=== PATIENT | female | born 1950 | race African-American/Black ===

== ENCOUNTER 2017-01-16 13:46 | Inpatient (IN) | payer OTHER ==
[2017-01-16 13:57] VITALS: BMI 47.8
[2017-01-16] MEDS ORDERED: KETOROLAC TROMETHAMINE 10 MG TABLET PO ONE (14:16)
[2017-01-16] MEDS ORDERED: KETOROLAC TROMETHAMINE 60 MG/2 ML VIAL IVPUSH ONE (14:22)
[2017-01-16] MEDS ORDERED: KETOROLAC TROMETHAMINE 60 MG/2 ML VIAL IM ONE (14:25)
--- NOTE | 2017-01-16 14:35 | PDOC ---
History of Present Illness - General Chief Complaint: Injury Stated Complaint: FALL/LEG PAIN Time Seen by Provider: 01/16/17 13:59 - History of Present Illness Initial Comments: 01/16/17 14:29 Ms. Garcia is a 66 yo F with h/o morbid obesity, mechanical fall ( 11/11/15), HTN , and arthritis who presents with right knee pain following mechanical fall. She reports walking to [facility] [employer] approximately one hour ago when her shoe became "caught on the sidewalk." She fell directly on her right knee and landed on her right hip. She denies back or head trauma. Denies inciting syncopal event , dizziness, or presyncope precipitating fall. Denies MCKEON, neck stiffness, N/V, LOC, weakness, chest pain, abdominal glover, SOB, or fatigue. Pt. arrived in EMS, and denies ambulation following the fall. Her immobility is d/t pain. Past History - Past History Allergies/Adverse Reactions: Allergies No Known Drug Allergies Allergy (Verified 01/16/17 13:58) Home Medications: Ambulatory Orders Gabapentin [Neurontin] 300 mg PO TID 11/11/15 Tramadol HCl 25 mg PO QID 11/11/15 Valsartan/Hydrochlorothiazide [Diovan Hct 160-25 mg Tablet] 1 combo PO DAILY 06/16 Felodipine [Felodipine ER] 2.5 mg PO DAILY 05/16/16 - Social History Smoking Status: Never smoked Review of Systems - Review of Systems Comments:: 01/16/17 14:34 GENERAL/CONSTITUTIONAL: No fever or chills. No weakness. HEAD, EYES, EARS, NOSE AND THROAT: No change in vision. No ear pain or discharge. No sore throat. CARDIOVASCULAR: No chest pain or shortness of breath RESPIRATORY: No cough, wheezing, or hemoptysis. GASTROINTESTINAL: No nausea, vomiting, diarrhea or constipation. GENITOURINARY: No dysuria, frequency, or change in urination. MUSCULOSKELETAL: + arthralgias. No joint or muscle swelling . No neck or back pain. SKIN: No rash NEUROLOGIC: No headache, vertigo, loss of consciousness, or change in strength/ sensation. ENDOCRINE: No increased thirst. No abnormal weight change HEMATOLOGIC/LYMPHATIC: No anemia, easy bleeding, or history of blood clots. ALLERGIC/IMMUNOLOGIC: No hives or skin allergy. *Physical Exam - Vital Signs Last Vital Signs Temp Pulse Resp BP Pulse Ox 97.8 F 94 H 16 159/88 97 01/16/17 13:54 01/16/17 13:54 01/16/17 13:54 01/16/17 13:54 01/16/17 13:54 - Physical Exam Comments: 01/16/17 14:35 GENERAL: Awake, alert, and fully oriented, in no acute distress HEAD: No signs of trauma, normocephalic, atraumatic EYES: PERRLA, EOMI, sclera anicteric, conjunctiva clear ENT: Auricles normal inspection, hearing grossly normal, nares patent, oropharynx clear without exudates. Moist mucosa NECK: Normal ROM, supple, no lymphadenopathy, JVD, or masses LUNGS: No distress, speaks full sentences, clear to auscultation bilaterally HEART: Denies rib pain. Chest nontender to palpation. Regular rate and rhythm, normal S1 and S2, no murmurs, rubs or gallops, peripheral pulses normal and equal bilaterally. ABDOMEN: Soft, nontender, normoactive bowel sounds. No guarding, no rebound. No masses EXTREMITIES: Normal inspection, no edema. No clubbing or cyanosis. Able to plantat flex, and dorsal flex knees BL. Knee exam: Right knee exam limited d/t pain and morbid obesity. Difficult to assess. Clear to inspection. No visible abrasions, ecchymosis, or effusions. Inadequate passive and active range of motion on knee flexion/extension/ abduction/adduction. No bony deformities visualized. TTP at tibial tuberosity and inferior patella. Hip exam: Limited exam. Pt. right leg shortened and externally rotated. TTP at right greater trochanter. NEUROLOGICAL: Cranial nerves II through XII grossly intact. Normal speech, normal gait, no focal sensorimotor deficits SKIN: Warm, Dry, normal turgor, no rashes or lesions noted. ED Treatment Course - LABORATORY CBC & Chemistry Diagram: 01/16/17 16:30 01/16/17 16:30 - RADIOLOGY Radiology Studies Ordered: Category Date Time Status HIP & PELVIS-RIGHT [RAD] Stat Radiology 01/16/17 14:28 Ordered KNEE 3 POS-RIGHT [RAD] Stat Radiology 01/16/17 14:28 Ordered - Medications Given in the ED: ED Medications Discontinued Medications Generic Name Dose Route Start Last Admin Trade Name Michelle PRN Reason Stop Dose Admin Ketorolac Tromethamine 20 mg 01/16/17 14:16 01/16/17 14:23 Toradol PO 01/16/17 14:17 Not Given ONCE ONE Medical Decision Making - Medical Decision Making 01/16/17 14:39 66 yo F with h/o morbid obesity, HTN, arthritis, who presents with right knee/ hip pain 2/2 mechanical fall. Denies head/neck/back involvement. Denies intoxication or precipitating syncopal/pre syncopal event. Fall as a result of improper foot placement. No concern for right ankle trauma. Normal plantar and dorsal flexion. No concern for rib fracture. Absent paradoxical breathing, or chest wall tenderness. There is a moderate suspicion for right hip/pelvic fracture. Right leg is shortened and fixed in external rotation. Pain to palpation over greater trochanter. Moderate suspicion for right knee injury/ fracture. Unable to passively flex/extend right knee. Potentially d/t pain vs. immobility. Physical exam limited d/t morbid obesity. ED Course: - Ketorolac 60 mg IM - Knee 3 POS-RT - HIP & PELVIS RT 01/16/17 16:43 - Knee 3 POS-RT Reveals distal comminuted laterally displaced femur fracture. - HIP & PELVIS - no acute fracture or pathology 01/16/17 16:44 CBC, CMP, PT/INR EKG CXR Admit to Med/Surg and consult Orthopedics *DC/Admit/Observation/Transfer Diagnosis at time of Disposition: Femur fracture, right Qualifiers: Encounter type: initial encounter Fracture morphology: comminuted Fracture alignment: displaced - Discharge Dispostion Condition at time of disposition: Stable Admit: Yes - Referrals Referrals: Warren Ruggiero MD [Primary Care Provider] - - Attestations Physician Attestion: 01/16/17 17:50 I, Dr. Ashvin York, attest that this document has been prepared under my direction and personally reviewed by me in its entirety. I further attest, that it accurately reflects all work, treatment, procedures and medical decision -making performed by me.
[2017-01-16] MEDS ORDERED: KETOROLAC TROMETHAMINE 60 MG/2 ML VIAL ONE (14:42)
--- NOTE | 2017-01-16 15:03 | PDOC ---
Attending Attestation - Resident Resident Name: Ashvin York - ED Attending Attestation I have performed the following: I have examined & evaluated the patient, The case was reviewed & discussed with the resident, I agree w/resident's findings & plan, Exceptions are as noted - HPI HPI: 01/16/17 14:58 66-year-old female presents with right leg pain after mechanical trip and fall on the sidewalk. No near syncope or loss of consciousness, no head injury, no cardiopulmonary complaints. She was unable to stand or move her right leg since the fall, brought in by EMS and has the same complaints here. - Physicial Exam PE: 01/16/17 14:58 Vital signs normal. Well-appearing, seated in stretcher Atraumatic except for right leg: Is slightly shortened and externally rotated, pelvis is stable, she does have some tenderness to the lateral right hip, but no deformity. Right knee is also tender in the proximal tibia and laterally over the proximal fibula, no palpable deformity. No appreciable joint effusion, she is able to slightly range her knee but not her hip. Neurovascularly intact distally, full range of motion of the ankle and toes. - Medical Decision Making 01/16/17 15:03 Patient seen and evaluated with the resident. I agree with the overall evaluation, assessment, and management with the following summary of visit: 66-year-old female with mechanical trip and fall and right leg injury. Rule out hip or knee fracture, neurovascularly intact. No other injuries. Pain control Right hip/pelvis, right knee x-rays Reassess 01/16/17 16:15 On my preliminary review of the xrays, there is a displaced fracture of the distal R femur. Ortho consult and admission v. transfer. Heart Score/ECG Review #1 ECG reviewed & interpreted by me at: 16:32 General ECG Interpretation: Sinus Rhythm, Normal Rate (71), Normal Intervals, No acute ischemic changes (t wave flattening V3-6)
[2017-01-16 16:44] LABS: BASOPHIL 0.7 % (0-2.0); EOSINOPHIL 2.6 % (0-4.5); MCH 23.2 pg (25.7-33.7); MCHC 31.5 g/dl (32.0-36.0); MEAN CELL VOLUME 73.6 fl (80-96); MEAN PLT VOLUME 8.1 fl (7.5-11.1); NEUTROPHILS 69.1 % (42.8-82.8); PLATELET COUNT 307 K/MM3 (134-434); RDW 17.4 % (11.6-15.6); WHITE BLOOD COUNT 8.3 K/mm3 (4.0-10.0)
[2017-01-16 17:05] LABS: INR 1.08 (0.82-1.09); PROTHROMBIN TIME (PATIENT) 11.9 SEC (9.98-11.88)
[2017-01-16 17:20] LABS: ALBUMIN 3.4 g/dl (3.4-5.0); ANION GAP 10 (8-16); BILIRUBIN,TOTAL 0.3 mg/dL (0.2-1.0); CALCIUM 8.9 mg/dL (8.5-10.1); CO2 28 mmol/L (21-32); CREATININE 0.6 mg/dL (0.55-1.02); GLUCOSE,RANDOM 101 mg/dL (74-106); SGOT/AST 21 U/L (15-37); SGPT/ALT 17 U/L (12-78); TOT PROT 6.8 g/dl (6.4-8.2)
[2017-01-16 17:21] LABS: ALK PHOS 160 U/L (45-117)
--- NOTE | 2017-01-16 17:30 | HP ---
CHIEF COMPLAINT: Right leg pain s/p fall PCP: Warren Ruggiero HISTORY OF PRESENT ILLNESS: This is a 66 year old female with PMHx of HTN, arthritis, hysterectomy/oophrectomy 1996, gastric bypass 2007 who presented to the ED s/p mechanical fall with right leg pain. The patient reports around 1: 15pm she was walking to the [employer] and lost her footing and tripped on the sidewalk. She fell, but did not hit her head or lose consciousness. She reports that she ambulates with a cane and has for a few years now. She denies any nausea, vomiting, headache, dizziness, bladder or bowel incontinence. She reports her pain is an 8/10 to her right leg. ER course was notable for: (1) H/H 9.5/30.1 (2) temp 97.8, pulse 94, bp 159/88, resp 16, o2 97% on RA (3) Right knee x-ray my read: displaced distal right femur fracture (4) Per ED sign out, Dr. Bush made aware of consult PAST MEDICAL HISTORY: HTN, arthritis PAST SURGICAL HISTORY: Hysterectomy/oophrectomy. Gastric bypass Social History: Smoking: none Alcohol: two drinks, once every other week Drugs: none Family History: non-contributory Allergies No Known Drug Allergies Allergy (Verified 01/16/17 13:58) HOME MEDICATIONS: Home Medications Medication Instructions Recorded Gabapentin [Neurontin] 300 mg PO TID 11/11/15 Tramadol HCl 25 mg PO QID 11/11/15 Valsartan/Hydrochlorothiazide 1 combo PO DAILY 11/11/15 [Diovan Hct 160-25 mg Tablet] Felodipine [Felodipine ER] 2.5 mg PO DAILY 05/16/16 REVIEW OF SYSTEMS CONSTITUTIONAL: Absent: fever, chills, diaphoresis, generalized weakness, malaise, loss of appetite, weight change HEENT: Absent: rhinorrhea, nasal congestion, throat pain, throat swelling, difficulty swallowing, mouth swelling, ear pain, eye pain, visual changes CARDIOVASCULAR: Absent: chest pain, syncope, palpitations, irregular heart rate , lightheadedness, peripheral edema RESPIRATORY: Absent: cough, shortness of breath, dyspnea with exertion, orthopnea, wheezing, stridor, hemoptysis GASTROINTESTINAL:Absent: abdominal pain, abdominal distension, nausea, vomiting , diarrhea, constipation, melena, hematochezia GENITOURINARY: Absent: dysuria, frequency, urgency, hesitancy, hematuria, flank pain, genital pain MUSCULOSKELETAL: Right leg pain s/p mechanical fall this afternoon. Absent: back pain, neck pain SKIN: Absent: rash, itching, pallor HEMATOLOGIC/IMMUNOLOGIC: Absent: easy bleeding, easy bruising, lymphadenopathy, frequent infections ENDOCRINE:Absent: unexplained weight gain, unexplained weight loss, heat intolerance, cold intolerance NEUROLOGIC: Absent: headache, focal weakness or paresthesias, dizziness, unsteady gait, seizure, mental status changes, bladder or bowel incontinence PSYCHIATRIC: Absent: anxiety, depression, suicidal or homicidal ideation, hallucinations. PHYSICAL EXAMINATION Vital Signs - 24 hr 01/16/17 13:54 Temperature 97.8 F Pulse Rate 94 H Respiratory 16 Rate Blood Pressure 159/88 O2 Sat by Pulse 97 Oximetry (%) GENERAL: Awake, alert, and fully oriented, in no acute distress. Morbid obesity HEAD: Normal with no signs of trauma. EYES: Pupils equal, round and reactive to light, extraocular movements intact, sclera anicteric, conjunctiva clear. No lid lag. EARS, NOSE, THROAT: Ears normal, nares patent. Moist mucous membranes. NECK: Normal range of motion, supple without lymphadenopathy, or masses. LUNGS: Breath sounds equal, clear to auscultation bilaterally. No wheezes, and no crackles. No accessory muscle use. HEART: Regular rate and rhythm, normal S1 and S2 ABDOMEN: Soft, nontender, not distended, normoactive bowel sounds, no guarding, no rebound, no masses MUSCULOSKELETAL: No CVA tenderness. UPPER EXTREMITIES: 2+ pulses, warm, well-perfused. No cyanosis. No clubbing. No peripheral edema. LOWER EXTREMITIES: Right hip abduction. Right thigh tenderness, decrease ROM 2/ 2 tenderness. 2+ pulses, warm, well-perfused. No calf tenderness. NEUROLOGICAL: Cranial nerves II-XII intact. Normal speech. Gait not observed PSYCHIATRIC: Cooperative. Good eye contact. Appropriate mood and affect. SKIN: Warm, dry, normal turgor, no rashes or lesions noted, normal capillary refill. CBCD WBC 8.3 K/mm3 (4.0-10.0) 01/16/17 16:30 RBC 4.09 M/mm3 (3.60-5.2) 01/16/17 16:30 Hgb 9.5 GM/dL (10.7-15.3) L 01/16/17 16:30 Hct 30.1 % (32.4-45.2) L 01/16/17 16:30 MCV 73.6 fl (80-96) L 01/16/17 16:30 MCHC 31.5 g/dl (32.0-36.0) L 01/16/17 16:30 RDW 17.4 % (11.6-15.6) H 01/16/17 16:30 Plt Count 307 K/MM3 (134-434) 01/16/17 16:30 MPV 8.1 fl (7.5-11.1) 01/16/17 16:30 CMP Sodium 135 mmol/L (136-145) L 01/16/17 16:30 Potassium 3.7 mmol/L (3.5-5.1) 01/16/17 16:30 Chloride 97 mmol/L (98-107) L 01/16/17 16:30 Carbon Dioxide 28 mmol/L (21-32) 01/16/17 16:30 Anion Gap 10 (8-16) 01/16/17 16:30 BUN 18 mg/dL (7-18) 01/16/17 16:30 Creatinine 0.6 mg/dL (0.55-1.02) 01/16/17 16:30 Creat Clearance w eGFR > 60 (>60) 01/16/17 16:30 Random Glucose 101 mg/dL (74-106) 01/16/17 16:30 Calcium 8.9 mg/dL (8.5-10.1) 01/16/17 16:30 Total Bilirubin 0.3 mg/dL (0.2-1.0) 01/16/17 16:30 AST 21 U/L (15-37) 01/16/17 16:30 ALT 17 U/L (12-78) 01/16/17 16:30 Alkaline Phosphatase 160 U/L (45-117) H 01/16/17 16:30 Total Protein 6.8 g/dl (6.4-8.2) 01/16/17 16:30 Albumin 3.4 g/dl (3.4-5.0) 01/16/17 16:30 ASSESSMENT: This is a 66 year old female with PMHx of HTN, arthritis, hysterectomy/oophrectomy 1996, gastric bypass 2007 who presented to the ED s/p mechanical fall with right leg pain. Plan: 1) Ortho: Displaced distal right femur fracture - Pain management - Bedrest - SCD left leg only - F/u ortho consult 2) Cardiology: HTN - Continue Norvasc - Continue Diovan 3) F/E/N: - Monitor electrolytes - NPO until evaluated by ortho 4) Prophylaxis: - Hold all chemical DVT prophylaxis 2/2 possible surgery, awaiting ortho consult - SCDs left leg only 5) Dispo: - Requires continued inpatient care CODE STATUS: FULL CODE Problem List - Problem (1) Femur fracture, right Code(s): S72.91XA - UNSP FRACTURE OF RIGHT FEMUR, INIT FOR CLOS FX Qualifiers : Encounter type: initial encounter Fracture morphology: comminuted Fracture alignment: displaced (2) Hypertension Code(s): I10 - ESSENTIAL (PRIMARY) HYPERTENSION Visit type - Emergency Visit Emergency Visit: Yes ED Registration Date: 01/16/17 Care time: The patient presented to the Emergency Department on the above date and was hospitalized for further evaluation of their emergent condition. - New Patient This patient is new to me today: Yes Date on this admission: 01/17/17 - Critical Care Critical Care patient: No
[2017-01-16] MEDS ORDERED: morphine CARPU-JECT 2 MG/1 ML DISP.SYRIN ONE (17:59)
[2017-01-16] MEDS: DEXTROSE 5%-0.45% SALINE 1,000 ML IV SCH (18:00)
[2017-01-16] MEDS: morphine CARPU-JECT 2 MG/1 ML DISP.SYRIN IVPB PRN ×2 (18:00→23:12)
[2017-01-16] MEDS ORDERED: traMADol HCL 50 MG TABLET PO SCH (18:00)
[2017-01-16] MEDS: GABAPENTIN 100 MG CAPSULE (FP) PO SCH (22:37)
[2017-01-17] MEDS: GABAPENTIN 100 MG CAPSULE (FP) PO SCH ×3 (05:03→21:45)
[2017-01-17] MEDS: morphine CARPU-JECT 2 MG/1 ML DISP.SYRIN IVPB PRN ×4 (05:29→21:45)
[2017-01-17] MEDS: DEXTROSE 5%-0.45% SALINE 1,000 ML IV SCH ×2 (06:41→17:07)
[2017-01-17 07:13] LABS: ANION GAP 7 (8-16); CALCIUM 8.7 mg/dL (8.5-10.1); CO2 29 mmol/L (21-32); CREATININE 0.6 mg/dL (0.55-1.02); GLUCOSE,RANDOM 119 mg/dL (74-106); SGPT/ALT 17 U/L (12-78)
[2017-01-17 07:14] LABS: ALK PHOS 146 U/L (45-117); BILIRUBIN,TOTAL 0.6 mg/dL (0.2-1.0); TOT PROT 6.1 g/dl (6.4-8.2)
[2017-01-17 07:17] LABS: SGOT/AST 23 U/L (15-37)
[2017-01-17] MEDS ORDERED: PATIENT'S OWN MEDICATION (NON-FORMULARY) (Valsartan/Hydrochlorothiazide [Diovan Hct 160-25 PO SCH (10:00)
[2017-01-17] MEDS: amLODIPine BESYLATE 2.5 MG TABLET (FP) PO SCH (10:27)
[2017-01-17] MEDS: VALSARTAN 160 MG TABLET (UD) PO SCH (10:27)
[2017-01-17] MEDS: HYDROCHLOROTHIAZIDE 25 MG TABLET (FP) PO SCH (10:27)
[2017-01-17 12:00] LABS: MCH 23.3 pg (25.7-33.7); MCHC 31.1 g/dl (32.0-36.0); MEAN PLT VOLUME 7.8 fl (7.5-11.1); PLATELET COUNT 274 K/MM3 (134-434); RDW 17.5 % (11.6-15.6); WHITE BLOOD COUNT 7.3 K/mm3 (4.0-10.0)
--- NOTE | 2017-01-17 12:31 | PN ---
Progress Note (short form) - Note Progress Note: Subjective: The patient was seen and examined at the bedside, she is complaining of right lower leg pain 2/2 splint being on too tight. The patient has a below the knee splint with leona bandage to her right lower extremity. It was removed as her DP pulse was diminished. Upon removal of splint, DP return to 2+ in about [address] Bush office to follow-up on consult, awaiting call back Current Medications Generic Name Dose Route Start Last Admin Trade Name Freq PRN Reason Stop Dose Admin Amlodipine Besylate 2.5 mg 01/17/17 10:00 01/17/17 10:27 Norvasc - PO 2.5 mg DAILY TONJA Administration Gabapentin 300 mg 01/16/17 22:00 01/17/17 05:03 Neurontin - PO 300 mg TID TONJA Administration Hydrochlorothiazide 25 mg 01/17/17 10:00 01/17/17 10:27 Hctz - PO 25 mg DAILY TONJA Administration Dextrose/Sodium Chloride 1,000 mls @ 83 mls/hr 01/16/17 17:45 01/17/17 06:41 D5-1/2ns - IV 83 mls/hr ASDIR TONJA Administration Morphine Sulfate 2 mg 01/16/17 17:38 01/17/17 10:25 Morphine Injection - IVPB 2 mg Q4H PRN Administration PAIN Valsartan 160 mg 01/17/17 10:00 01/17/17 10:27 Diovan - PO 160 mg DAILY TONJA Administration Objective: Vital Signs Period Temp Pulse Resp BP Sys/Junior Pulse Ox Last 24 Hr 97.8 F-98.6 F 84-94 12-20 109-159/42-88 95-100 Physical Exam: General: NAD, A&Ox3 Lungs: CTA bilaterally Heart: RRR, S1S2 Abd: Soft, non-tender, non-distended. Normoactive bowel sounds Ext: Right leg external rotation, decrease ROM 2/2 tenderness. 2+ DP/PT bilaterally Neuro: CN 2-12 intact CBCD WBC 7.3 K/mm3 (4.0-10.0) 01/17/17 05:45 RBC 3.77 M/mm3 (3.60-5.2) 01/17/17 05:45 Hgb 8.8 GM/dL (10.7-15.3) L 07/19/17 05:45 Hct 28.3 % (32.4-45.2) L 01/17/17 05:45 MCV 75.0 fl (80-96) L 01/17/17 05:45 MCHC 31.1 g/dl (32.0-36.0) L 01/17/17 05:45 RDW 17.5 % (11.6-15.6) H 01/17/17 05:45 Plt Count 274 K/MM3 (134-434) 01/17/17 05:45 MPV 7.8 fl (7.5-11.1) 01/17/17 05:45 CMP Sodium 134 mmol/L (136-145) L 01/17/17 05:45 Potassium 3.9 mmol/L (3.5-5.1) 01/17/17 05:45 Chloride 98 mmol/L (98-107) 01/17/17 05:45 Carbon Dioxide 29 mmol/L (21-32) 01/17/17 05:45 Anion Gap 7 (8-16) L 01/17/17 05:45 BUN 20 mg/dL (7-18) H 01/17/17 05:45 Creatinine 0.6 mg/dL (0.55-1.02) 01/17/17 05:45 Creat Clearance w eGFR > 60 (>60) 01/17/17 05:45 Random Glucose 119 mg/dL (74-106) H 01/17/17 05:45 Calcium 8.7 mg/dL (8.5-10.1) 01/17/17 05:45 Total Bilirubin 0.6 mg/dL (0.2-1.0) D 01/17/17 05:45 AST 23 U/L (15-37) 01/17/17 05:45 ALT 17 U/L (12-78) 01/17/17 05:45 Alkaline Phosphatase 146 U/L (45-117) H 01/17/17 05:45 Total Protein 6.1 g/dl (6.4-8.2) L 01/17/17 05:45 Albumin 3.0 g/dl (3.4-5.0) L 01/17/17 05:45 ASSESSMENT: This is a 66 year old female with PMHx of HTN, arthritis, hysterectomy/oophrectomy 1996, gastric bypass 2007 who presented to the ED s/p mechanical fall with right leg pain. Plan: 1) Ortho: Displaced distal right femur fracture - Pain management - Bedrest - SCD left leg only - Awaiting ortho consult, called Dr. Bush office 12:45 today, awaiting call back 2) Cardiology: HTN - Continue Norvasc - Continue Diovan 3) F/E/N: - Monitor electrolytes - NPO until evaluated by ortho 4) Prophylaxis: - Hold all chemical DVT prophylaxis 2/2 possible surgery, awaiting ortho consult - SCDs left leg only 5) Dispo: - Requires continued inpatient care CODE STATUS: FULL CODE Problem List - Problems (1) Femur fracture, right Code(s): S72.91XA - UNSP FRACTURE OF RIGHT FEMUR, INIT FOR CLOS FX Qualifiers : Encounter type: initial encounter Fracture morphology: comminuted Fracture alignment: displaced (2) Hypertension Code(s): I10 - ESSENTIAL (PRIMARY) HYPERTENSION Visit type - Emergency Visit Emergency Visit: Yes ED Registration Date: 01/16/17 Care time: The patient presented to the Emergency Department on the above date and was hospitalized for further evaluation of their emergent condition. - New Patient This patient is new to me today: No - Critical Care Critical Care patient: No
--- NOTE | 2017-01-17 14:51 | EKG ---
Test Reason : Blood Pressure : / mmHG Vent. Rate : 071 BPM Atrial Rate : 071 BPM P-R Int : 180 ms QRS Dur : 070 ms QT Int : 386 ms P-R-T Axes : 066 028 028 degrees QTc Int : 419 ms NORMAL SINUS RHYTHM NONSPECIFIC T WAVE ABNORMALITY ABNORMAL ECG NO PREVIOUS ECGS AVAILABLE Confirmed by DMITRY YOUNG MD ([id number]) on 01/17/2017 2:51:03 PM Referred By: Confirmed By:DMITRY YOUNG MD
--- NOTE | 2017-01-17 19:43 | CONSULT ---
Consult - text type - Consultation Consultation Note: S: 66 y/o female with a PMHx of HTN, arthritis admitted with right leg pain. Yesterday while walking to her [employer] [place] the patient states she tripped and fell. She was unable to bear weight on the R leg prompting her to call EMS. Admitted for a R distal femur fracture. Was placed in a short leg splint. Patient with minimal pain. No other complaints. PSHx: hysterectomy/oophrectomy 1996, gastric bypass 2007 Family Hx: NC Social Hx: Denies smoking, ETOH, illicits O: Vital Signs Temperature 98.3 F 01/17/17 18:00 Pulse Rate 87 01/17/17 18:00 Respiratory Rate 19 01/17/17 18:00 Blood Pressure 127/67 01/17/17 18:00 O2 Sat by Pulse Oximetry (%) 100 01/16/17 23:24 VSS. Afebrile. NAD. R leg exam: No deformities. No skin lesions. Tender distal femur. Non-tender hip, knee, ankle, foot b/l. DP pulses 2+/equal. EHL/FHL intact. NVID. Right knee, hip/pelvis x-ray images and reports reviewed demonstrating displaced distal femur fracture. Moderate to severe degenerative changes. A/P: 66 y/o female with a PMHx of HTN, osteoarthritis admitted with a right displaced distal femur fracture -I spoke to the patient and her family regarding the x-ray findings. I have recommended operative management with open reduction, internal fixation. I reviewed the general surgical risks including DVT/PE, CVA, ACS, . I reviewed the specific surgical risks including mal-union, non-union, infection, post-operative pain, hardware failure. Patient has elected to proceed. -Remain strict NWB RLE -Plan for ORIF at 1pm tomorrow with Dr. العراقي -NPO at midnight -Case reviewed with Dr. العراقي who was in agreement with the above clinical treatment plan
[2017-01-18] MEDS: morphine CARPU-JECT 2 MG/1 ML DISP.SYRIN IVPB PRN (02:13)
[2017-01-18] MEDS: GABAPENTIN 100 MG CAPSULE (FP) PO SCH ×2 (05:46→13:28)
[2017-01-18] MEDS: DEXTROSE 5%-0.45% SALINE 1,000 ML IV SCH (05:50)
[2017-01-18 07:16] LABS: ALBUMIN 2.6 g/dl (3.4-5.0); ALK PHOS 122 U/L (45-117); ANION GAP 7 (8-16); BILIRUBIN,TOTAL 0.4 mg/dL (0.2-1.0); CALCIUM 8.3 mg/dL (8.5-10.1); CO2 28 mmol/L (21-32); CREATININE 0.4 mg/dL (0.55-1.02); GLUCOSE,RANDOM 119 mg/dL (74-106); SGPT/ALT 13 U/L (12-78); TOT PROT 5.8 g/dl (6.4-8.2)
[2017-01-18 07:21] LABS: BASOPHIL 0.6 % (0-2.0); EOSINOPHIL 2.9 % (0-4.5); MCH 23.9 pg (25.7-33.7); MCHC 32.4 g/dl (32.0-36.0); MEAN CELL VOLUME 73.6 fl (80-96); NEUTROPHILS 63.3 % (42.8-82.8); PLATELET COUNT 241 K/MM3 (134-434); RDW 17.6 % (11.6-15.6); WHITE BLOOD COUNT 7.8 K/mm3 (4.0-10.0)
[2017-01-18 07:26] LABS: SGOT/AST 21 U/L (15-37)
--- NOTE | 2017-01-18 08:35 | PN ---
Progress Note (short form) - Note Progress Note: Subjective: The patient was seen and examined at the bedside, she has no complaints at this time For OR today Current Medications Generic Name Dose Route Start Last Admin Trade Name Michelle PRN Reason Stop Dose Admin Amlodipine Besylate 2.5 mg 01/17/17 10:00 01/17/17 10:27 Norvasc - PO 2.5 mg DAILY TONJA Administration Gabapentin 300 mg 01/16/17 22:00 01/18/17 05:46 Neurontin - PO Not Given TID TONAJ Hydrochlorothiazide 25 mg 01/17/17 10:00 01/17/17 10:27 Hctz - PO 25 mg DAILY TONJA Administration Dextrose/Sodium Chloride 1,000 mls @ 83 mls/hr 01/16/17 17:45 01/18/17 05:50 D5-1/2ns - IV 83 mls/hr ASDIR TONJA Administration Morphine Sulfate 2 mg 01/17/17 14:11 01/18/17 02:13 Morphine Injection - IVPB 2 mg Q3H PRN Administration PAIN Valsartan 160 mg 01/17/17 10:00 01/17/17 10:27 Diovan - PO 160 mg DAILY TONJA Administration Objective: Vital Signs Period Temp Pulse Resp BP Sys/Junior Pulse Ox Last 24 Hr 97.9 F-99.6 F 72-103 18-22 109-127/42-67 96 Physical Exam: General: NAD, A&Ox3 Lungs: CTA bilaterally Heart: RRR, S1S2 Abd: Soft, non-tender, non-distended. Normoactive bowel sounds Ext: Right leg external rotation, decrease ROM 2/2 tenderness. 2+ DP/PT bilaterally Neuro: CN 2-12 intact CBCD WBC 7.8 K/mm3 (4.0-10.0) 01/18/17 06:05 RBC 3.54 M/mm3 (3.60-5.2) L 01/18/17 06:05 Hgb 8.4 GM/dL (10.7-15.3) L 01/18/17 06:05 Hct 26.0 % (32.4-45.2) L 01/18/17 06:05 MCV 73.6 fl (80-96) L 01/18/17 06:05 MCHC 32.4 g/dl (32.0-36.0) 01/18/17 06:05 RDW 17.6 % (11.6-15.6) H 01/18/17 06:05 Plt Count 241 K/MM3 (134-434) 01/18/17 06:05 MPV 8.0 fl (7.5-11.1) 01/18/17 06:05 CMP Sodium 137 mmol/L (136-145) 01/18/17 06:05 Potassium 3.8 mmol/L (3.5-5.1) 01/18/17 06:05 Chloride 102 mmol/L (98-107) 01/18/17 06:05 Carbon Dioxide 28 mmol/L (21-32) 01/18/17 06:05 Anion Gap 7 (8-16) L 01/18/17 06:05 BUN 11 mg/dL (7-18) D 01/18/17 06:05 Creatinine 0.4 mg/dL (0.55-1.02) L D 01/18/17 06:05 Creat Clearance w eGFR > 60 (>60) 01/18/17 06:05 Random Glucose 119 mg/dL (74-106) H 01/18/17 06:05 Calcium 8.3 mg/dL (8.5-10.1) L 01/18/17 06:05 Total Bilirubin 0.4 mg/dL (0.2-1.0) D 01/18/17 06:05 AST 21 U/L (15-37) 01/18/17 06:05 ALT 13 U/L (12-78) D 01/18/17 06:05 Alkaline Phosphatase 122 U/L (45-117) H 01/18/17 06:05 Total Protein 5.8 g/dl (6.4-8.2) L 01/18/17 06:05 Albumin 2.6 g/dl (3.4-5.0) L 01/18/17 06:05 ASSESSMENT: This is a 66 year old female with PMHx of HTN, arthritis, hysterectomy/oophrectomy 1996, gastric bypass 2007 who presented to the ED s/p mechanical fall with right leg pain. Plan: 1) Ortho: Displaced distal right femur fracture - Pain management - Bedrest - SCD left leg only - For OR today - Stat CT RLE ordered by ortho PA prior to surgery - The patient has a history of HTN. She has no signs of ACS, no angina noted per patient. EKG reviewed. There are no medical contraindicated to orthopedic surgery today. - Appreciate ortho consult 2) Cardiology: HTN - Continue Norvasc - Continue Diovan 3) F/E/N: - Monitor electrolytes - NPO for surgery today 4) Prophylaxis: - Hold all chemical DVT prophylaxis 2/2 surgery today - SCDs left leg only 5) Dispo: - Requires continued inpatient care CODE STATUS: FULL CODE Problem List - Problems (1) Femur fracture, right Code(s): S72.91XA - UNSP FRACTURE OF RIGHT FEMUR, INIT FOR CLOS FX Qualifiers : Encounter type: initial encounter Fracture morphology: comminuted Fracture alignment: displaced (2) Hypertension Code(s): I10 - ESSENTIAL (PRIMARY) HYPERTENSION
[2017-01-18] MEDS: VALSARTAN 160 MG TABLET (UD) PO SCH (10:15)
[2017-01-18] MEDS: amLODIPine BESYLATE 2.5 MG TABLET (FP) PO SCH (10:15)
[2017-01-18] MEDS: HYDROCHLOROTHIAZIDE 25 MG TABLET (FP) PO SCH (10:15)
[2017-01-18] MEDS ORDERED: BUPIVACAINE HCL/PF 0.25% (2.5MG/ML) 10 ML VIAL ONE (14:49)
[2017-01-18] MEDS ORDERED: ROPIVACAINE HCL 0.5% 30ML VIAL ONE (14:49)
[2017-01-18] MEDS ORDERED: MIDAZOLAM HCL 2 MG/2 ML SINGLE DOSE VIAL ONE ×2 (14:51)
[2017-01-18] MEDS ORDERED: SUCCINYLCHOLINE CHLORIDE 200 MG/10 ML VIAL ONE (16:36)
[2017-01-18] MEDS ORDERED: ROCURONIUM BROMIDE 50 MG/5 ML VIAL ONE (16:37)
[2017-01-18] MEDS ORDERED: PROPOFOL 20 ML ONE (16:39)
[2017-01-18] MEDS ORDERED: ceFAZolin SODIUM 1 GM VIAL ONE (16:52)
[2017-01-18] MEDS ORDERED: ePHEDrine SULFATE 50 MG/1 ML AMPULE ONE (16:56)
[2017-01-18] MEDS ORDERED: ceFAZolin SODIUM 1 GM VIAL IVPB ONE (17:00)
[2017-01-18] MEDS ORDERED: DEXAMETHASONE SOD PHOSPHATE 4 MG/1 ML VIAL ONE (17:23)
[2017-01-18] MEDS ORDERED: PHENYLEPHRINE HCL 10 MG/1 ML SINGLE DOSE VIAL ONE (17:48)
[2017-01-18] MEDS ORDERED: TRANEXAMIC ACID 1000 MG/10 ML VIAL ONE (17:48)
[2017-01-18] MEDS ORDERED: VANCOMYCIN 1,000 MG VIAL (RESTRICTED TO ID ONLY) ONE (19:45)
[2017-01-18] MEDS ORDERED: KETOROLAC TROMETHAMINE 30 MG/1 ML VIAL ONE (19:49)
[2017-01-18] MEDS ORDERED: ONDANSETRON 4 MG/2 ML VIAL IVPUSH PRN ×4 (19:49→21:10)
[2017-01-18] MEDS ORDERED: ACETAMINOPHEN 1000 MG/100 ML VIAL (NON FORMULARY) IVPB ONE ×2 (19:49→21:10)
[2017-01-18] MEDS ORDERED: oxyCODONE HCL 5 MG TABLET PO PRN ×3 (19:49→21:10)
[2017-01-18] MEDS ORDERED: BACITRACIN 15 GM TUBE TOPICAL OINTMENT ONE (20:00)
[2017-01-18] MEDS ORDERED: BACITRACIN 15 GM TUBE TOPICAL OINTMENT TP ONE (20:02)
[2017-01-18] MEDS ORDERED: PROMETHAZINE HCL 25 MG/1 ML VIAL IVPUSH PRN ×2 (20:26→21:10)
[2017-01-18] MEDS ORDERED: LACTATED RINGERS SOLUTION 1,000 ML IV SCH ×2 (20:30→21:10)
--- NOTE | 2017-01-18 20:44 | OP ---
Operative Note - Note: Operative Date: 01/18/17 Pre-Operative Diagnosis: right distal femur fx Operation: ORIF R distal femur Implants: dionicio axsos 3 distal femoral plate, Ti Post-Operative Diagnosis: Same as Pre-op Surgeon: Tyree العراقي Overlock Waistline Joiner: Yessica Mckeon Anesthesiologist/CORE BAKER: Kiko Ledesma Anesthesia: General Estimated Blood Loss (mls): 300
[2017-01-18] MEDS ORDERED: ACETAMINOPHEN INJECTION 100 ML IVPB ONE (20:47)
--- NOTE | 2017-01-18 20:59 | OP ---
DATE OF OPERATION: 01/18/2017 PREOPERATIVE DIAGNOSIS: Right distal femur fracture, supracondylar. POSTOPERATIVE DIAGNOSIS: Right distal femur fracture, supracondylar. PROCEDURE: Right distal femur open reduction internal fixation. SURGEON: Tyree العراقي MD PRINTED CIRCUIT BOARD LAYOUT DESIGNER: Yessica Mckeon PA-C, whose skillful assistance was necessary for the safe and timely performance of this procedure. Ms. Mckeon was able to assist in limb positioning, retraction, fracture reduction, as well as the insertion of orthopedic hardware while the assembler surgical garment was manipulating complicated instruments. BLOOD LOSS: 300 mL. IMPLANTS: [place] locking distal femoral plate, titanium, AxSOS 3 System with associated locking and nonlocking screws. POSTOPERATIVE CONDITION: Stable. COMPLICATIONS: None. INDICATIONS: This is a pleasant woman who suffered a distal femoral fracture. Given that it is displaced, operative management was recommended. Nonoperative care was discussed including prolonged bed rest and malunion. Operative risks were reviewed in detail including bleeding, infection, neurovascular injury, need for further surgery, postoperative pain and stiffness, nonunion, malunion, hardware cutout or failure. We discussed that it was likely going to require a total knee replacement and she already required this prior to the surgery and arthritis would only get worse after a trauma. She may need removal of hardware in order to accomplish total knee replacement. We discussed medical risks such as heart attack, stroke, DVT, PE, and . The patient voiced understanding. Her 's and her questions were addressed. They elected to proceed. PROCEDURE: The patient was brought to the operating room after administration of a regional block. General anesthesia was administered. The patient was placed onto the table, careful to pad all the bony prominences. The right lower extremity was then prepped and draped in the usual sterile fashion. Preoperative antibiotics were given. The usual timeout for procedure was performed. At this point, the incision was planned out over the distal lateral femur. This was carried down through the skin to the subcutaneous tissue. Electrocautery was used to maintain hemostasis. The IT band was identified and then split in line with its fibers, exposing the femur at the fracture site. An elevator was used to elevate the soft tissues off of the lateral aspect of the fracture. Any loose debris was removed as well. The fracture was now manipulated into a near anatomic reduction. The plate was chosen and inserted along the lateral femur. The plate was fixed distally initially using a K-wire. The placement was verified fluoroscopically and visually the fluoroscope in 2 planes. The plate was now fixed proximally using percutaneous technique. The trocar was then inserted through a small incision down to the level of the plate. A K-wire was now inserted through the trocar and this was in the most proximal hole. Initially, it was attempted to use a nonlocking screw through the proximal portion of the wounds to bring the plate close to the bone. This, however, resulted in angulation of the fracture site. The screw was then removed. The decision was now made to fix the plate distally, utilizing a locking screw in order to secure the reduction. The trocar was inserted. The locking screw was chosen and inserted in the standard fashion. With the reduction now stabilized, the whirly bird device was now inserted through the 3rd hole in the plate proximally. This secured the plate down to the bone better. The fracture reduction was maintained during this. The remainder of the distal locking screws were now inserted in the standard fashion. The shaft screws now were filled in utilizing every other hole with a locking screw. The most proximal hole after the K-wire was removed and a nonlocking screw was used to ease the transition of stress at the edge of the plate. At this point, the entire construct was examined both digitally and fluoroscopically. Post fracture reduction, the plate was seen to be satisfactory. The wounds were copiously irrigated. Vancomycin powder was spread throughout the distal wound when the plate was inserted. The IT band was now closed utilizing No. 1 Vicryl suture. Complete subcutaneous tissue was reapproximated using No. 1 Vicryl suture. The subcutaneous tissues were approximated more superficially using 2-0 Vicryl. The skin was closed using 3-0 nylon. Sterile dressings were placed. The patient was extubated and transferred to the recovery room in stable condition. Chante [id number]
[2017-01-18] MEDS ORDERED: DEXTROSE 5%-0.45% SALINE 1,000 ML IV SCH (21:10)
[2017-01-18 21:24] LABS: MCH 22.6 pg (25.7-33.7); MCHC 30.9 g/dl (32.0-36.0); MEAN CELL VOLUME 73.1 fl (80-96); MEAN PLT VOLUME 7.4 fl (7.5-11.1); PLATELET COUNT 274 K/MM3 (134-434); RDW 17.2 % (11.6-15.6)
[2017-01-18] MEDS ORDERED: DOCUSATE SODIUM 100 MG CAPSULE (FP) PO SCH (22:00)
[2017-01-18] MEDS ORDERED: GABAPENTIN 100 MG CAPSULE (FP) PO SCH (22:00)
[2017-01-18] MEDS: DOCUSATE SODIUM 100 MG CAPSULE (FP) PO SCH (22:27)
[2017-01-18] MEDS: oxyCODONE HCL 5 MG TABLET PO PRN (22:28)
[2017-01-19] MEDS: morphine CARPU-JECT 2 MG/1 ML DISP.SYRIN IVPB PRN (00:15)
[2017-01-19] MEDS ORDERED: ceFAZolin 2 GRAM PREMIX BAG IVPB SCH ×2 (02:00)
[2017-01-19] MEDS: BENZOCAINE/MENTH/CETYLPYRD CL 1 EACH LOZENGE MM PRN ×2 (03:16→22:30)
[2017-01-19] MEDS: GABAPENTIN 300 MG CAPSULE (FP) PO SCH ×3 (05:45→21:41)
[2017-01-19] MEDS: DOCUSATE SODIUM 100 MG CAPSULE (FP) PO SCH ×3 (05:45→21:40)
[2017-01-19 07:43] LABS: MCH 23.6 pg (25.7-33.7); MCHC 32.2 g/dl (32.0-36.0); MEAN CELL VOLUME 73.5 fl (80-96); MEAN PLT VOLUME 7.9 fl (7.5-11.1); PLATELET COUNT 248 K/MM3 (134-434); RDW 17.2 % (11.6-15.6); WHITE BLOOD COUNT 10.6 K/mm3 (4.0-10.0)
[2017-01-19 08:14] LABS: ALBUMIN 2.6 g/dl (3.4-5.0); ALK PHOS 114 U/L (45-117); ANION GAP 9 (8-16); BILIRUBIN,TOTAL 0.4 mg/dL (0.2-1.0); CALCIUM 8.2 mg/dL (8.5-10.1); CO2 27 mmol/L (21-32); CREATININE 0.8 mg/dL (0.55-1.02); GLUCOSE,RANDOM 209 mg/dL (74-106); SGOT/AST 17 U/L (15-37); SGPT/ALT 12 U/L (12-78); TOT PROT 5.9 g/dl (6.4-8.2)
--- NOTE | 2017-01-19 08:37 | PN ---
Physical Exam: SUBJECTIVE: Patient seen and examined. Has some incisional pain. Otherwise, no complaints. OBJECTIVE: No IV access. Vital Signs Period Temp Pulse Resp BP Sys/Junior Pulse Ox Last 24 Hr 97.7 F-98.7 F 86-104 16-20 88-129/40-67 99-100 GENERAL: The patient is awake, alert, and fully oriented, in no acute distress. HEAD: Normal with no signs of trauma. EYES: PERRL, extraocular movements intact, sclera anicteric, conjunctiva clear. No ptosis. ENT: Ears normal, nares patent, oropharynx clear without exudates, moist mucous membranes. NECK: Trachea midline, full range of motion, supple. LUNGS: Breath sounds equal, clear to auscultation bilaterally, no wheezes, no crackles, no accessory muscle use. HEART: Regular rate and rhythm, S1, S2 without murmur, rub or gallop. ABDOMEN: Soft, nontender, nondistended, normoactive bowel sounds, no guarding, no rebound, no hepatosplenomegaly, no masses. EXTREMITIES: 2+ pulses, warm, well-perfused, chronic edema. Dressing clean, dry , intact. NEUROLOGICAL: Cranial nerves II through XII grossly intact. Normal speech, gait not observed. PSYCH: Normal mood, normal affect. SKIN: Warm, dry, normal turgor, no rashes or lesions noted Laboratory Results - last 24 hr 01/18/17 01/19/17 01/19/17 21:15 06:00 06:00 WBC 13.0 H D 10.6 H RBC 3.45 L 3.22 L Hgb 7.8 L 7.6 L Hct 25.2 L 23.7 L MCV 73.1 L 73.5 L MCH 22.6 L 23.6 L MCHC 30.9 L 32.2 RDW 17.2 H 17.2 H Plt Count 274 248 MPV 7.4 L 7.9 Sodium 132 L Potassium 3.8 Chloride 96 L Carbon Dioxide 27 Anion Gap 9 BUN 14 D Creatinine 0.8 D Creat Clearance w eGFR > 60 Random Glucose 209 H D Calcium 8.2 L Total Bilirubin 0.4 AST 17 ALT 12 Alkaline Phosphatase 114 Total Protein 5.9 L Albumin 2.6 L Active Medications Generic Name Dose Route Start Last Admin Trade Name Freq PRN Reason Stop Dose Admin Amlodipine Besylate 2.5 mg 01/19/17 10:00 Norvasc - PO DAILY [facility] Benzocaine/Menthol 1 each 01/19/17 02:22 01/19/17 03:16 Cepacol Lozenge - MM 1 each Q2H PRN Administration SORE THROAT Calcium Carbonate/Cholecalciferol 2 tab 01/19/17 10:00 Os-David 500+D - PO DAILY [facility] Cefazolin Sodium/Dextrose 2 gm 01/19/17 02:00 01/19/17 02:38 Ancef 2 Gm Premixed Ivpb - IVPB 01/20/17 01:59 2 gm Q8H-IV TONJA Administration Docusate Sodium 100 mg 01/18/17 22:00 01/19/17 05:45 Colace - PO 100 mg TID TONJA Administration Enoxaparin Sodium 40 mg 01/19/17 10:00 Lovenox - SQ DAILY [facility] Ferrous Sulfate 325 mg 01/19/17 10:00 Feosol - PO DAILY [facility] Gabapentin 300 mg 01/19/17 05:42 01/19/17 05:45 Neurontin - PO 300 mg TID TONJA Administration Hydrochlorothiazide 25 mg 01/19/17 10:00 Hctz - PO DAILY TONJA Morphine Sulfate 2 mg 01/18/17 21:10 01/19/17 00:15 Morphine Injection - IVPB 2 mg Q3H PRN Administration PAIN Oxycodone HCl 5 mg 01/18/17 21:10 Roxicodone - PO Q3H PRN PAIN LEVEL 1-5 Oxycodone HCl 10 mg 01/18/17 21:10 01/18/17 22:28 Roxicodone - PO 10 mg Q3H PRN Administration PAIN LEVEL 6-10 Valsartan 160 mg 01/19/17 10:00 Diovan - PO DAILY [facility] ASSESSMENT/PLAN: 66 year old female with a history of HTN, arthritis, hysterectomy/oophrectomy 1996, gastric bypass 2007 who presented to the ED s/p mechanical fall with right leg pain. Plan: 1) Ortho: Displaced distal right femur fracture, POD #1 s/p ORIF - Pain management - Non-weight bearing x 6-8 wks; can do ROM of knee per ortho - SCD left leg only - Appreciate ortho consult 2) Cardiology: HTN - Continue Norvasc - Continue Diovan 3) F/E/N: -Monitor electrolytes -Regular diet 4) Prophylaxis: - SCDs left leg only - Lovenox DISPO: Recommend SNF for 6-8wks until can begin PT/rehab. Patient to discuss with her this afternoon and come to a decision. CODE STATUS: FULL CODE
[2017-01-19] MEDS ORDERED: PT OWN MED DRAWER 7, Y5N ONE (09:08)
[2017-01-19] MEDS: ENOXAPARIN NA (PORCINE) 40 MG/0.4 ML DISP.SYRIN SQ SCH (09:09)
[2017-01-19] MEDS: FERROUS SO4 325 MG TABLET (FP) PO SCH (09:09)
[2017-01-19] MEDS: amLODIPine BESYLATE 2.5 MG TABLET (FP) PO SCH (09:09)
[2017-01-19] MEDS: VALSARTAN 160 MG TABLET (UD) PO SCH (09:09)
[2017-01-19] MEDS: CALCIUM 500MG/VIT-D 200 UNITS COMBO TABLET (FP) PO SCH (09:10)
[2017-01-19] MEDS: HYDROCHLOROTHIAZIDE 25 MG TABLET (FP) PO SCH (09:57)
[2017-01-19] MEDS ORDERED: ENOXAPARIN NA (PORCINE) 40 MG/0.4 ML DISP.SYRIN SQ SCH (10:00)
[2017-01-19] MEDS ORDERED: CALCIUM 500MG/VIT-D 200 UNITS COMBO TABLET (FP) PO SCH (10:00)
[2017-01-19] MEDS ORDERED: FERROUS SO4 325 MG TABLET (FP) PO SCH (10:00)
[2017-01-19] MEDS ORDERED: ceFAZolin SODIUM 1 GM VIAL IM ONE (10:00)
--- NOTE | 2017-01-19 11:44 | PN ---
Progress Note (short form) - Note Progress Note: Anesthesia postop note 66Y/o F s/p GA and femoral nerve block for ORIF right femur POD#1, vss, aaox3, pain well controlled, sensory motor intact distally No anesthesia complications.
[2017-01-19] MEDS: oxyCODONE HCL 5 MG TABLET PO PRN ×3 (13:27→21:45)
[2017-01-19 14:03] LABS: BASOPHIL 0.1 % (0-2.0); MCH 23.2 pg (25.7-33.7); MCHC 31.6 g/dl (32.0-36.0); MEAN CELL VOLUME 73.6 fl (80-96); MEAN PLT VOLUME 7.3 fl (7.5-11.1); NEUTROPHILS 85.3 % (42.8-82.8); PLATELET COUNT 236 K/MM3 (134-434); RDW 17.3 % (11.6-15.6); WHITE BLOOD COUNT 11.7 K/mm3 (4.0-10.0)
[2017-01-19] MEDS ORDERED: SENNOSIDES 8.6MG TABLET (FP) PO PRN (17:03)
[2017-01-19 18:04] LABS: ANISOCYTOSIS 1+; PLATELET ESTIMATE ADEQUATE (NORMAL); POIKILOCYTOSIS 1+; POLYCHROMASIA 1+
[2017-01-19 18:05] LABS: OVALOCYTES 1+
--- NOTE | 2017-01-19 18:47 | PN ---
Progress Note, Physician History of Present Illness: POD 1 R distal femur ORIF feeling moderate but controlled pain - Current Medication List Current Medications: Active Medications Amlodipine Besylate (Norvasc -) 2.5 mg PO DAILY [facility] Last Admin: 01/19/17 09:09 Dose: 2.5 mg Benzocaine/Menthol (Cepacol Lozenge -) 1 each MM Q2H PRN PRN Reason: SORE THROAT Last Admin: 01/19/17 03:16 Dose: 1 each Calcium Carbonate/Cholecalciferol (Os-David 500+D -) 2 tab PO DAILY [facility] Last Admin: 01/19/17 09:10 Dose: 2 tab Docusate Sodium (Colace -) 100 mg PO TID [facility] Last Admin: 01/19/17 13:01 Dose: 100 mg Enoxaparin Sodium (Lovenox -) 40 mg SQ DAILY [facility] Last Admin: 01/19/17 09:09 Dose: 40 mg Ferrous Sulfate (Feosol -) 325 mg PO DAILY [facility] Last Admin: 01/19/17 09:09 Dose: 325 mg Gabapentin (Neurontin -) 300 mg PO TID [facility] Last Admin: 01/19/17 13:01 Dose: 300 mg Hydrochlorothiazide (Hctz -) 25 mg PO DAILY [facility] Last Admin: 01/19/17 09:57 Dose: 25 mg Morphine Sulfate (Morphine Injection -) 2 mg IVPB Q3H PRN PRN Reason: PAIN Last Admin: 01/19/17 00:15 Dose: 2 mg Oxycodone HCl (Roxicodone -) 5 mg PO Q3H PRN PRN Reason: PAIN LEVEL 1-5 Last Admin: 01/19/17 09:09 Dose: 5 mg Oxycodone HCl (Roxicodone -) 10 mg PO Q3H PRN PRN Reason: PAIN LEVEL 6-10 Last Admin: 01/19/17 13:27 Dose: 10 mg Senna (Senna -) 2 tab PO HS PRN PRN Reason: CONSTIPATION Valsartan (Diovan -) 160 mg PO DAILY [facility] Last Admin: 01/19/17 09:09 Dose: 160 mg - Objective Vital Signs: Vital Signs Temperature 98.4 F 01/19/17 14:03 Pulse Rate 105 H 01/19/17 14:03 Respiratory Rate 18 01/19/17 14:03 Blood Pressure 120/62 01/19/17 14:03 O2 Sat by Pulse Oximetry (%) 98 01/19/17 09:00 Constitutional: Yes: No Distress, Calm Respiratory: Yes: Regular Additional Findings/Remarks: RLE dressings cdi calves soft NT sens int to LT 2+ dp pulse bilaterally 3/5 EHL TA, 5/5 G S FHL Labs: CBC, BMP 01/19/17 13:45 01/19/17 06:00 INR, PTT INR 1.08 (0.82-1.09) 01/16/17 16:30 Problem List - Problems (1) Femur fracture, right Code(s): S72.91XA - UNSP FRACTURE OF RIGHT FEMUR, INIT FOR CLOS FX Qualifiers : Encounter type: initial encounter Fracture type: closed Fracture morphology: comminuted Fracture alignment: displaced Assessment/Plan s/p ORIF R femur fracture -pain control -dvt proph -NWB RLE -minimize lafleur duration, reinserted due to retention -finish post op abx -f/u post transfusion hct, continue iron, colace
[2017-01-19 22:02] LABS: BASOPHIL 0.3 % (0-2.0); EOSINOPHIL 0.5 % (0-4.5); MCH 24.1 pg (25.7-33.7); MCHC 31.7 g/dl (32.0-36.0); MEAN CELL VOLUME 76.1 fl (80-96); MEAN PLT VOLUME 7.9 fl (7.5-11.1); PLATELET COUNT 253 K/MM3 (134-434); RDW 19.4 % (11.6-15.6); WHITE BLOOD COUNT 12.4 K/mm3 (4.0-10.0)
[2017-01-20] MEDS: BENZOCAINE/MENTH/CETYLPYRD CL 1 EACH LOZENGE MM PRN (01:18)
[2017-01-20] MEDS: oxyCODONE HCL 5 MG TABLET PO PRN (05:39)
[2017-01-20] MEDS: GABAPENTIN 300 MG CAPSULE (FP) PO SCH ×2 (05:40→13:41)
[2017-01-20] MEDS: DOCUSATE SODIUM 100 MG CAPSULE (FP) PO SCH ×2 (05:40→13:41)
--- NOTE | 2017-01-20 07:17 | PN ---
Physical Exam: SUBJECTIVE: Patient seen and examined OBJECTIVE: POD #2 s/p R distal femur ORIF. Received 1 unit PRBC yesterday for H/ H 6.8/21.6. Vital Signs Period Temp Pulse Resp BP Sys/Junior Pulse Ox Last 24 Hr 98.4 F-99.7 F 92-105 18-20 110-148/60-93 98-98 GENERAL: The patient is awake, alert, and fully oriented, in no acute distress. HEAD: Normal with no signs of trauma. EYES: PERRL, extraocular movements intact, sclera anicteric, conjunctiva clear. No ptosis. ENT: Ears normal, nares patent, oropharynx clear without exudates, moist mucous membranes. NECK: Trachea midline, full range of motion, supple. LUNGS: Breath sounds equal, clear to auscultation bilaterally, no wheezes, no crackles, no accessory muscle use. HEART: Regular rate and rhythm, S1, S2 without murmur, rub or gallop. ABDOMEN: Soft, nontender, nondistended, normoactive bowel sounds, no guarding, no rebound, no hepatosplenomegaly, no masses. EXTREMITIES: 2+ pulses, warm, well-perfused, chronic edema. Dressing clean, dry , intact. NEUROLOGICAL: Cranial nerves II through XII grossly intact. Normal speech, gait not observed. PSYCH: Normal mood, normal affect. SKIN: Warm, dry, normal turgor, no rashes or lesions noted Laboratory Results - last 24 hr 01/19/17 01/19/17 01/19/17 06:00 06:00 13:45 WBC 10.6 H 11.7 H RBC 3.22 L 2.93 L Hgb 7.6 L 6.8 L* D Hct 23.7 L 21.6 L MCV 73.5 L 73.6 L MCH 23.6 L 23.2 L MCHC 32.2 31.6 L RDW 17.2 H 17.3 H Plt Count 248 236 MPV 7.9 7.3 L Neutrophils % 85.3 H D Lymphocytes % 10.3 D Monocytes % 4.3 Eosinophils % 0.0 D Basophils % 0.1 Platelet Estimate Adequate Platelet Comment Rare giant plts Polychromasia 1+ Poikilocytosis 1+ Basophilic Stippling Few Anisocytosis 1+ Ovalocytes 1+ Morphology Comment Slide scanned Sodium 132 L Potassium 3.8 Chloride 96 L Carbon Dioxide 27 Anion Gap 9 BUN 14 D Creatinine 0.8 D Creat Clearance w eGFR > 60 Random Glucose 209 H D Calcium 8.2 L Total Bilirubin 0.4 AST 17 ALT 12 Alkaline Phosphatase 114 Total Protein 5.9 L Albumin 2.6 L Blood Type Antibody Screen Spec Expiration Date 01/19/17 01/19/17 15:00 21:30 WBC 12.4 H RBC 3.23 L Hgb 7.8 L D Hct 24.6 L MCV 76.1 L MCH 24.1 L MCHC 31.7 L RDW 19.4 H D Plt Count 253 MPV 7.9 Neutrophils % 75.0 Lymphocytes % 16.7 D Monocytes % 7.5 Eosinophils % 0.5 D Basophils % 0.3 Platelet Estimate Platelet Comment Polychromasia Poikilocytosis Basophilic Stippling Anisocytosis Ovalocytes Morphology Comment Sodium Potassium Chloride Carbon Dioxide Anion Gap BUN Creatinine Creat Clearance w eGFR Random Glucose Calcium Total Bilirubin AST ALT Alkaline Phosphatase Total Protein Albumin Blood Type Cancelled Antibody Screen Cancelled Spec Expiration Date Cancelled Active Medications Generic Name Dose Route Start Last Admin Trade Name Freq PRN Reason Stop Dose Admin Amlodipine Besylate 2.5 mg 01/19/17 10:00 01/19/17 09:09 Norvasc - PO 2.5 mg DAILY [facility] Administration Benzocaine/Menthol 1 each 01/19/17 02:22 01/20/17 01:18 Cepacol Lozenge - MM 1 each Q2H PRN Administration SORE THROAT Calcium Carbonate/Cholecalciferol 2 tab 01/19/17 10:00 01/19/17 09:10 Os-David 500+D - PO 2 tab DAILY [facility] Administration Docusate Sodium 100 mg 01/18/17 22:00 01/20/17 05:40 Colace - PO 100 mg TID TONJA Administration Enoxaparin Sodium 40 mg 01/19/17 10:00 01/19/17 09:09 Lovenox - SQ 40 mg DAILY [facility] Administration Ferrous Sulfate 325 mg 01/19/17 10:00 01/19/17 09:09 Feosol - PO 325 mg DAILY [facility] Administration Gabapentin 300 mg 01/19/17 05:42 01/20/17 05:40 Neurontin - PO 300 mg TID TONJA Administration Hydrochlorothiazide 25 mg 01/19/17 10:00 01/19/17 09:57 Hctz - PO 25 mg DAILY [facility] Administration Morphine Sulfate 2 mg 01/18/17 21:10 01/19/17 00:15 Morphine Injection - IVPB 2 mg Q3H PRN Administration PAIN Oxycodone HCl 5 mg 01/18/17 21:10 01/19/17 09:09 Roxicodone - PO 5 mg Q3H PRN Administration PAIN LEVEL 1-5 Oxycodone HCl 10 mg 01/18/17 21:10 01/20/17 05:39 Roxicodone - PO 10 mg Q3H PRN Administration PAIN LEVEL 6-10 Senna 2 tab 01/19/17 17:03 Senna - PO HS PRN CONSTIPATION Valsartan 160 mg 01/19/17 10:00 01/19/17 09:09 Diovan - PO 160 mg DAILY [facility] Administration ASSESSMENT/PLAN: 66 year old female with a history of HTN, arthritis, hysterectomy/oophrectomy 1996, gastric bypass 2007 who presented to the ED s/p mechanical fall with right leg pain. Plan: 1) Ortho: Displaced distal right femur fracture, POD #1 s/p ORIF - Pain management - Non-weight bearing x 6-8 wks; can do ROM of knee per ortho - SCD left leg only - Appreciate ortho consult 2) Cardiology: HTN - Continue Norvasc - Continue Diovan 3) Anemia -Chronic, on iron as outpatient -States she "always" develops anemia requiring transfusion after surgery -S/p 1 unit PRBC with appropriate increase in hgb -Need to obtain stool for occult blood 4) F/E/N: -Monitor electrolytes -Regular diet 5) Prophylaxis: - SCDs left leg only - Lovenox DISPO: Recommend SNF for 6-8wks until can begin PT/rehab. Patient to discuss with her this afternoon and come to a decision. CODE STATUS: FULL CODE
[2017-01-20] MEDS: CALCIUM 500MG/VIT-D 200 UNITS COMBO TABLET (FP) PO SCH (09:21)
[2017-01-20] MEDS: VALSARTAN 160 MG TABLET (UD) PO SCH (09:21)
[2017-01-20] MEDS: amLODIPine BESYLATE 2.5 MG TABLET (FP) PO SCH (09:21)
[2017-01-20] MEDS: HYDROCHLOROTHIAZIDE 25 MG TABLET (FP) PO SCH (09:21)
[2017-01-20] MEDS: FERROUS SO4 325 MG TABLET (FP) PO SCH (09:21)
[2017-01-20] MEDS: ENOXAPARIN NA (PORCINE) 40 MG/0.4 ML DISP.SYRIN SQ SCH (09:22)
[2017-01-20 11:16] LABS: BASOPHIL 0.4 % (0-2.0); EOSINOPHIL 2.4 % (0-4.5); MCH 24.8 pg (25.7-33.7); MCHC 32.9 g/dl (32.0-36.0); MEAN CELL VOLUME 75.2 fl (80-96); MEAN PLT VOLUME 7.6 fl (7.5-11.1); NEUTROPHILS 64.4 % (42.8-82.8); PLATELET COUNT 278 K/MM3 (134-434); RDW 18.9 % (11.6-15.6); WHITE BLOOD COUNT 10.8 K/mm3 (4.0-10.0)
--- NOTE | 2017-01-20 13:11 | DS ---
Physical Exam: SUBJECTIVE: Patient seen and examined. Complaining of pain at incision site. OBJECTIVE: Transfused yesterday with appropriate increase in hgb. Vital Signs Period Temp Pulse Resp BP Sys/Junior Pulse Ox Last 24 Hr 98.4 F-99.7 F 88-105 18-20 105-148/55-93 96-98 PHYSICAL EXAM GENERAL: The patient is awake, alert, and fully oriented, in no acute distress. HEAD: Normal with no signs of trauma. EYES: PERRL, extraocular movements intact, sclera anicteric, conjunctiva clear. ENT: Ears normal, nares patent, oropharynx clear without exudates, moist mucous membranes. NECK: Trachea midline, full range of motion, supple. LUNGS: Breath sounds equal, clear to auscultation bilaterally, no wheezes, no crackles, no accessory muscle use. HEART: Regular rate and rhythm, S1, S2 without murmur, rub or gallop. ABDOMEN: Soft, nontender, nondistended, normoactive bowel sounds, no guarding, no rebound, no hepatosplenomegaly, no masses. EXTREMITIES: 2+ pulses, warm, well-perfused, no edema. 2+ pulses, warm, well- perfused, chronic edema. Dressing clean, dry, intact. NEUROLOGICAL: Cranial nerves II through XII grossly intact. Normal speech, gait not observed. PSYCH: Normal mood, normal affect. SKIN: Warm, dry, normal turgor, no rashes or lesions noted. LABS Laboratory Results - last 24 hr 01/19/17 01/19/17 01/19/17 13:45 15:00 21:30 WBC 11.7 H 12.4 H RBC 2.93 L 3.23 L Hgb 6.8 L* D 7.8 L D Hct 21.6 L 24.6 L MCV 73.6 L 76.1 L MCH 23.2 L 24.1 L MCHC 31.6 L 31.7 L RDW 17.3 H 19.4 H D Plt Count 236 253 MPV 7.3 L 7.9 Neutrophils % 85.3 H D 75.0 Lymphocytes % 10.3 D 16.7 D Monocytes % 4.3 7.5 Eosinophils % 0.0 D 0.5 D Basophils % 0.1 0.3 Platelet Estimate Adequate Platelet Comment Rare giant plts Polychromasia 1+ Poikilocytosis 1+ Basophilic Stippling Few Anisocytosis 1+ Ovalocytes 1+ Morphology Comment Slide scanned Blood Type Cancelled Antibody Screen Cancelled Spec Expiration Date Cancelled 01/20/17 11:00 WBC 10.8 H RBC 3.17 L Hgb 7.9 L Hct 23.9 L MCV 75.2 L MCH 24.8 L MCHC 32.9 RDW 18.9 H Plt Count 278 MPV 7.6 Neutrophils % 64.4 Lymphocytes % 22.9 D Monocytes % 9.9 Eosinophils % 2.4 D Basophils % 0.4 Platelet Estimate Platelet Comment Polychromasia Poikilocytosis Basophilic Stippling Anisocytosis Ovalocytes Morphology Comment Blood Type Antibody Screen Spec Expiration Date HOSPITAL COURSE: This is a 66 year old female with a history of HTN, arthritis, hysterectomy/oophrectomy 1996, gastric bypass 2007 who presented to the ED s/p mechanical fall with right leg pain and was found to have a displaced right femur fracture. She underwent ORIF on 01/18 and recovered well. Following surgery on 01/19, she developed acute post-hemorrhagic anemia requiring transfusion (H/H 6.8/21.6). She was given one unit of PRBCs and responded appropriately. Her blood pressure has been controlled on her home medications ( Norvasc, Diovan). Her lafleur catheter was discontinued on 01/19 but had to be re- inserted for retention; it was discontinued again today. She is to be non- weightbearing on the operative leg for at least 6 weeks, and so will be discharged to SNF. Date of Admission:01/16/17 Date of Discharge: 01/20/17 Minutes to complete discharge: 35 Discharge Summary Reason For Visit: FRACTURE OF RIGHT FEMUR Current Active Problems Femur fracture, right (Acute) Hypertension (Acute) Condition: Stable - Instructions Diet, Activity, Other Instructions: -Nonweightbearing right leg x 6 wks (may do range of motion exercises) -Continue Lovenox 40mg sq daily x 4 wks for DVT prophylaxis -Recommend oxycodone 5-10mg po q4h prn and gabapentin 100mg po tid standing for pain -Include bowel regimen (Colace/Senna) -Recommend repeat hemoglobin next week -Return to the ED for any new or concerning symptoms Referrals: Warren Ruggiero MD [Primary Care Provider] - Disposition: [facility] - Home Medications Comprehensive Discharge Medication List: Ambulatory Orders Gabapentin [Neurontin] 300 mg PO TID 11/11/15 Tramadol HCl 25 mg PO QID PRN 11/11/15 Valsartan/Hydrochlorothiazide [Diovan Hct 160-25 mg Tablet] 1 combo PO DAILY 06/16 Felodipine [Felodipine ER] 2.5 mg PO DAILY 05/16/16 This patient is new to me today: No Emergency Visit: Yes ED Registration Date: 01/16/17 Care time: The patient presented to the Emergency Department on the above date and was hospitalized for further evaluation of their emergent condition. Critical Care patient: No - Discharge Referral Referred to [facility] Med [facility] No
[2017-01-20] MEDS: morphine CARPU-JECT 2 MG/1 ML DISP.SYRIN IVPB PRN (13:13)
--- NOTE | 2017-01-20 13:48 | PN ---
Progress Note (short form) - Note Progress Note: Pt c/o pain VSS H/H 7.9/23.9 splint clean nvid POD#2 -OOB/PT/NWB -DVT prophylaxis -dispo planning
[2017-01-20 14:12] VITALS: BP 115/55; PULSE 102; TEMP 99.2
== END 2017-01-20 17:01 | DRG 481 ==
LOC: JER 13:46 → JERBED 18:07 → J6S 21:40
PROVIDERS: ADMIT Internal Medicine; ATTEND Registered Nurse Emergency
PROC: 0QSB04Z Reposition Right Lower Femur with Internal Fixation Device, Open Approach (ICD-10-PCS; principal; 2017-01-18 13:00)
PROC: 30233N1 Transfusion of Nonautologous Red Blood Cells into Peripheral Vein, Percutaneous Approach (ICD-10-PCS; 2017-01-19)
DX: S72.8X1A Other fracture of right femur, initial encounter for closed fracture (principal); Z68.42 Body mass index [BMI] 45.0-49.9, adult; D62 Acute posthemorrhagic anemia; I10 Essential (primary) hypertension; E66.01 Morbid (severe) obesity due to excess calories; W01.0XXA Fall on same level from slipping, tripping and stumbling without subsequent striking against object, initial encounter; Y93.89 Activity, other specified; Y92.480 Sidewalk as the place of occurrence of the external cause; Y99.8 Other external cause status; Z98.84 Bariatric surgery status
CPT/HCPCS: 36415; 36430; 71010-TC; 73523-TC; 73562-TC-RT; 73700-TC-RT; 76000-TC; 80053; 85025; 85027; 85610; 85730; 86850; 86870; 86900; 86901; 86902; 86922; 93005; 93010; 94760; 97116-GP; 97161-GP; 99282-25; P9038; P9058

== ENCOUNTER 2019-07-07 12:41 | Emergency (ER) | payer OTHER ==
[2019-07-07 12:46] VITALS: BMI 52.9
--- NOTE | 2019-07-07 13:56 | PDOC ---
History of Present Illness - General Chief Complaint: SIRS, Suspected/Possible Stated Complaint: Cold Symptoms Time Seen by Provider: 07/07/19 13:51 History Source: Patient - History of Present Illness Initial Comments: 07/08/19 01:37 Mounika Garcia is a 69 y/o woman w/hx HTN p/w several weeks of cough, fever, chills, muscle aches. She reports that her symptoms initially began approx 4 weeks ago, but that her symptoms improved temporarily approx one week ago before again worsening. She presents today with concern for the duration of her symptoms. She denies any shortness of breath, chest pain, trouble breathing, nausea, vomiting, diarrhea, abdominal pain. Past History - Past Medical History Allergies/Adverse Reactions: Allergies Allergy/AdvReac Type Severity Reaction Status Date / Time No Known Drug Allergies Allergy Verified 07/07/19 12:46 Home Medications: Ambulatory Orders Gabapentin [Neurontin] 300 mg PO TID 11/11/15 Valsartan/Hydrochlorothiazide [Diovan Hct 160-25 mg Tablet] 1 combo PO DAILY 06/16 Felodipine [Felodipine ER] 2.5 mg PO DAILY 05/16/16 oxyCODONE HCL [Roxicodone -] 5 mg PO Q4H PRN #30 tablet MDD 6 tabs 01/20/17 oxyCODONE HCL [Roxicodone -] 10 mg PO Q4H PRN #30 tablet MDD 12 tabs 01/20/17 Azithromycin [Zithromax 250mg Tablets -] 250 mg PO UTDICT #6 tab 07/07/19 Oseltamivir Phosphate [Tamiflu] 75 mg PO BID 5 Days #10 capsule 07/07/19 Anemia: Yes Asthma: No Cancer: Yes (OVARIAN 1996,STAGE 1A) Cardiac Disorders: No CVA: No COPD: No CHF: No Dementia: No Diabetes: No GI Disorders: No Disorders: No HTN: Yes Hypercholesterolemia: No Liver Disease: No Seizures: No Thyroid Disease: No - Surgical History Abdominal Surgery: Yes (GASTRIC BYPASS 2005 LOST 100 LBS-GAINED 70 LBS BACK) Appendectomy: No Cardiac Surgery: No Cholecystectomy: No Gastric Stapling: Yes (gastric bypass 2007) Lung Surgery: No Neurologic Surgery: No Orthopedic Surgery: No - Psycho Social/Smoking Cessation Hx Smoking History: Never smoked Have you smoked in the past 12 months: No Hx Alcohol Use: Yes Drug/Substance Use Hx: No Substance Use Type: Alcohol Hx Substance Use Treatment: No Review of Systems - Review of Systems Able to Perform ROS?: Yes Comments:: 07/08/19 01:41 ROS: GENERAL/CONSTITUTIONAL: Fever, chills. No weakness. HEAD, EYES, EARS, NOSE AND THROAT: No change in vision. No ear pain or discharge. No sore throat. CARDIOVASCULAR: No chest pain or shortness of breath RESPIRATORY: Cough, wheezing. no hemoptysis. GASTROINTESTINAL: No nausea, vomiting, diarrhea or constipation. GENITOURINARY: No dysuria, frequency, or change in urination. MUSCULOSKELETAL: No joint or muscle swelling or pain. No neck or back pain. SKIN: No rash NEUROLOGIC: No headache, vertigo, loss of consciousness, or change in strength/ sensation. ENDOCRINE: No increased thirst. No abnormal weight change HEMATOLOGIC/LYMPHATIC: No anemia, easy bleeding, or history of blood clots. ALLERGIC/IMMUNOLOGIC: No hives or skin allergy. *Physical Exam - Vital Signs Last Vital Signs Temp Pulse Resp BP Pulse Ox 99.2 F 132 H 20 151/70 96 07/07/19 12:43 07/07/19 12:43 07/07/19 12:43 07/07/19 12:43 07/07/19 12:43 - Physical Exam 07/08/19 01:42 PE: GENERAL: Awake, alert, and fully oriented, in no acute distress HEAD: No signs of trauma, normocephalic, atraumatic EYES: PERRLA, EOMI, sclera anicteric, conjunctiva clear ENT: Auricles normal inspection, hearing grossly normal, nares patent, oropharynx clear without exudates. Moist mucosa NECK: Normal ROM, supple, no lymphadenopathy, JVD, or masses LUNGS: Diffuse mild wheezes. No distress, speaks full sentences HEART: Regular rate and rhythm, normal S1 and S2, no murmurs, rubs or gallops, peripheral pulses normal and equal bilaterally. ABDOMEN: Soft, nontender, normoactive bowel sounds. No guarding, no rebound. No masses EXTREMITIES : Normal inspection, Normal range of motion, no edema. No clubbing or cyanosis NEUROLOGICAL: Cranial nerves II through XII grossly intact. Normal speech, normal gait, no focal sensorimotor deficits SKIN: Warm, Dry, normal turgor, no rashes or lesions noted ED Treatment Course - LABORATORY CBC & Chemistry Diagram: 07/07/19 15:45 07/07/19 15:45 Medical Decision Making - Medical Decision Making 07/08/19 01:43 69F w.hx HTN p/w several weeks of URI symptoms, body aches that improved temporarily before worsening c/w viral URI vs post-viral pneumonia. Tachycardic and febrile on initial evaluation. Plan: CBC CMP EKG CXR Influenza A/B swab Cardiac profile Acetaminophen 1L LR Duoneb x2 Dispo: Likely discharge --- Influenza A - positive CXR - possible L lower lobe consolidation noted On reassessment after duoneb x2 - lungs CTAB. EKG - no acute ischemic changes, NSR, no axis deviation Plan for discharge with tamiflu, azithromycin to cover presumed pneumonia. Discharge - Discharge Information Problems reviewed: Yes Clinical Impression/Diagnosis: Influenza A Condition: Stable Disposition: HOME - Admission No - Additional Discharge Information Prescriptions: Azithromycin [Zithromax 250mg Tablets -] 250 mg PO UTDICT #6 tab Oseltamivir Phosphate [Tamiflu] 75 mg PO BID 5 Days #10 capsule - Follow up/Referral Referrals: Warren Ruggiero MD [Primary Care Provider] - - Patient Discharge Instructions Patient Printed Discharge Instructions: DI for Influenza -- Adult Additional Instructions: You were seen in the ER for cough, fevers, body aches. Your influenza test was positive - you have the flu. We are sending a medication that can help reduce the length of time of the flu. We are also sending an antibiotic to cover for a pneumonia. Please return to the ER if you develop high fevers, weakness, intractable nausea and vomiting, chest pain, or trouble breathing. - Post Discharge Activity
[2019-07-07] MEDS ORDERED: ACETAMINOPHEN 1000 MG/100 ML VIAL (NON FORMULARY) IVPB ONE (14:54)
[2019-07-07] MEDS ORDERED: ALBUTEROL SO4 2.5/IPRATROPIUM 0.5 INH SOL 3 ML VIAL.NEB. NEB ONE ×2 (14:54→15:07)
[2019-07-07] MEDS ORDERED: LACTATED RINGERS SOLUTION 1000 ML INFUS.BAG IV ONE (14:54)
[2019-07-07] MEDS ORDERED: ACETAMINOPHEN INJECTION 100 ML IVPB ONE (15:06)
[2019-07-07 16:01] LABS: BASO % 0.4 % (0-2.0); EOS % 0.4 % (0-4.5); HEMATOCRIT 33.7 % (32.4-45.2); HEMOGLOBIN 10.9 GM/dL (10.7-15.3); MCH 26.9 pg (25.7-33.7); MCHC 32.5 g/dl (32.0-36.0); MEAN CELL VOLUME 82.8 fl (80-96); NEUT % 66.2 % (42.8-82.8); PLATELET COUNT 232 K/MM3 (134-434); RBC 4.07 M/mm3 (3.60-5.2); RDW 15.6 % (11.6-15.6); WHITE BLOOD COUNT 4.9 K/mm3 (4.0-10.0)
--- NOTE | 2019-07-07 16:36 | PDOC ---
Documentation entered by Merari Diaz SCRIBE, acting as scribe for Yovana Horne MD. Yovana Horne MD: This documentation has been prepared by the Emily ellis Brenda, SCRIBE, under my direction and personally reviewed by me in its entirety. I confirm that the documentation accurately reflects all work, treatment, procedures, and medical decision making performed by me. Attending Attestation - Resident Resident Name: Hernan Reid - ED Attending Attestation I have performed the following: I have examined & evaluated the patient, The case was reviewed & discussed with the resident, I agree w/resident's findings & plan, Exceptions are as noted - HPI HPI: 07/07/19 14:09 The patient is a 69 year old female with a PMH of Anemia, Ovarian cancer and HTN who presents to the ED with a complaint of cough body aches x 3 -4 weeks. She had a period when she felt better but then worsened Fevers, chills (subjective) No nausea or vomiting No diarrhea Surgical Hx: Gastric bypass (2005,2006) PCP:Warren Ruggiero 07/07/19 16:19 - Physicial Exam PE: 07/07/19 14:08 GENERAL: The patient is in no acute distress. ENT: Ears normal, nares patent, oropharynx clear without exudates. Moist mucous membranes. NECK: Normal range of motion, supple, no nuchal rigidity LUNGS: Breath sounds equal, clear to auscultation bilaterally. No wheezes, and no crackles. HEART: Regular rate and rhythm, normal S1 and S2 without murmur, rub or gallop. ABDOMEN: Soft, nontender, normoactive bowel sounds. No guarding, no rebound. No masses palpable. EXTREMITIES: Normal range of motion, no edema. NEUROLOGICAL: Cranial nerves II through XII grossly intact. Normal speech. No focal neurological deficits. SKIN: Warm, Dry, normal turgor, no rashes or lesions noted. - Medical Decision Making 07/07/19 15:40 Laboratory Tests 07/07/19 14:20 Influenza A (Rapid) Positive A 07/07/19 16:19 CXR: no acute infiltrate 07/09/19 12:55 Laboratory Tests 07/07/19 07/07/19 15:45 15:45 WBC 4.9 Hgb 10.9 Hct 33.7 D Plt Count 232 BUN 9.2 Creatinine 0.7 Will re assess Clinical impression: influenza, initial presentation
[2019-07-07 16:39] LABS: ALBUMIN 3.1 g/dl (3.4-5.0); BILIRUBIN,TOTAL 0.4 mg/dL (0.2-1); BLOOD UREA NITROGEN 9.2 mg/dL (7-18); CALCIUM 8.5 mg/dL (8.5-10.1); CREATININE 0.7 mg/dL (0.55-1.3); POTASSIUM 3.3 mmol/L (3.5-5.1); TOT PROT 6.9 g/dl (6.4-8.2)
[2019-07-07] MEDS ORDERED: POTASSIUM CHLORIDE TABS 10 MEQ TABLET.ER (FP) PO ONE (17:05)
[2019-07-07] MEDS ORDERED: POTASSIUM CHLORIDE TABS 10 MEQ TABLET.ER (FP) ONE ×2 (17:29→17:38)
[2019-07-07 20:29] VITALS: BP 153/74; PULSE 76; TEMP 99
--- NOTE | 2019-07-08 09:29 | EKG ---
Test Reason : Blood Pressure : / mmHG Vent. Rate : 088 BPM Atrial Rate : 088 BPM P-R Int : 164 ms QRS Dur : 072 ms QT Int : 362 ms P-R-T Axes : 072 015 021 degrees QTc Int : 438 ms NORMAL SINUS RHYTHM NONSPECIFIC ST AND T WAVE ABNORMALITY ABNORMAL ECG WHEN COMPARED WITH ECG OF 16-JAN-2017 16:32, NO SIGNIFICANT CHANGE WAS FOUND Confirmed by Tobin Christianson MD ([id number]) on 07/08/2019 9:29:28 AM Referred By: Confirmed By:Tobin Christianson MD
== END 2019-07-07 19:00 | disposition home or self-care (01) ==
LOC: JER 12:41
PROC: 3E033NZ Introduction of Analgesics, Hypnotics, Sedatives into Peripheral Vein, Percutaneous Approach (ICD-10-PCS; principal; 2019-07-07)
PROC: 3E0F7GC Introduction of Other Therapeutic Substance into Respiratory Tract, Via Natural or Artificial Opening (ICD-10-PCS; 2019-07-07)
DX: J09.X1 Influenza due to identified novel influenza A virus with pneumonia (principal); I10 Essential (primary) hypertension; Z85.43 Personal history of malignant neoplasm of ovary; Z98.84 Bariatric surgery status
CPT/HCPCS: 36415; 71045-TC-FY; 80053; 82550; 84484; 85025; 87040; 87186; 87804; 93005; 93010; 94640; 96374; 99282-25; J0131

== ENCOUNTER 2019-07-09 18:33 | Emergency (ER) | payer OTHER ==
[2019-07-09 19:09] VITALS: BMI 45.1
--- NOTE | 2019-07-09 19:09 | PDOC ---
Rapid Medical Evaluation Chief Complaint: Revisit, Lab Variance Time Seen by Provider: 07/09/19 19:02 Medical Evaluation: Allergies Allergy/AdvReac Type Severity Reaction Status Date / Time No Known Drug Allergies Allergy Verified 07/07/19 12:46 07/09/19 19:06 I have performed a brief in-person evaluation of this patient. The patient presents with a chief complaint of:recalled for + blood cx from visit 2 days ago (Coag neg staph in anaerobic bottle on prelim read. Pt was + for flu and ? pna on cxr. Currently on tamifl and abx and feels that she is getting better. No fever since discharged per pt and no CP or CP currently. H/p morbid obesity, chronic LE edema, arthritis, HTN Pertinent physical exam findings:Stable I have ordered the following:rpt labs and bld cx The patient will proceed to the ED for further evaluation Discharge Disposition - Diagnosis Positive blood culture - Referrals - Patient Instructions - Post Discharge Activity
--- NOTE | 2019-07-09 20:06 | PDOC ---
*Physical Exam - Vital Signs Last Vital Signs Temp Pulse Resp BP Pulse Ox 98.7 F 85 16 133/65 97 07/09/19 19:04 07/09/19 19:04 07/09/19 19:04 07/09/19 19:04 07/09/19 19:04 ED Treatment Course - LABORATORY CBC & Chemistry Diagram: 07/09/19 20:28 07/09/19 20:28 Medical Decision Making - Medical Decision Making 07/09/19 20:06 Patient seen by the advanced practice provider under my direct supervision. Ancillary testing reviewed as necessary. I agree with plan as outlined by the advanced practice provider. Discharge - Discharge Information Problems reviewed: Yes Clinical Impression/Diagnosis: Positive blood culture Condition: Stable Disposition: HOME - Additional Discharge Information Prescriptions: Albuterol Sulfate Inhaler - [Ventolin HFA Inhaler -] 1 - 2 inh PO Q4H #1 inhaler - Follow up/Referral Referrals: Warren Ruggiero MD [Primary Care Provider] - - Patient Discharge Instructions Additional Instructions: You had your preop blood redrawn today. I suspect that you had a positive blood culture last time due to contamination from your skin. Please take your medications from your last visit as directed and finish the entire course. You may use the albuterol inhaler to help with your cough. Follow-up with your primary care doctor this week. Return to the ER for fevers, vomiting, difficulty breathing, or if you have any changes in your symptoms. - Post Discharge Activity
[2019-07-09 20:38] LABS: BASO % 0.7 % (0-2.0); EOS % 1.3 % (0-4.5); HEMATOCRIT 33.2 % (32.4-45.2); HEMOGLOBIN 10.9 GM/dL (10.7-15.3); LYMPH % 33.6 % (8-40); MCH 26.7 pg (25.7-33.7); MCHC 32.8 g/dl (32.0-36.0); MEAN CELL VOLUME 81.5 fl (80-96); MEAN PLT VOLUME 7.5 fl (7.5-11.1); MONO % 6.4 % (3.8-10.2); PLATELET COUNT 261 K/MM3 (134-434); RBC 4.07 M/mm3 (3.60-5.2); RDW 15.6 % (11.6-15.6)
--- NOTE | 2019-07-09 20:52 | PDOC ---
History of Present Illness - General Chief Complaint: Revisit, Lab Variance Stated Complaint: TO BE SEEN Time Seen by Provider: 07/09/19 19:02 History Source: Patient Exam Limitations: No Limitations Past History - Travel Traveled outside of the country in the last 30 days: No Close contact w/someone who was outside of country & ill: No - Past Medical History Allergies/Adverse Reactions: Allergies Allergy/AdvReac Type Severity Reaction Status Date / Time No Known Drug Allergies Allergy Verified 07/07/19 12:46 Home Medications: Ambulatory Orders Gabapentin [Neurontin] 300 mg PO TID 11/11/15 Valsartan/Hydrochlorothiazide [Diovan Hct 160-25 mg Tablet] 1 combo PO DAILY 06/16 Felodipine [Felodipine ER] 2.5 mg PO DAILY 05/16/16 oxyCODONE HCL [Roxicodone -] 5 mg PO Q4H PRN #30 tablet MDD 6 tabs 01/20/17 oxyCODONE HCL [Roxicodone -] 10 mg PO Q4H PRN #30 tablet MDD 12 tabs 01/20/17 Azithromycin [Zithromax 250mg Tablets -] 250 mg PO UTDICT #6 tab 07/07/19 Oseltamivir Phosphate [Tamiflu] 75 mg PO BID 5 Days #10 capsule 07/07/19 Albuterol Sulfate Inhaler - [Ventolin HFA Inhaler -] 1 - 2 inh PO Q4H #1 inhaler 07/09/19 Anemia: Yes Asthma: No Cancer: Yes (OVARIAN 1997,STAGE 1A) Cardiac Disorders: No CVA: No COPD: No CHF: No Dementia: No Diabetes: No GI Disorders: No Disorders: No HTN: Yes Hypercholesterolemia: No Liver Disease: No Seizures: No Thyroid Disease: No - Surgical History Abdominal Surgery: Yes (GASTRIC BYPASS 2005 LOST 100 LBS-GAINED 70 LBS BACK) Appendectomy: No Cardiac Surgery: No Cholecystectomy: No Gastric Stapling: Yes (gastric bypass 2007) Lung Surgery: No Neurologic Surgery: No Orthopedic Surgery: No - Immunization History Immunization Up to Date: Yes - Psycho Social/Smoking Cessation Hx Smoking History: Never smoked Have you smoked in the past 12 months: No Hx Alcohol Use: No Drug/Substance Use Hx: No Substance Use Type: Alcohol Hx Substance Use Treatment: No Review of Systems - Review of Systems Able to Perform ROS?: Yes Comments:: 07/09/19 20:48 CONSTITUTIONAL: Absent: fever, chills, diaphoresis, generalized weakness, malaise, loss of appetite HEENT: Absent: rhinorrhea, nasal congestion, throat pain, throat swelling, difficulty swallowing, mouth swelling, ear pain, eye pain, visual Changes CARDIOVASCULAR: Absent: chest pain, loss of consciousness, palpitations, irregular heart rate, peripheral edema RESPIRATORY: Present: Cough absent: shortness of breath, dyspnea with exertion, orthopnea, wheezing, stridor, hemoptysis GASTROINTESTINAL: Absent: abdominal pain, abdominal distension, nausea, vomiting, diarrhea, constipation, melena, hematochezia GENITOURINARY: Absent: dysuria, frequency, urgency, hesitancy, hematuria, flank pain, genital pain MUSCULOSKELETAL: Absent: myalgia, arthralgia, joint swelling SKIN: Absent: rash, itching, pallor HEMATOLOGIC/IMMUNOLOGIC: Absent: easy bleeding, easy bruising, lymphadenopathy, frequent infections ENDOCRINE: Absent: unexplained weight gain, unexplained weight loss, heat intolerance, cold intolerance NEUROLOGIC: Absent: headache, focal weakness or paresthesias, dizziness, unsteady gait, seizure, mental status changes, bladder or bowel incontinence PSYCHIATRIC: Absent: anxiety, depression, suicidal or homicidal ideation, hallucinations. Is the patient limited Bulgarian proficient: No *Physical Exam - Vital Signs Last Vital Signs Temp Pulse Resp BP Pulse Ox 98.7 F 85 16 133/65 97 07/09/19 19:04 07/09/19 19:04 07/09/19 19:04 07/09/19 19:04 07/09/19 19:04 - Physical Exam 07/09/19 20:49 GENERAL: Well developed, well nourished. Awake and alert. No acute distress. HEENT: Normocephalic, atraumatic. PERRLA, EOMI. No conjunctival pallor. Sclera are non- icteric. Moist mucous membranes. Oropharynx is clear. NECK: Supple. Full ROM. No JVD. Carotid pulses 2+ and symmetric, without bruits. No thyromegaly. No lymphadenopathy. CARDIOVASCULAR: Regular rate and rhythm. No murmurs, rubs, or gallops. Distal pulses are 2+ and symmetric. PULMONARY: No evidence of respiratory distress. Lungs clear to auscultation bilaterally. No wheezing, rales or rhonchi. SKIN: Warm and dry. Normal capillary refill. No rashes. No jaundice. NEUROLOGICAL: Alert, awake, appropriate. Cranial nerves 2-12 intact. No deficits to light touch and temperature in face, upper extremities and lower extremities. No motor deficits in the in face, upper extremities and lower extremities. Normoreflexic in the upper and lower extremities. Normal speech. Toes are down- going bilaterally. Gait is normal without ataxia. PSYCHIATRIC: Cooperative. Good eye contact. Appropriate mood and affect. ED Treatment Course - LABORATORY CBC & Chemistry Diagram: 07/09/19 20:28 07/09/19 20:28 - ADDITIONAL ORDERS Additional order review: 07/09/19 20:28 RBC 4.07 MCV 81.5 MCHC 32.8 RDW 15.6 MPV 7.5 Neutrophils % 58.0 Lymphocytes % 33.6 D Monocytes % 6.4 Eosinophils % 1.3 D Basophils % 0.7 Medical Decision Making - Medical Decision Making 07/09/19 20:49 The patient is a 69-year-old female who read presents to the ER after receiving a phone call for positive blood cultures from her last visit. Patient states that she feels better than 2 days ago. She has been taking her antibiotics as directed. She has not had any fever since being in the emergency department. Denies difficulty breathing, shortness of breath, nausea, vomiting and diarrhea. She states she still has a cough. A/P: Need for repeat labs. Review of the blood cultures from previous visit show 1 anaerobic bottle growth with gram-positive cocci in clusters. Likely skin contaminant. On exam patient still with some expiratory wheezing. Otherwise good aeration to the bases No WBC count. Electrolytes unremarkable. We will add an albuterol inhaler to patient's outpatient medications Patient to follow-up with her primary care doctor this week. Repeat blood culture sent. Discharge home I discussed the physical exam findings, ancillary test results and final diagnoses with the patient. I answered all of the patient's questions. The patient was satisfied with the care received and felt comfortable with the discharge plan and treatment plan. The Patient agrees to follow up with the primary care physician/specialist within 24-72 hours. Return precautions were given. Discharge - Discharge Information Problems reviewed: Yes Clinical Impression/Diagnosis: Positive blood culture Condition: Stable Disposition: HOME - Admission No - Additional Discharge Information Prescriptions: Albuterol Sulfate Inhaler - [Ventolin HFA Inhaler -] 1 - 2 inh PO Q4H #1 inhaler - Follow up/Referral Referrals: Warren Ruggiero MD [Primary Care Provider] - - Patient Discharge Instructions Additional Instructions: You had your preop blood redrawn today. I suspect that you had a positive blood culture last time due to contamination from your skin. Please take your medications from your last visit as directed and finish the entire course. You may use the albuterol inhaler to help with your cough. Follow-up with your primary care doctor this week. Return to the ER for fevers, vomiting, difficulty breathing, or if you have any changes in your symptoms. - Post Discharge Activity
[2019-07-09 21:13] LABS: ALBUMIN 3.2 g/dl (3.4-5.0); BILIRUBIN,TOTAL 0.3 mg/dL (0.2-1); BLOOD UREA NITROGEN 5.4 mg/dL (7-18); CALCIUM 8.7 mg/dL (8.5-10.1); CREATININE 0.6 mg/dL (0.55-1.3); POTASSIUM 3.4 mmol/L (3.5-5.1); TOT PROT 6.9 g/dl (6.4-8.2)
[2019-07-09 22:19] VITALS: BP 128/67; PULSE 82; TEMP 98.1
== END 2019-07-09 22:18 | disposition home or self-care (01) ==
LOC: JER 18:33
DX: R78.81 Bacteremia (principal); I10 Essential (primary) hypertension; D64.9 Anemia, unspecified; Z98.84 Bariatric surgery status; Z85.43 Personal history of malignant neoplasm of ovary
CPT/HCPCS: 36415; 80053; 85025; 87040; 99283-25

== ENCOUNTER 2021-12-10 20:51 | Inpatient (IN) | payer OTHER ==
[2021-12-10] MEDS ORDERED: ACETAMINOPHEN 1000 MG/100 ML BAG IVPB ONE (21:32)
[2021-12-10] MEDS ORDERED: ACETAMINOPHEN INJECTION 100 ML IVPB ONE (21:47)
[2021-12-10 22:11] LABS: BASO % 0.4 % (0-2.0); EOS % 4.2 % (0-4.5); HEMATOCRIT 30.4 % (32.4-45.2); HEMOGLOBIN 9.8 GM/dL (10.7-15.3); LYMPH % 17.3 % (8-40); MCH 25.9 pg (25.7-33.7); MCHC 32.3 g/dl (32.0-36.0); MEAN CELL VOLUME 80.2 fl (80-96); MEAN PLT VOLUME 6.8 fl (7.5-11.1); MONO % 4.2 % (3.8-10.2); NEUT % 73.9 % (42.8-82.8); PLATELET COUNT 406 10^3/uL (134-434); RBC 3.79 M/mm3 (3.60-5.2); RDW 15.6 % (11.6-15.6); WHITE BLOOD COUNT 11.9 K/mm3 (4.0-10.0)
[2021-12-10 22:18] LABS: INR 1.14 (0.83-1.09); PROTHROMBIN TIME (PATIENT) 13.1 SEC (9.7-13.0)
[2021-12-10 22:21] LABS: ACTIVATED PTT 31.9 SECONDS (25.2-36.5)
[2021-12-10 22:28] LABS: CALCIUM 8.7 mg/dL (8.5-10.1)
[2021-12-10 22:29] LABS: ALBUMIN 2.8 g/dl (3.4-5.0); BLOOD UREA NITROGEN 12.4 mg/dL (7-18); MAGNESIUM 2.1 mg/dL (1.8-2.4)
[2021-12-10] MEDS ORDERED: SODIUM CHLORIDE 0.9% 500 ML INFUS.BAG IV ONE (22:30)
[2021-12-10 22:32] LABS: CREATININE 0.9 mg/dL (0.55-1.3)
[2021-12-10 22:34] LABS: BILIRUBIN,TOTAL 0.3 mg/dL (0.2-1)
[2021-12-11] MEDS ORDERED: NYSTATIN POWDER 100,000 UNITS/GM - 15 GM TOPICAL POWDER TP ONE (00:24)
[2021-12-11] MEDS ORDERED: MAGNESIUM SULF 50% (8.12 MEQ/2 ML-1 GM VIAL) IVPB ONE (00:47)
[2021-12-11] MEDS ORDERED: MAGNESIUM SULFATE IN WATER 2 GM/50 ML IVPB IVPB ONE (01:20)
[2021-12-11] MEDS ORDERED: SODIUM CHLORIDE 1,000 ML IV SCH (01:45)
[2021-12-11] MEDS ORDERED: POTASSIUM CHLORIDE TABS 20 MEQ TABLET.ER (FP) PO ONE (01:47)
[2021-12-11] MEDS ORDERED: KCL 10 MEQ IVPB 10 MEQ/100 ML INFUS.BAG IVPB SCH (02:30)
[2021-12-11 03:08] LABS: RETICULOCYTES 1.83 % (0.5-1.5)
[2021-12-11 04:00] LABS: EPI CELLS 6 /uL (0-25.1); HYALINE CASTS 0 /uL (0-3.1); PH,URINE 5.5 (5.0-8.0); URINE APPEARANCE CLOUDY; URINE BACTERIA 7710 /uL (0-1359); URINE BILIRUBIN NEGATIVE (NEGATIVE); URINE COLOR YELLOW; URINE GLUCOSE (UA) NEGATIVE (NEGATIVE); URINE KETONE NEGATIVE (NEGATIVE); URINE LEUK ESTERASE 2+ (NEGATIVE); URINE NITRITE NEGATIVE (NEGATIVE); URINE PROTEIN NEGATIVE (NEGATIVE); URINE RBC 28 /uL (0-23.9); URINE WBC 1166 /uL (0-25.8)
[2021-12-11] MEDS ORDERED: ENOXAPARIN NA (PORCINE) 40 MG/0.4 ML DISP.SYRIN SQ SCH (10:00)
[2021-12-11] MEDS ORDERED: ENOXAPARIN NA (PORCINE) 40 MG/0.4 ML DISP.SYRIN SQ ONE ×2 (10:20→22:18)
[2021-12-11] MEDS ORDERED: CEFTRIAXONE 1 GM/50 ML BAG ONE (10:21)
[2021-12-11] MEDS: CEFTRIAXONE 1 GM in DEXTROSE 5%-WATER - 50 ML IVPB SCH (10:43)
[2021-12-11] MEDS: ENOXAPARIN NA (PORCINE) 40 MG/0.4 ML DISP.SYRIN SQ SCH ×2 (10:43→22:26)
[2021-12-11] MEDS ORDERED: VALSARTAN 80 MG TABLET ONE (16:56)
[2021-12-11] MEDS: VALSARTAN 160 MG TABLET PO SCH (17:10)
[2021-12-11] MEDS ORDERED: GABAPENTIN 300 MG CAPSULE ONE (22:17)
[2021-12-11] MEDS: GABAPENTIN 300 MG CAPSULE PO SCH (22:26)
[2021-12-11] MEDS ORDERED: traMADol HCL 50 MG TABLET ONE (22:38)
[2021-12-11] MEDS ORDERED: KCL 10 MEQ IVPB 10 MEQ/100 ML INFUS.BAG IVPB ONE (22:38)
[2021-12-11 22:44] LABS: HEMATOCRIT 27.6 % (32.4-45.2); HEMOGLOBIN 9.1 GM/dL (10.7-15.3); MCH 26.4 pg (25.7-33.7); MCHC 33.1 g/dl (32.0-36.0); MEAN CELL VOLUME 79.7 fl (80-96); MEAN PLT VOLUME 6.5 fl (7.5-11.1); PLATELET COUNT 398 10^3/uL (134-434); RBC 3.46 M/mm3 (3.60-5.2); RDW 15.7 % (11.6-15.6); WHITE BLOOD COUNT 9.6 K/mm3 (4.0-10.0)
[2021-12-11] MEDS: traMADol HCL 50 MG TABLET PO SCH (22:52)
[2021-12-11 22:57] LABS: ALBUMIN 2.6 g/dl (3.4-5.0); CALCIUM 8.5 mg/dL (8.5-10.1)
[2021-12-11 22:58] LABS: BLOOD UREA NITROGEN 12.9 mg/dL (7-18)
[2021-12-11 23:00] LABS: CREATININE 0.9 mg/dL (0.55-1.3)
[2021-12-11 23:02] LABS: BILIRUBIN,TOTAL 0.2 mg/dL (0.2-1); TOT PROT 6.4 g/dl (6.4-8.2)
[2021-12-12] MEDS: GABAPENTIN 300 MG CAPSULE PO SCH ×3 (05:59→21:35)
[2021-12-12 07:49] LABS: BASO % 0.5 % (0-2.0); EOS % 4.5 % (0-4.5); HEMATOCRIT 28.3 % (32.4-45.2); HEMOGLOBIN 9.3 GM/dL (10.7-15.3); LYMPH % 36.2 % (8-40); MCH 26.5 pg (25.7-33.7); MCHC 32.7 g/dl (32.0-36.0); MEAN CELL VOLUME 80.9 fl (80-96); MONO % 4.9 % (3.8-10.2); NEUT % 53.9 % (42.8-82.8); PLATELET COUNT 403 10^3/uL (134-434); RBC 3.49 M/mm3 (3.60-5.2); RDW 15.9 % (11.6-15.6); WHITE BLOOD COUNT 8.7 K/mm3 (4.0-10.0)
[2021-12-12 08:07] LABS: ALBUMIN 2.7 g/dl (3.4-5.0); CALCIUM 8.9 mg/dL (8.5-10.1)
[2021-12-12 08:08] LABS: BLOOD UREA NITROGEN 11.4 mg/dL (7-18); MAGNESIUM 1.9 mg/dL (1.8-2.4)
[2021-12-12 08:10] LABS: CREATININE 0.7 mg/dL (0.55-1.3)
[2021-12-12 08:12] LABS: BILIRUBIN,TOTAL 0.3 mg/dL (0.2-1); TOT PROT 6.8 g/dl (6.4-8.2)
[2021-12-12] MEDS ORDERED: DEXTROSE 5%-WATER - 50 ML IVPB ONE (09:55)
[2021-12-12] MEDS ORDERED: cefTRIAXone SODIUM 1 GM VIAL ONE (09:55)
[2021-12-12] MEDS: CEFTRIAXONE 1 GM in DEXTROSE 5%-WATER - 50 ML IVPB SCH (10:45)
[2021-12-12] MEDS: VALSARTAN 160 MG TABLET PO SCH (10:45)
[2021-12-12] MEDS: ENOXAPARIN NA (PORCINE) 40 MG/0.4 ML DISP.SYRIN SQ SCH ×2 (10:45→21:35)
[2021-12-12] MEDS: NYSTATIN POWDER 100,000 UNITS/GM - 15 GM TOPICAL POWDER TP SCH ×2 (11:33→21:37)
[2021-12-12] MEDS: traMADol HCL 50 MG TABLET PO SCH (21:35)
[2021-12-12] MEDS ORDERED: traMADol HCL 50 MG TABLET PO SCH (22:00)
[2021-12-13] MEDS: GABAPENTIN 300 MG CAPSULE PO SCH ×3 (05:26→21:10)
[2021-12-13 06:46] LABS: HEMATOCRIT 29.2 % (32.4-45.2); HEMOGLOBIN 9.5 GM/dL (10.7-15.3); MCH 26.4 pg (25.7-33.7); MCHC 32.4 g/dl (32.0-36.0); MEAN CELL VOLUME 81.5 fl (80-96); PLATELET COUNT 375 10^3/uL (134-434); RBC 3.59 M/mm3 (3.60-5.2); RDW 15.8 % (11.6-15.6); WHITE BLOOD COUNT 8.9 K/mm3 (4.0-10.0)
[2021-12-13] MEDS: VALSARTAN 160 MG TABLET PO SCH (10:04)
[2021-12-13] MEDS: NYSTATIN POWDER 100,000 UNITS/GM - 15 GM TOPICAL POWDER TP SCH ×2 (10:04→21:12)
[2021-12-13] MEDS: ENOXAPARIN NA (PORCINE) 40 MG/0.4 ML DISP.SYRIN SQ SCH ×2 (10:04→21:11)
[2021-12-13] MEDS ORDERED: cefTRIAXone SODIUM 1 GM VIAL ONE ×2 (12:48→12:50)
[2021-12-13] MEDS ORDERED: DEXTROSE 5%-WATER - 50 ML IVPB ONE (12:50)
[2021-12-13] MEDS: CEFTRIAXONE 1 GM in DEXTROSE 5%-WATER - 50 ML IVPB SCH (13:13)
[2021-12-13] MEDS: traMADol HCL 50 MG TABLET PO SCH (21:11)
[2021-12-14] MEDS: GABAPENTIN 300 MG CAPSULE PO SCH ×3 (05:14→22:25)
[2021-12-14 08:36] LABS: BASO % 0.4 % (0-2.0); EOS % 3.1 % (0-4.5); HEMATOCRIT 27.5 % (32.4-45.2); LYMPH % 32.9 % (8-40); MCH 26.8 pg (25.7-33.7); MCHC 32.8 g/dl (32.0-36.0); MEAN CELL VOLUME 81.6 fl (80-96); MONO % 4.3 % (3.8-10.2); NEUT % 59.3 % (42.8-82.8); PLATELET COUNT 343 10^3/uL (134-434); RBC 3.36 M/mm3 (3.60-5.2); RDW 16.2 % (11.6-15.6); WHITE BLOOD COUNT 9.6 K/mm3 (4.0-10.0)
[2021-12-14 08:45] LABS: BLOOD UREA NITROGEN 13.5 mg/dL (7-18)
[2021-12-14 08:48] LABS: CREATININE 0.7 mg/dL (0.55-1.3)
[2021-12-14] MEDS ORDERED: DEXTROSE 5%-WATER - 50 ML IVPB ONE (08:54)
[2021-12-14] MEDS ORDERED: cefTRIAXone SODIUM 1 GM VIAL ONE (08:54)
[2021-12-14] MEDS: CEFTRIAXONE 1 GM in DEXTROSE 5%-WATER - 50 ML IVPB SCH (09:37)
[2021-12-14] MEDS: ENOXAPARIN NA (PORCINE) 40 MG/0.4 ML DISP.SYRIN SQ SCH ×2 (09:39→22:26)
[2021-12-14] MEDS: VALSARTAN 160 MG TABLET PO SCH (09:39)
[2021-12-14] MEDS: NYSTATIN POWDER 100,000 UNITS/GM - 15 GM TOPICAL POWDER TP SCH ×2 (09:41→22:27)
[2021-12-14] MEDS: ACETAMINOPHEN 325 MG TABLET (FP) PO PRN (18:21)
[2021-12-14] MEDS: traMADol HCL 50 MG TABLET PO SCH (22:25)
[2021-12-15] MEDS: GABAPENTIN 300 MG CAPSULE PO SCH ×3 (05:53→22:16)
[2021-12-15] MEDS ORDERED: DEXTROSE 5%-WATER - 50 ML IVPB ONE (11:01)
[2021-12-15] MEDS ORDERED: cefTRIAXone SODIUM 1 GM VIAL ONE (11:01)
[2021-12-15] MEDS: CEFTRIAXONE 1 GM in DEXTROSE 5%-WATER - 50 ML IVPB SCH (11:04)
[2021-12-15] MEDS: ENOXAPARIN NA (PORCINE) 40 MG/0.4 ML DISP.SYRIN SQ SCH ×2 (11:05→22:15)
[2021-12-15] MEDS: VALSARTAN 160 MG TABLET PO SCH (11:06)
[2021-12-15] MEDS: NYSTATIN POWDER 100,000 UNITS/GM - 15 GM TOPICAL POWDER TP SCH ×2 (11:06→22:16)
[2021-12-15 13:14] LABS: INR 1.15 (0.83-1.09); PROTHROMBIN TIME (PATIENT) 13.2 SEC (9.7-13.0)
[2021-12-15 13:17] LABS: ACTIVATED PTT 36.9 SECONDS (25.2-36.5)
[2021-12-15] MEDS: traMADol HCL 50 MG TABLET PO SCH (22:16)
[2021-12-16] MEDS: GABAPENTIN 300 MG CAPSULE PO SCH ×3 (05:52→22:32)
[2021-12-16] MEDS ORDERED: cefTRIAXone SODIUM 1 GM VIAL ONE (08:46)
[2021-12-16] MEDS ORDERED: DEXTROSE 5%-WATER - 50 ML IVPB ONE (08:46)
[2021-12-16 08:53] LABS: BASO % 0.5 % (0-2.0); EOS % 3.3 % (0-4.5); HEMATOCRIT 27.1 % (32.4-45.2); HEMOGLOBIN 8.9 GM/dL (10.7-15.3); LYMPH % 35.9 % (8-40); MCH 26.6 pg (25.7-33.7); MCHC 32.8 g/dl (32.0-36.0); MEAN CELL VOLUME 81.3 fl (80-96); MEAN PLT VOLUME 7.3 fl (7.5-11.1); MONO % 5.5 % (3.8-10.2); NEUT % 54.8 % (42.8-82.8); PLATELET COUNT 342 10^3/uL (134-434); RBC 3.33 M/mm3 (3.60-5.2); RDW 16.1 % (11.6-15.6); WHITE BLOOD COUNT 8.1 K/mm3 (4.0-10.0)
[2021-12-16 09:21] LABS: ALBUMIN 2.6 g/dl (3.4-5.0); BLOOD UREA NITROGEN 12.4 mg/dL (7-18); CALCIUM 8.9 mg/dL (8.5-10.1)
[2021-12-16 09:24] LABS: CREATININE 0.6 mg/dL (0.55-1.3); PHOSPHOROUS 3.3 mg/dL (2.5-4.9)
[2021-12-16 09:26] LABS: BILIRUBIN,TOTAL 0.5 mg/dL (0.2-1); TOT PROT 6.4 g/dl (6.4-8.2)
[2021-12-16] MEDS: VALSARTAN 160 MG TABLET PO SCH (10:06)
[2021-12-16] MEDS: ENOXAPARIN NA (PORCINE) 40 MG/0.4 ML DISP.SYRIN SQ SCH ×2 (10:06→22:32)
[2021-12-16] MEDS: CEFTRIAXONE 1 GM in DEXTROSE 5%-WATER - 50 ML IVPB SCH (10:07)
[2021-12-16] MEDS: NYSTATIN POWDER 100,000 UNITS/GM - 15 GM TOPICAL POWDER TP SCH ×2 (10:07→22:31)
[2021-12-16] MEDS: traMADol HCL 50 MG TABLET PO SCH (22:29)
[2021-12-17] MEDS: GABAPENTIN 300 MG CAPSULE PO SCH ×3 (06:59→22:11)
[2021-12-17 09:28] LABS: BASO % 0.5 % (0-2.0); EOS % 2.9 % (0-4.5); HEMATOCRIT 27.2 % (32.4-45.2); HEMOGLOBIN 8.9 GM/dL (10.7-15.3); LYMPH % 31.2 % (8-40); MCH 26.5 pg (25.7-33.7); MCHC 32.8 g/dl (32.0-36.0); MEAN CELL VOLUME 80.7 fl (80-96); MONO % 4.9 % (3.8-10.2); NEUT % 60.5 % (42.8-82.8); PLATELET COUNT 332 10^3/uL (134-434); RBC 3.37 M/mm3 (3.60-5.2); RDW 16.2 % (11.6-15.6); WHITE BLOOD COUNT 8.1 K/mm3 (4.0-10.0)
[2021-12-17 09:37] LABS: INR 1.15 (0.83-1.09); PROTHROMBIN TIME (PATIENT) 13.2 SEC (9.7-13.0)
[2021-12-17 09:40] LABS: ACTIVATED PTT 35.2 SECONDS (25.2-36.5)
[2021-12-17 09:57] LABS: CALCIUM 9.1 mg/dL (8.5-10.1)
[2021-12-17 09:58] LABS: ALBUMIN 2.7 g/dl (3.4-5.0); BLOOD UREA NITROGEN 12.4 mg/dL (7-18); MAGNESIUM 1.9 mg/dL (1.8-2.4)
[2021-12-17 10:01] LABS: CREATININE 0.6 mg/dL (0.55-1.3); PHOSPHOROUS 3.6 mg/dL (2.5-4.9)
[2021-12-17 10:03] LABS: BILIRUBIN,TOTAL 0.3 mg/dL (0.2-1); TOT PROT 6.5 g/dl (6.4-8.2)
[2021-12-17] MEDS ORDERED: cefTRIAXone SODIUM 1 GM VIAL ONE (10:45)
[2021-12-17] MEDS ORDERED: DEXTROSE 5%-WATER - 50 ML IVPB ONE (10:46)
[2021-12-17] MEDS: ENOXAPARIN NA (PORCINE) 40 MG/0.4 ML DISP.SYRIN SQ SCH (11:57)
[2021-12-17] MEDS: NYSTATIN POWDER 100,000 UNITS/GM - 15 GM TOPICAL POWDER TP SCH ×2 (11:58→22:13)
[2021-12-17] MEDS: CEFTRIAXONE 1 GM in DEXTROSE 5%-WATER - 50 ML IVPB SCH (11:58)
[2021-12-17] MEDS: VALSARTAN 160 MG TABLET PO SCH (12:00)
[2021-12-17] MEDS: ACETAMINOPHEN 325 MG TABLET (FP) PO PRN (17:59)
[2021-12-17] MEDS: traMADol HCL 50 MG TABLET PO SCH (22:11)
[2021-12-18] MEDS: GABAPENTIN 300 MG CAPSULE PO SCH ×3 (05:53→22:22)
[2021-12-18 08:41] LABS: BASO % 0.5 % (0-2.0); EOS % 2.8 % (0-4.5); HEMATOCRIT 27.8 % (32.4-45.2); HEMOGLOBIN 9.1 GM/dL (10.7-15.3); LYMPH % 31.4 % (8-40); MCH 26.4 pg (25.7-33.7); MCHC 32.9 g/dl (32.0-36.0); MEAN CELL VOLUME 80.1 fl (80-96); MEAN PLT VOLUME 7.3 fl (7.5-11.1); MONO % 5.5 % (3.8-10.2); NEUT % 59.8 % (42.8-82.8); PLATELET COUNT 337 10^3/uL (134-434); RBC 3.46 M/mm3 (3.60-5.2); RDW 16.5 % (11.6-15.6); WHITE BLOOD COUNT 7.2 K/mm3 (4.0-10.0)
[2021-12-18 09:00] LABS: CALCIUM 9.2 mg/dL (8.5-10.1)
[2021-12-18 09:01] LABS: ALBUMIN 2.8 g/dl (3.4-5.0); BLOOD UREA NITROGEN 9.6 mg/dL (7-18)
[2021-12-18 09:04] LABS: CREATININE 0.6 mg/dL (0.55-1.3)
[2021-12-18 09:06] LABS: BILIRUBIN,TOTAL 0.3 mg/dL (0.2-1); TOT PROT 6.6 g/dl (6.4-8.2)
[2021-12-18] MEDS: VALSARTAN 160 MG TABLET PO SCH (09:34)
[2021-12-18] MEDS: NYSTATIN POWDER 100,000 UNITS/GM - 15 GM TOPICAL POWDER TP SCH ×2 (09:34→22:23)
[2021-12-18] MEDS: ENOXAPARIN NA (PORCINE) 40 MG/0.4 ML DISP.SYRIN SQ SCH (09:34)
[2021-12-18] MEDS: traMADol HCL 50 MG TABLET PO SCH (22:23)
[2021-12-19] MEDS: GABAPENTIN 300 MG CAPSULE PO SCH ×3 (06:15→21:50)
[2021-12-19] MEDS: ENOXAPARIN NA (PORCINE) 40 MG/0.4 ML DISP.SYRIN SQ SCH (10:37)
[2021-12-19] MEDS: NYSTATIN POWDER 100,000 UNITS/GM - 15 GM TOPICAL POWDER TP SCH ×2 (10:37→21:50)
[2021-12-19] MEDS: VALSARTAN 160 MG TABLET PO SCH (10:37)
[2021-12-20] MEDS: GABAPENTIN 300 MG CAPSULE PO SCH ×3 (06:13→21:08)
[2021-12-20] MEDS: ENOXAPARIN NA (PORCINE) 40 MG/0.4 ML DISP.SYRIN SQ SCH ×2 (11:25→21:08)
[2021-12-20] MEDS: VALSARTAN 160 MG TABLET PO SCH (11:25)
[2021-12-20] MEDS: NYSTATIN POWDER 100,000 UNITS/GM - 15 GM TOPICAL POWDER TP SCH ×2 (11:27→21:08)
[2021-12-21] MEDS: GABAPENTIN 300 MG CAPSULE PO SCH ×3 (07:03→21:31)
[2021-12-21 08:46] LABS: BASO % 0.5 % (0-2.0); HEMATOCRIT 34.7 % (32.4-45.2); HEMOGLOBIN 11.6 GM/dL (10.7-15.3); MCH 27.7 pg (25.7-33.7); MCHC 33.5 g/dl (32.0-36.0); MEAN CELL VOLUME 82.5 fl (80-96); MEAN PLT VOLUME 7.7 fl (7.5-11.1); NEUT % 62.5 % (42.8-82.8); PLATELET COUNT 293 10^3/uL (134-434); RDW 16.4 % (11.6-15.6); WHITE BLOOD COUNT 7.2 K/mm3 (4.0-10.0)
[2021-12-21 08:47] LABS: INR 1.13 (0.83-1.09)
[2021-12-21 08:50] LABS: ACTIVATED PTT 34.5 SECONDS (25.2-36.5)
[2021-12-21 09:16] LABS: ALBUMIN 2.8 g/dl (3.4-5.0); BLOOD UREA NITROGEN 11.7 mg/dL (7-18); CALCIUM 9.3 mg/dL (8.5-10.1)
[2021-12-21 09:19] LABS: CREATININE 0.6 mg/dL (0.55-1.3)
[2021-12-21 09:21] LABS: BILIRUBIN,TOTAL 0.7 mg/dL (0.2-1); TOT PROT 6.4 g/dl (6.4-8.2)
[2021-12-21] MEDS: NYSTATIN POWDER 100,000 UNITS/GM - 15 GM TOPICAL POWDER TP SCH ×2 (10:16→21:39)
[2021-12-21] MEDS: VALSARTAN 160 MG TABLET PO SCH (10:16)
[2021-12-21] MEDS ORDERED: PROPOFOL 20 ML ONE ×2 (13:19)
[2021-12-21] MEDS ORDERED: LIDOCAINE HCL/PF 2% SDV 5ML VIAL ONE (13:20)
[2021-12-21] MEDS ORDERED: ONDANSETRON 4 MG/2 ML VIAL ONE ×2 (13:20→15:54)
[2021-12-21] MEDS ORDERED: ROCURONIUM BROMIDE 50 MG/5 ML SYRINGE ONE ×3 (13:21→14:49)
[2021-12-21] MEDS ORDERED: THROMBIN (BOVINE) 20,000 UNIT VIAL TP ONE (13:33)
[2021-12-21] MEDS ORDERED: ceFAZolin SODIUM 1 GM VIAL IVPB ONE (14:14)
[2021-12-21] MEDS ORDERED: VANCOMYCIN 1,000 MG VIAL (RESTRICTED TO ID ONLY) ONE (15:32)
[2021-12-21] MEDS ORDERED: BUPIVACAINE LIPOSOME/PF (EXPAREL) 266 MG/20 ML VIAL ONE (15:38)
[2021-12-21] MEDS ORDERED: BUPIVACAINE HCL/PF 0.5% (5MG/ML) 10 ML VIAL ONE (15:38)
[2021-12-21] MEDS ORDERED: ACETAMINOPHEN INJECTION 100 ML IVPB ONE (15:41)
[2021-12-21] MEDS ORDERED: BUPIVACAINE LIPOSOME/PF (EXPAREL) 266 MG/20 ML VIAL IJ ONE (15:44)
[2021-12-21] MEDS ORDERED: BUPIVACAINE HCL/PF 0.5% (5MG/ML) 10 ML VIAL IJ ONE (15:44)
[2021-12-21] MEDS ORDERED: SUGAMMADEX SODIUM 200 MG/2 ML VIAL ONE ×2 (15:58→16:40)
[2021-12-21] MEDS ORDERED: GLYCOPYRROLATE 0.2 MG/1 ML VIAL ONE (16:00)
[2021-12-21] MEDS ORDERED: NEOSTIGMINE METHYLSULFATE 0.5 MG/1 ML - 10 ML MDV ONE (16:00)
[2021-12-21] MEDS ORDERED: HYDROmorphone HCl 2 MG/ML VIAL ONE (16:43)
[2021-12-21] MEDS ORDERED: HYDROmorphone HCl 2 MG/ML VIAL IVPUSH ONE (16:45)
[2021-12-21] MEDS ORDERED: ONDANSETRON 4 MG/2 ML VIAL IVPUSH PRN (16:45)
[2021-12-21] MEDS ORDERED: FENTANYL CITRATE/PF 50 MCG/ML VIAL ONE ×4 (16:58→17:22)
[2021-12-21] MEDS ORDERED: HYDROmorphone *PCA* 10MG/50ML DISP.SYRIN ONE (17:23)
[2021-12-21] MEDS: HYDROmorphone *PCA* 10MG/50ML DISP.SYRIN PCA SCH (18:30)
[2021-12-21] MEDS: ACETAMINOPHEN 325 MG TABLET (FP) PO PRN (21:32)
[2021-12-22] MEDS: GABAPENTIN 300 MG CAPSULE PO SCH ×3 (05:49→21:47)
[2021-12-22 10:53] LABS: BASO % 0.3 % (0-2.0); EOS % 1.6 % (0-4.5); HEMATOCRIT 31.6 % (32.4-45.2); HEMOGLOBIN 10.5 GM/dL (10.7-15.3); LYMPH % 17.4 % (8-40); MCH 27.7 pg (25.7-33.7); MCHC 33.1 g/dl (32.0-36.0); MEAN CELL VOLUME 83.7 fl (80-96); MEAN PLT VOLUME 8.2 fl (7.5-11.1); MONO % 3.8 % (3.8-10.2); NEUT % 76.9 % (42.8-82.8); PLATELET COUNT 309 10^3/uL (134-434); RBC 3.78 M/mm3 (3.60-5.2); RDW 16.1 % (11.6-15.6); WHITE BLOOD COUNT 12.2 K/mm3 (4.0-10.0)
[2021-12-22] MEDS: ENOXAPARIN NA (PORCINE) 40 MG/0.4 ML DISP.SYRIN SQ SCH ×2 (10:53→21:47)
[2021-12-22] MEDS: NYSTATIN POWDER 100,000 UNITS/GM - 15 GM TOPICAL POWDER TP SCH ×3 (10:55→21:47)
[2021-12-22] MEDS: VALSARTAN 160 MG TABLET PO SCH (11:02)
[2021-12-22] MEDS: SODIUM CHLORIDE 1,000 ML IV SCH (11:06)
[2021-12-22 11:32] LABS: ALBUMIN 2.8 g/dl (3.4-5.0); CALCIUM 8.7 mg/dL (8.5-10.1)
[2021-12-22 11:33] LABS: BLOOD UREA NITROGEN 15.5 mg/dL (7-18); MAGNESIUM 1.7 mg/dL (1.8-2.4)
[2021-12-22 11:35] LABS: CREATININE 1.1 mg/dL (0.55-1.3); PHOSPHOROUS 4.3 mg/dL (2.5-4.9)
[2021-12-22 11:37] LABS: BILIRUBIN,TOTAL 0.8 mg/dL (0.2-1); TOT PROT 6.5 g/dl (6.4-8.2)
[2021-12-22] MEDS: ACETAMINOPHEN 325 MG TABLET (FP) PO PRN (14:52)
[2021-12-22] MEDS: HYDROmorphone *PCA* 10MG/50ML DISP.SYRIN PCA SCH ×2 (17:17→20:30)
[2021-12-23] MEDS: SODIUM CHLORIDE 1,000 ML IV SCH (00:58)
[2021-12-23] MEDS: GABAPENTIN 300 MG CAPSULE PO SCH ×3 (06:25→21:27)
[2021-12-23] MEDS ORDERED: MAGNESIUM 2GM/50ML STERILE WATER IVPB IVPB ONE (07:57)
[2021-12-23] MEDS ORDERED: SODIUM CHLORIDE 1,000 ML IV SCH ×3 (08:44→18:11)
[2021-12-23] MEDS: VALSARTAN 160 MG TABLET PO SCH ×2 (09:10→09:14)
[2021-12-23] MEDS: ENOXAPARIN NA (PORCINE) 40 MG/0.4 ML DISP.SYRIN SQ SCH ×2 (09:10→21:27)
[2021-12-23] MEDS: NYSTATIN POWDER 100,000 UNITS/GM - 15 GM TOPICAL POWDER TP SCH ×2 (09:14→21:34)
[2021-12-23 11:23] LABS: BASO % 0.3 % (0-2.0); EOS % 1.9 % (0-4.5); HEMATOCRIT 27.8 % (32.4-45.2); HEMOGLOBIN 9.2 GM/dL (10.7-15.3); MEAN CELL VOLUME 84.8 fl (80-96); MEAN PLT VOLUME 8.6 fl (7.5-11.1); MONO % 5.8 % (3.8-10.2); PLATELET COUNT 260 10^3/uL (134-434); RBC 3.27 M/mm3 (3.60-5.2); RDW 16.4 % (11.6-15.6); WHITE BLOOD COUNT 10.2 K/mm3 (4.0-10.0)
[2021-12-23] MEDS ORDERED: oxyCODONE HCL 5 MG TABLET PO PRN ×2 (11:33→11:38)
[2021-12-23] MEDS ORDERED: ACETAMINOPHEN 325 MG TABLET (FP) PO PRN (11:36)
[2021-12-23] MEDS ORDERED: NALOXONE HCL 0.4 MG/ML VIAL IVPUSH PRN (11:36)
[2021-12-23 11:39] LABS: ALBUMIN 2.5 g/dl (3.4-5.0); BLOOD UREA NITROGEN 15.2 mg/dL (7-18)
[2021-12-23 11:40] LABS: CALCIUM 8.4 mg/dL (8.5-10.1)
[2021-12-23 11:42] LABS: CREATININE 0.8 mg/dL (0.55-1.3)
[2021-12-23 11:45] LABS: BILIRUBIN,TOTAL 0.4 mg/dL (0.2-1); TOT PROT 5.9 g/dl (6.4-8.2)
[2021-12-24] MEDS: GABAPENTIN 300 MG CAPSULE PO SCH ×3 (05:47→21:20)
[2021-12-24 10:50] LABS: BASO % 0.4 % (0-2.0); EOS % 2.6 % (0-4.5); HEMATOCRIT 26.9 % (32.4-45.2); HEMOGLOBIN 8.9 GM/dL (10.7-15.3); LYMPH % 22.2 % (8-40); MCH 28.1 pg (25.7-33.7); MCHC 33.2 g/dl (32.0-36.0); MEAN CELL VOLUME 84.5 fl (80-96); MEAN PLT VOLUME 8.6 fl (7.5-11.1); MONO % 5.8 % (3.8-10.2); PLATELET COUNT 266 10^3/uL (134-434); RBC 3.18 M/mm3 (3.60-5.2); RDW 16.7 % (11.6-15.6); WHITE BLOOD COUNT 8.4 K/mm3 (4.0-10.0)
[2021-12-24 10:54] LABS: CALCIUM 8.5 mg/dL (8.5-10.1)
[2021-12-24 10:55] LABS: ALBUMIN 2.2 g/dl (3.4-5.0); BLOOD UREA NITROGEN 9.1 mg/dL (7-18)
[2021-12-24 10:57] LABS: CREATININE 0.6 mg/dL (0.55-1.3)
[2021-12-24 10:59] LABS: BILIRUBIN,TOTAL 0.6 mg/dL (0.2-1); TOT PROT 5.6 g/dl (6.4-8.2)
[2021-12-24] MEDS: VALSARTAN 160 MG TABLET PO SCH (10:59)
[2021-12-24] MEDS: ENOXAPARIN NA (PORCINE) 40 MG/0.4 ML DISP.SYRIN SQ SCH ×2 (10:59→21:20)
[2021-12-24] MEDS: NYSTATIN POWDER 100,000 UNITS/GM - 15 GM TOPICAL POWDER TP SCH ×2 (11:01→21:26)
[2021-12-24 20:12] VITALS: BMI 52.5
[2021-12-25] MEDS: GABAPENTIN 300 MG CAPSULE PO SCH ×3 (05:59→22:01)
[2021-12-25] MEDS: ENOXAPARIN NA (PORCINE) 40 MG/0.4 ML DISP.SYRIN SQ SCH ×2 (10:28→22:01)
[2021-12-25] MEDS: VALSARTAN 160 MG TABLET PO SCH (10:29)
[2021-12-25] MEDS: NYSTATIN POWDER 100,000 UNITS/GM - 15 GM TOPICAL POWDER TP SCH ×2 (10:31→22:02)
[2021-12-25 10:50] LABS: BASO % 0.4 % (0-2.0); EOS % 2.8 % (0-4.5); HEMATOCRIT 26.4 % (32.4-45.2); HEMOGLOBIN 8.6 GM/dL (10.7-15.3); MCH 27.4 pg (25.7-33.7); MCHC 32.6 g/dl (32.0-36.0); MEAN PLT VOLUME 7.7 fl (7.5-11.1); MONO % 7.2 % (3.8-10.2); NEUT % 68.6 % (42.8-82.8); PLATELET COUNT 308 10^3/uL (134-434); RBC 3.14 M/mm3 (3.60-5.2); RDW 16.5 % (11.6-15.6); WHITE BLOOD COUNT 8.1 K/mm3 (4.0-10.0)
[2021-12-25 11:02] LABS: BLOOD UREA NITROGEN 7.8 mg/dL (7-18); CALCIUM 8.6 mg/dL (8.5-10.1)
[2021-12-25 11:03] LABS: MAGNESIUM 1.8 mg/dL (1.8-2.4)
[2021-12-25 11:05] LABS: PHOSPHOROUS 2.8 mg/dL (2.5-4.9)
[2021-12-25 11:06] LABS: CREATININE 0.5 mg/dL (0.55-1.3)
[2021-12-26] MEDS: GABAPENTIN 300 MG CAPSULE PO SCH ×3 (06:10→22:23)
[2021-12-26] MEDS: ENOXAPARIN NA (PORCINE) 40 MG/0.4 ML DISP.SYRIN SQ SCH ×2 (09:48→22:23)
[2021-12-26] MEDS: VALSARTAN 160 MG TABLET PO SCH (09:49)
[2021-12-26] MEDS: NYSTATIN POWDER 100,000 UNITS/GM - 15 GM TOPICAL POWDER TP SCH ×2 (09:49→22:23)
[2021-12-26] MEDS ORDERED: MAGNESIUM OXIDE 400 MG TABLET (FP) PO ONE (12:41)
[2021-12-26] MEDS ORDERED: MAGNESIUM OXIDE 400 MG TABLET (FP) PO SCH (12:45)
[2021-12-26] MEDS ORDERED: MAGNESIUM 2GM/50ML STERILE WATER IVPB IVPB ONE (12:45)
[2021-12-26] MEDS: METHYL SALICYLATE/MENTHOL OINT 30 GM TUBE TP SCH ×2 (13:15→22:22)
[2021-12-26] MEDS: oxyCODONE HCL 5 MG TABLET PO PRN ×2 (13:15→22:23)
[2021-12-26] MEDS: ACETAMINOPHEN 325 MG TABLET (FP) PO PRN (20:07)
[2021-12-26] MEDS: POLYETHYLENE GLYCOL (HEALTHYLAX) 3350 17 GM PACKET PO SCH (22:22)
[2021-12-26] MEDS: DOCUSATE SODIUM 100 MG CAPSULE (FP) PO SCH (22:22)
[2021-12-27] MEDS: oxyCODONE HCL 5 MG TABLET PO PRN ×3 (05:47→20:28)
[2021-12-27] MEDS: GABAPENTIN 300 MG CAPSULE PO SCH ×3 (05:47→21:06)
[2021-12-27] MEDS: NYSTATIN POWDER 100,000 UNITS/GM - 15 GM TOPICAL POWDER TP SCH ×2 (09:46→21:06)
[2021-12-27] MEDS: ENOXAPARIN NA (PORCINE) 40 MG/0.4 ML DISP.SYRIN SQ SCH ×2 (09:47→21:05)
[2021-12-27] MEDS: VALSARTAN 160 MG TABLET PO SCH (09:48)
[2021-12-27] MEDS: METHYL SALICYLATE/MENTHOL OINT 30 GM TUBE TP SCH ×2 (09:49→21:07)
[2021-12-27] MEDS: POLYETHYLENE GLYCOL (HEALTHYLAX) 3350 17 GM PACKET PO SCH ×2 (09:50→21:06)
[2021-12-27] MEDS: ACETAMINOPHEN 325 MG TABLET (FP) PO PRN (17:53)
[2021-12-27] MEDS: DOCUSATE SODIUM 100 MG CAPSULE (FP) PO SCH (21:05)
[2021-12-28] MEDS: oxyCODONE HCL 5 MG TABLET PO PRN ×2 (06:11→18:01)
[2021-12-28] MEDS: GABAPENTIN 300 MG CAPSULE PO SCH ×3 (06:13→22:19)
[2021-12-28 08:48] LABS: BASO % 0.5 % (0-2.0); EOS % 4.7 % (0-4.5); HEMATOCRIT 25.9 % (32.4-45.2); HEMOGLOBIN 8.8 GM/dL (10.7-15.3); LYMPH % 30.2 % (8-40); MCH 28.3 pg (25.7-33.7); MCHC 34.1 g/dl (32.0-36.0); MEAN PLT VOLUME 7.6 fl (7.5-11.1); MONO % 7.2 % (3.8-10.2); NEUT % 57.4 % (42.8-82.8); PLATELET COUNT 372 10^3/uL (134-434); RBC 3.11 M/mm3 (3.60-5.2); RDW 15.9 % (11.6-15.6); WHITE BLOOD COUNT 5.9 K/mm3 (4.0-10.0)
[2021-12-28 09:08] LABS: CALCIUM 8.8 mg/dL (8.5-10.1)
[2021-12-28 09:09] LABS: BLOOD UREA NITROGEN 8.2 mg/dL (7-18)
[2021-12-28 09:12] LABS: CREATININE 0.5 mg/dL (0.55-1.3)
[2021-12-28] MEDS: ENOXAPARIN NA (PORCINE) 40 MG/0.4 ML DISP.SYRIN SQ SCH ×2 (09:16→22:18)
[2021-12-28] MEDS: METHYL SALICYLATE/MENTHOL OINT 30 GM TUBE TP SCH ×2 (09:16→22:20)
[2021-12-28] MEDS: POLYETHYLENE GLYCOL (HEALTHYLAX) 3350 17 GM PACKET PO SCH ×3 (09:16→22:43)
[2021-12-28] MEDS: VALSARTAN 160 MG TABLET PO SCH (09:16)
[2021-12-28] MEDS: NYSTATIN POWDER 100,000 UNITS/GM - 15 GM TOPICAL POWDER TP SCH ×2 (09:16→22:19)
[2021-12-28] MEDS: COLLAGENASE CLOSTRIDIUM HIST. 30 GRAMS TUBE TP SCH (13:47)
[2021-12-28] MEDS: DOCUSATE SODIUM 100 MG CAPSULE (FP) PO SCH (22:19)
[2021-12-29] MEDS: oxyCODONE HCL 5 MG TABLET PO PRN ×3 (06:07→21:54)
[2021-12-29] MEDS: GABAPENTIN 300 MG CAPSULE PO SCH ×3 (06:07→21:45)
[2021-12-29 08:17] LABS: HEMOGLOBIN 8.4 GM/dL (10.7-15.3); MCH 27.8 pg (25.7-33.7); MCHC 33.5 g/dl (32.0-36.0); MEAN CELL VOLUME 83.1 fl (80-96); MEAN PLT VOLUME 7.6 fl (7.5-11.1); PLATELET COUNT 375 10^3/uL (134-434); RBC 3.01 M/mm3 (3.60-5.2); RDW 16.1 % (11.6-15.6); WHITE BLOOD COUNT 5.8 K/mm3 (4.0-10.0)
[2021-12-29 08:36] LABS: CALCIUM 8.6 mg/dL (8.5-10.1)
[2021-12-29 08:40] LABS: CREATININE 0.5 mg/dL (0.55-1.3)
[2021-12-29] MEDS: ACETAMINOPHEN 325 MG TABLET (FP) PO PRN (08:53)
[2021-12-29] MEDS: NYSTATIN POWDER 100,000 UNITS/GM - 15 GM TOPICAL POWDER TP SCH ×2 (09:45→21:51)
[2021-12-29] MEDS: ENOXAPARIN NA (PORCINE) 40 MG/0.4 ML DISP.SYRIN SQ SCH ×2 (09:46→21:44)
[2021-12-29] MEDS: METHYL SALICYLATE/MENTHOL OINT 30 GM TUBE TP SCH ×2 (09:46→21:44)
[2021-12-29] MEDS: POLYETHYLENE GLYCOL (HEALTHYLAX) 3350 17 GM PACKET PO SCH ×2 (09:48→21:45)
[2021-12-29] MEDS: VALSARTAN 160 MG TABLET PO SCH (09:57)
[2021-12-29] MEDS: COLLAGENASE CLOSTRIDIUM HIST. 30 GRAMS TUBE TP SCH (10:56)
[2021-12-29] MEDS ORDERED: FUROSEMIDE 40 MG TABLET (FP) PO ONE (14:00)
[2021-12-29] MEDS: DOCUSATE SODIUM 100 MG CAPSULE (FP) PO SCH (21:44)
[2021-12-30] MEDS: GABAPENTIN 300 MG CAPSULE PO SCH ×3 (05:25→21:08)
[2021-12-30] MEDS: oxyCODONE HCL 5 MG TABLET PO PRN ×2 (05:25→21:08)
[2021-12-30] MEDS: METHYL SALICYLATE/MENTHOL OINT 30 GM TUBE TP SCH ×2 (10:19→21:10)
[2021-12-30] MEDS: VALSARTAN 160 MG TABLET PO SCH (10:20)
[2021-12-30] MEDS: POLYETHYLENE GLYCOL (HEALTHYLAX) 3350 17 GM PACKET PO SCH ×2 (10:20→21:08)
[2021-12-30] MEDS: COLLAGENASE CLOSTRIDIUM HIST. 30 GRAMS TUBE TP SCH (10:21)
[2021-12-30] MEDS: ENOXAPARIN NA (PORCINE) 40 MG/0.4 ML DISP.SYRIN SQ SCH ×2 (10:21→21:08)
[2021-12-30] MEDS: FUROSEMIDE 20 MG TABLET (FP) PO SCH (10:21)
[2021-12-30] MEDS: NYSTATIN POWDER 100,000 UNITS/GM - 15 GM TOPICAL POWDER TP SCH ×2 (10:21→21:10)
[2021-12-30] MEDS: ACETAMINOPHEN 325 MG TABLET (FP) PO PRN (16:44)
[2021-12-30] MEDS: DOCUSATE SODIUM 100 MG CAPSULE (FP) PO SCH (21:08)
[2021-12-31] MEDS: oxyCODONE HCL 5 MG TABLET PO PRN (03:46)
[2021-12-31] MEDS: GABAPENTIN 300 MG CAPSULE PO SCH (05:22)
[2021-12-31 08:57] LABS: HEMATOCRIT 25.7 % (32.4-45.2); HEMOGLOBIN 8.6 GM/dL (10.7-15.3); MCH 27.9 pg (25.7-33.7); MCHC 33.4 g/dl (32.0-36.0); MEAN CELL VOLUME 83.7 fl (80-96); MEAN PLT VOLUME 6.9 fl (7.5-11.1); PLATELET COUNT 436 10^3/uL (134-434); RBC 3.07 M/mm3 (3.60-5.2); RDW 15.9 % (11.6-15.6); WHITE BLOOD COUNT 7.7 K/mm3 (4.0-10.0)
[2021-12-31 09:12] LABS: ALBUMIN 2.4 g/dl (3.4-5.0); BLOOD UREA NITROGEN 7.8 mg/dL (7-18); CALCIUM 8.8 mg/dL (8.5-10.1)
[2021-12-31 09:15] LABS: CREATININE 0.5 mg/dL (0.55-1.3)
[2021-12-31 09:17] LABS: BILIRUBIN,TOTAL 0.4 mg/dL (0.2-1); TOT PROT 6.2 g/dl (6.4-8.2)
[2021-12-31] MEDS: POLYETHYLENE GLYCOL (HEALTHYLAX) 3350 17 GM PACKET PO SCH (09:47)
[2021-12-31] MEDS: VALSARTAN 160 MG TABLET PO SCH (09:47)
[2021-12-31] MEDS: FUROSEMIDE 20 MG TABLET (FP) PO SCH (09:47)
[2021-12-31] MEDS: METHYL SALICYLATE/MENTHOL OINT 30 GM TUBE TP SCH (09:48)
[2021-12-31] MEDS: ENOXAPARIN NA (PORCINE) 40 MG/0.4 ML DISP.SYRIN SQ SCH (09:48)
[2021-12-31] MEDS: NYSTATIN POWDER 100,000 UNITS/GM - 15 GM TOPICAL POWDER TP SCH (09:48)
[2021-12-31] MEDS: COLLAGENASE CLOSTRIDIUM HIST. 30 GRAMS TUBE TP SCH (09:48)
[2021-12-31 09:54] VITALS: BP 128/80; PULSE 97; TEMP 98
== END 2021-12-31 11:00 | DRG 519 ==
LOC: JER 20:51 → JERBED 23:56 → J4W 12-11 23:36 → J7W 12-14 06:08 → OBSVTOIN 12-14 10:16 → JERBED 12-25 03:50 → J7W 12-25 03:52
PROVIDERS: ADMIT Internal Medicine; ATTEND Internal Medicine
PROC: 00NY0ZZ Release Lumbar Spinal Cord, Open Approach (ICD-10-PCS; principal; 2021-12-21 10:45)
DX: M48.07 Spinal stenosis, lumbosacral region (principal); Z68.43 Body mass index [BMI] 50.0-59.9, adult; N39.0 Urinary tract infection, site not specified; I10 Essential (primary) hypertension; D64.9 Anemia, unspecified; R42 Dizziness and giddiness; R55 Syncope and collapse; E66.01 Morbid (severe) obesity due to excess calories; M21.371 Foot drop, right foot; M50.223 Other cervical disc displacement at C6-C7 level; E88.09 Other disorders of plasma-protein metabolism, not elsewhere classified; R32 Unspecified urinary incontinence; L89.152 Pressure ulcer of sacral region, stage 2; L89.312 Pressure ulcer of right buttock, stage 2
CPT/HCPCS: 36415; 36430; 70450-TC; 70551-TC; 71045-TC-FY; 72125-TC; 72141-TC; 72158-TC; 72170-TC-FY; 73552-TC-RT-FY; 73560-TC-LT-FY; 73562-TC-RT-FY; 73700-TC-RT; 76000-TC-FY; 80048; 80053; 81003; 82550; 82607; 82728; 83550; 83735; 84100; 84443; 84484; 85025; 85027; 85045; 85610; 85730; 86850; 86870; 86900; 86901; 86902; 86922; 87086; 87186; 93005; 93010; 93306-TC; 93880-TC; 94010; 94760; 97116-GP; 97162-GP; 99285-25; C9803-CS; G0378; P9058; U0003; U0005

== ENCOUNTER 2022-01-11 18:46 | Inpatient (IN) | payer OTHER ==
[2022-01-11] MEDS ORDERED: VANCOMYCIN 1 GM in D5W (PRE-DOCKED) 1,000 MG/250 ML IVPB ONE (20:00)
[2022-01-11] MEDS ORDERED: PIPERACILLIN/TAZOB 3.375 GM 3.375 GM in DEXTROSE 5%-WATER - 50 ML IVPB ONE (20:00)
[2022-01-11 21:28] LABS: BASO % 0.4 % (0-2.0); EOS % 1.9 % (0-4.5); HEMATOCRIT 30.1 % (32.4-45.2); HEMOGLOBIN 9.9 GM/dL (10.7-15.3); LYMPH % 21.3 % (8-40); MCH 26.9 pg (25.7-33.7); MEAN CELL VOLUME 81.5 fl (80-96); MONO % 5.1 % (3.8-10.2); NEUT % 71.3 % (42.8-82.8); PLATELET COUNT 549 10^3/uL (134-434); RBC 3.69 M/mm3 (3.60-5.2); RDW 15.2 % (11.6-15.6)
[2022-01-11 21:36] LABS: CHLORIDE 96 mmol/L (98-107); SODIUM 133 mmol/L (136-145)
[2022-01-11 21:38] LABS: ALBUMIN 2.8 g/dl (3.4-5.0); ANION GAP 6 MMOL/L (8-16); BLOOD UREA NITROGEN 9.6 mg/dL (7-18); CO2 30 mmol/L (21-32)
[2022-01-11 21:40] LABS: GLUCOSE,RANDOM 104 mg/dL (74-106); INR 1.09 (0.83-1.09); PROTHROMBIN TIME (PATIENT) 12.6 SEC (9.7-13.0)
[2022-01-11 21:42] LABS: CREATININE 0.6 mg/dL (0.55-1.3); SGOT/AST 17 U/L (15-37); SGPT/ALT 16 U/L (13-61)
[2022-01-11 21:43] LABS: ACTIVATED PTT 29.2 SECONDS (25.2-36.5); BILIRUBIN,TOTAL 0.3 mg/dL (0.2-1)
[2022-01-11 21:44] LABS: ALK PHOS 120 U/L (45-117)
[2022-01-12] MEDS ORDERED: DEXTROSE 5%-NORMAL SALINE 1,000 ML IV SCH
[2022-01-12 07:39] LABS: BASO % 0.4 % (0-2.0); EOS % 2.5 % (0-4.5); HEMATOCRIT 26.5 % (32.4-45.2); LYMPH % 23.6 % (8-40); MCH 27.5 pg (25.7-33.7); MCHC 33.9 g/dl (32.0-36.0); MEAN CELL VOLUME 81.1 fl (80-96); MEAN PLT VOLUME 7.1 fl (7.5-11.1); MONO % 5.7 % (3.8-10.2); NEUT % 67.8 % (42.8-82.8); PLATELET COUNT 476 10^3/uL (134-434); RBC 3.27 M/mm3 (3.60-5.2); RDW 15.3 % (11.6-15.6); WHITE BLOOD COUNT 7.9 K/mm3 (4.0-10.0)
[2022-01-12 08:00] LABS: CALCIUM 8.6 mg/dL (8.5-10.1); MAGNESIUM 1.8 mg/dL (1.8-2.4)
[2022-01-12 08:01] LABS: BLOOD UREA NITROGEN 7.7 mg/dL (7-18)
[2022-01-12 08:04] LABS: CREATININE 0.5 mg/dL (0.55-1.3)
[2022-01-12] MEDS ORDERED: ACETAMINOPHEN 325 MG TABLET (FP) PO PRN (10:23)
[2022-01-12] MEDS ORDERED: oxyCODONE HCL 5 MG TABLET PO PRN (10:23)
[2022-01-12] MEDS ORDERED: oxyCODONE HCL 5 MG TABLET ONE (12:30)
[2022-01-12] MEDS ORDERED: GABAPENTIN 100 MG CAPSULE PO SCH (14:00)
[2022-01-12 15:49] VITALS: BMI 48.6
[2022-01-12] MEDS ORDERED: ONDANSETRON 4 MG/2 ML VIAL IVPUSH PRN ×4 (16:12→19:55)
[2022-01-12] MEDS ORDERED: LACTATED RINGERS SOLUTION 1,000 ML IV SCH ×3 (16:15→19:55)
[2022-01-12] MEDS ORDERED: PROPOFOL 20 ML ONE ×3 (16:25)
[2022-01-12] MEDS ORDERED: ROCURONIUM BROMIDE 50 MG/5 ML SYRINGE ONE (16:26)
[2022-01-12] MEDS ORDERED: SUCCINYLCHOLINE CHLORIDE 200 MG/10 ML SYRINGE ONE (16:26)
[2022-01-12] MEDS ORDERED: PHENYLEPHRINE HCL 10 MG/1 ML SINGLE DOSE VIAL ONE (16:28)
[2022-01-12] MEDS ORDERED: LIDOCAINE HCL/PF 2% SDV 5ML VIAL ONE (16:28)
[2022-01-12] MEDS ORDERED: NEOSTIGMINE METHYLSULFATE 0.5 MG/1 ML - 10 ML MDV ONE (17:14)
[2022-01-12] MEDS ORDERED: ONDANSETRON 4 MG/2 ML VIAL ONE (17:15)
[2022-01-12] MEDS ORDERED: DEXAMETHASONE SOD PHOSPHATE 4 MG/1 ML VIAL ONE (17:15)
[2022-01-12] MEDS ORDERED: VANCOMYCIN 1,000 MG VIAL (RESTRICTED TO ID ONLY) ONE (17:17)
[2022-01-12] MEDS ORDERED: VANCOMYCIN 1,000 MG VIAL (RESTRICTED TO ID ONLY) IVPB ONE (17:20)
[2022-01-12] MEDS ORDERED: ceFAZolin SODIUM 1 GM VIAL ONE (17:34)
[2022-01-12] MEDS ORDERED: ceFAZolin SODIUM 1 GM VIAL IVPB ONE (17:44)
[2022-01-12] MEDS: DEXTROSE 5%-NORMAL SALINE 1,000 ML IV SCH (20:00)
[2022-01-12] MEDS: DOCUSATE SODIUM 100 MG CAPSULE (FP) PO SCH (21:41)
[2022-01-12] MEDS: GABAPENTIN 100 MG CAPSULE PO SCH (21:41)
[2022-01-12] MEDS: ENOXAPARIN NA (PORCINE) 40 MG/0.4 ML DISP.SYRIN SQ SCH (21:41)
[2022-01-12] MEDS: oxyCODONE HCL 5 MG TABLET PO PRN (21:42)
[2022-01-12] MEDS ORDERED: DOCUSATE SODIUM 100 MG CAPSULE (FP) PO SCH (22:00)
[2022-01-12] MEDS ORDERED: ENOXAPARIN NA (PORCINE) 40 MG/0.4 ML DISP.SYRIN SQ SCH (22:00)
[2022-01-13] MEDS ORDERED: PIPERACILLIN/TAZOBACTAM 4.5 GM VIAL IVPB ONE ×2 (01:13→09:03)
[2022-01-13] MEDS: PIPERACILLIN/TAZOB 4.5 GM 4.5 GM in DEXTROSE 5%-WATER 100 ML IVPB SCH ×3 (01:19→18:52)
[2022-01-13] MEDS ORDERED: PIPERACILLIN/TAZOB 4.5 GM 4.5 GM in DEXTROSE 5%-WATER 100 ML IVPB SCH (02:00)
[2022-01-13] MEDS: GABAPENTIN 100 MG CAPSULE PO SCH ×3 (06:13→21:29)
[2022-01-13] MEDS: DEXTROSE 5%-NORMAL SALINE 1,000 ML IV SCH ×2 (06:44→20:27)
[2022-01-13] MEDS: oxyCODONE HCL 5 MG TABLET PO PRN ×3 (08:51→20:33)
[2022-01-13] MEDS ORDERED: DEXTROSE 5%-WATER 100 ML IVPB ONE (09:03)
[2022-01-13] MEDS: ENOXAPARIN NA (PORCINE) 40 MG/0.4 ML DISP.SYRIN SQ SCH ×2 (09:11→21:30)
[2022-01-13] MEDS: VALSARTAN 160 MG TABLET PO SCH (09:11)
[2022-01-13] MEDS ORDERED: VALSARTAN 160 MG TABLET PO SCH (10:00)
[2022-01-13] MEDS ORDERED: VANCOMYCIN 1,000 MG in DEXTROSE 5%-WATER - 250 ML IVPB SCH (10:00)
[2022-01-13] MEDS: VANCOMYCIN 1 GRAM (PRE-DOCKED) 1,000 MG/250 ML BAG IVPB SCH ×2 (10:40→21:32)
[2022-01-13 12:02] LABS: HEMATOCRIT 22.4 % (32.4-45.2); HEMOGLOBIN 7.3 GM/dL (10.7-15.3); MCH 26.3 pg (25.7-33.7); MCHC 32.6 g/dl (32.0-36.0); MEAN CELL VOLUME 80.6 fl (80-96); MEAN PLT VOLUME 7.1 fl (7.5-11.1); PLATELET COUNT 434 10^3/uL (134-434); RBC 2.78 M/mm3 (3.60-5.2); RDW 15.8 % (11.6-15.6); WHITE BLOOD COUNT 11.6 K/mm3 (4.0-10.0)
[2022-01-13 12:37] LABS: CREATININE 0.6 mg/dL (0.55-1.3)
[2022-01-13 12:38] LABS: CALCIUM 8.5 mg/dL (8.5-10.1)
[2022-01-13] MEDS ORDERED: FUROSEMIDE 40 MG/4 ML INJECTABLE VIAL IVPUSH ONE ×2 (15:33→21:00)
[2022-01-13] MEDS: DOCUSATE SODIUM 100 MG CAPSULE (FP) PO SCH (21:29)
[2022-01-13] MEDS: ASCORBIC ACID 250 MG TABLET (FP) PO SCH ×2 (22:45→23:30)
[2022-01-14] MEDS ORDERED: DEXTROSE 5%-WATER 100 ML IVPB ONE ×3 (00:37→17:25)
[2022-01-14] MEDS ORDERED: PIPERACILLIN/TAZOBACTAM 4.5 GM VIAL IVPB ONE ×3 (00:37→17:25)
[2022-01-14] MEDS: PIPERACILLIN/TAZOB 4.5 GM 4.5 GM in DEXTROSE 5%-WATER 100 ML IVPB SCH ×3 (01:00→18:14)
[2022-01-14] MEDS: GABAPENTIN 100 MG CAPSULE PO SCH ×3 (05:58→21:49)
[2022-01-14] MEDS: oxyCODONE HCL 5 MG TABLET PO PRN ×4 (05:58→21:58)
[2022-01-14 11:08] LABS: BASO % 0.4 % (0-2.0); EOS % 0.5 % (0-4.5); HEMATOCRIT 22.2 % (32.4-45.2); HEMOGLOBIN 7.3 GM/dL (10.7-15.3); LYMPH % 30.2 % (8-40); MCH 27.1 pg (25.7-33.7); MCHC 32.8 g/dl (32.0-36.0); MEAN CELL VOLUME 82.8 fl (80-96); MEAN PLT VOLUME 6.6 fl (7.5-11.1); MONO % 7.1 % (3.8-10.2); NEUT % 61.8 % (42.8-82.8); PLATELET COUNT 422 10^3/uL (134-434); RBC 2.68 M/mm3 (3.60-5.2); RDW 15.7 % (11.6-15.6)
[2022-01-14] MEDS: ASCORBIC ACID 250 MG TABLET (FP) PO SCH ×2 (11:19→21:49)
[2022-01-14] MEDS: VALSARTAN 160 MG TABLET PO SCH (11:19)
[2022-01-14] MEDS: MULTIVIT-MINERALS ORAL LIQUID PO SCH (11:19)
[2022-01-14 11:32] LABS: ALBUMIN 2.4 g/dl (3.4-5.0); CALCIUM 8.2 mg/dL (8.5-10.1)
[2022-01-14 11:33] LABS: BLOOD UREA NITROGEN 10.7 mg/dL (7-18)
[2022-01-14 11:35] LABS: CREATININE 1.1 mg/dL (0.55-1.3)
[2022-01-14 11:37] LABS: BILIRUBIN,TOTAL 0.3 mg/dL (0.2-1); TOT PROT 5.8 g/dl (6.4-8.2)
[2022-01-14] MEDS: ENOXAPARIN NA (PORCINE) 40 MG/0.4 ML DISP.SYRIN SQ SCH ×2 (11:52→21:49)
[2022-01-14] MEDS: VANCOMYCIN 1 GRAM (PRE-DOCKED) 1,000 MG/250 ML BAG IVPB SCH (11:52)
[2022-01-14] MEDS ORDERED: POTASSIUM CHLORIDE TABS 20 MEQ TABLET.ER (FP) PO ONE (15:35)
[2022-01-14] MEDS: ACETAMINOPHEN 325 MG TABLET (FP) PO PRN (15:58)
[2022-01-14] MEDS: DEXTROSE 5%-NORMAL SALINE 1,000 ML IV SCH (20:31)
[2022-01-14] MEDS ORDERED: VANCOMYCIN/WATER FOR INJ (PEG) 1,000 MG/250 ML BAG IVPB SCH (20:53)
[2022-01-14] MEDS: VANCOMYCIN/WATER FOR INJ (PEG) 1,000 MG/200 ML BAG IVPB SCH (21:48)
[2022-01-14] MEDS: DOCUSATE SODIUM 100 MG CAPSULE (FP) PO SCH (21:49)
[2022-01-15] MEDS ORDERED: PIPERACILLIN/TAZOBACTAM 4.5 GM VIAL IVPB ONE ×3 (01:33→17:28)
[2022-01-15] MEDS ORDERED: DEXTROSE 5%-WATER 100 ML IVPB ONE ×3 (01:33→17:28)
[2022-01-15] MEDS: PIPERACILLIN/TAZOB 4.5 GM 4.5 GM in DEXTROSE 5%-WATER 100 ML IVPB SCH ×3 (01:34→21:46)
[2022-01-15] MEDS: DEXTROSE 5%-NORMAL SALINE 1,000 ML IV SCH ×2 (01:36→15:05)
[2022-01-15] MEDS: GABAPENTIN 100 MG CAPSULE PO SCH ×3 (05:54→21:53)
[2022-01-15] MEDS: oxyCODONE HCL 5 MG TABLET PO PRN ×3 (06:06→21:56)
[2022-01-15 09:45] LABS: BASO % 0.3 % (0-2.0); EOS % 2.6 % (0-4.5); HEMATOCRIT 21.3 % (32.4-45.2); HEMOGLOBIN 7.1 GM/dL (10.7-15.3); LYMPH % 30.6 % (8-40); MCH 27.3 pg (25.7-33.7); MCHC 33.2 g/dl (32.0-36.0); MEAN CELL VOLUME 82.4 fl (80-96); MEAN PLT VOLUME 7.2 fl (7.5-11.1); MONO % 5.1 % (3.8-10.2); NEUT % 61.4 % (42.8-82.8); PLATELET COUNT 403 10^3/uL (134-434); RBC 2.58 M/mm3 (3.60-5.2); RDW 15.3 % (11.6-15.6); WHITE BLOOD COUNT 9.2 K/mm3 (4.0-10.0)
[2022-01-15] MEDS: VANCOMYCIN/WATER FOR INJ (PEG) 1,000 MG/200 ML BAG IVPB SCH ×2 (10:04→21:51)
[2022-01-15] MEDS: MULTIVIT-MINERALS ORAL LIQUID PO SCH (10:04)
[2022-01-15] MEDS: ASCORBIC ACID 250 MG TABLET (FP) PO SCH ×2 (10:05→21:55)
[2022-01-15] MEDS: ENOXAPARIN NA (PORCINE) 40 MG/0.4 ML DISP.SYRIN SQ SCH ×2 (10:06→21:53)
[2022-01-15] MEDS: VALSARTAN 160 MG TABLET PO SCH (10:06)
[2022-01-15 10:11] LABS: ALBUMIN 2.3 g/dl (3.4-5.0); CALCIUM 8.1 mg/dL (8.5-10.1)
[2022-01-15 10:12] LABS: BLOOD UREA NITROGEN 11.8 mg/dL (7-18)
[2022-01-15 10:16] LABS: BILIRUBIN,TOTAL 0.3 mg/dL (0.2-1); TOT PROT 5.7 g/dl (6.4-8.2)
[2022-01-15] MEDS: DOCUSATE SODIUM 100 MG CAPSULE (FP) PO SCH (21:53)
[2022-01-16] MEDS ORDERED: PIPERACILLIN/TAZOBACTAM 4.5 GM VIAL IVPB ONE ×2 (02:54→10:23)
[2022-01-16] MEDS ORDERED: DEXTROSE 5%-WATER 100 ML IVPB ONE ×3 (02:54→14:50)
[2022-01-16] MEDS: PIPERACILLIN/TAZOB 4.5 GM 4.5 GM in DEXTROSE 5%-WATER 100 ML IVPB SCH ×2 (03:54→10:28)
[2022-01-16] MEDS: GABAPENTIN 100 MG CAPSULE PO SCH ×3 (06:07→21:02)
[2022-01-16] MEDS: DEXTROSE 5%-NORMAL SALINE 1,000 ML IV SCH ×4 (06:40→20:30)
[2022-01-16] MEDS: VANCOMYCIN/WATER FOR INJ (PEG) 1,000 MG/200 ML BAG IVPB SCH ×2 (08:54→12:12)
[2022-01-16] MEDS: oxyCODONE HCL 5 MG TABLET PO PRN ×3 (10:27→20:52)
[2022-01-16] MEDS: ENOXAPARIN NA (PORCINE) 40 MG/0.4 ML DISP.SYRIN SQ SCH (10:28)
[2022-01-16] MEDS: ASCORBIC ACID 250 MG TABLET (FP) PO SCH ×2 (10:29→21:03)
[2022-01-16] MEDS: MULTIVIT-MINERALS ORAL LIQUID PO SCH (10:29)
[2022-01-16] MEDS: VALSARTAN 160 MG TABLET PO SCH (10:29)
[2022-01-16 11:11] LABS: HEMATOCRIT 24.6 % (32.4-45.2); HEMOGLOBIN 8.2 GM/dL (10.7-15.3); MCH 27.6 pg (25.7-33.7); MCHC 33.4 g/dl (32.0-36.0); MEAN CELL VOLUME 82.6 fl (80-96); MEAN PLT VOLUME 6.8 fl (7.5-11.1); PLATELET COUNT 374 10^3/uL (134-434); RBC 2.98 M/mm3 (3.60-5.2); RDW 15.6 % (11.6-15.6); WHITE BLOOD COUNT 8.2 K/mm3 (4.0-10.0)
[2022-01-16 11:39] LABS: ALBUMIN 1.9 g/dl (3.4-5.0); BLOOD UREA NITROGEN 8.8 mg/dL (7-18); MAGNESIUM 1.9 mg/dL (1.8-2.4)
[2022-01-16 11:42] LABS: CREATININE 0.7 mg/dL (0.55-1.3)
[2022-01-16 11:43] LABS: BILIRUBIN,TOTAL 0.5 mg/dL (0.2-1)
[2022-01-16] MEDS: CEFTRIAXONE 2 GM in DEXTROSE 5%-WATER 2 GM/100 ML BAG IVPB SCH (15:04)
[2022-01-16] MEDS: ACETAMINOPHEN 325 MG TABLET (FP) PO PRN (19:00)
[2022-01-16] MEDS: DOCUSATE SODIUM 100 MG CAPSULE (FP) PO SCH (21:02)
[2022-01-17] MEDS: GABAPENTIN 100 MG CAPSULE PO SCH ×3 (05:37→21:32)
[2022-01-17] MEDS: DEXTROSE 5%-NORMAL SALINE 1,000 ML IV SCH ×2 (06:01→20:51)
[2022-01-17] MEDS ORDERED: DEXTROSE 5%-WATER 100 ML IVPB ONE (09:07)
[2022-01-17] MEDS: MULTIVIT-MINERALS ORAL LIQUID PO SCH (09:14)
[2022-01-17] MEDS: oxyCODONE HCL 5 MG TABLET PO PRN ×3 (09:14→21:31)
[2022-01-17] MEDS: VALSARTAN 160 MG TABLET PO SCH (09:14)
[2022-01-17] MEDS: ASCORBIC ACID 250 MG TABLET (FP) PO SCH ×2 (09:15→22:30)
[2022-01-17] MEDS: CEFTRIAXONE 2 GM in DEXTROSE 5%-WATER 2 GM/100 ML BAG IVPB SCH (09:16)
[2022-01-17] MEDS ORDERED: ceFAZolin SODIUM 1 GM VIAL ONE (15:57)
[2022-01-17] MEDS: DOCUSATE SODIUM 100 MG CAPSULE (FP) PO SCH (21:31)
[2022-01-18] MEDS: GABAPENTIN 100 MG CAPSULE PO SCH ×3 (06:01→21:29)
[2022-01-18] MEDS: oxyCODONE HCL 5 MG TABLET PO PRN ×4 (06:01→22:15)
[2022-01-18] MEDS: DEXTROSE 5%-NORMAL SALINE 1,000 ML IV SCH ×2 (06:05→21:31)
[2022-01-18] MEDS ORDERED: DEXTROSE 5%-WATER 100 ML IVPB ONE (10:48)
[2022-01-18] MEDS: VALSARTAN 160 MG TABLET PO SCH (10:52)
[2022-01-18] MEDS: CEFTRIAXONE 2 GM in DEXTROSE 5%-WATER 2 GM/100 ML BAG IVPB SCH (10:52)
[2022-01-18] MEDS: ASCORBIC ACID 250 MG TABLET (FP) PO SCH ×2 (10:52→21:31)
[2022-01-18 12:21] LABS: HEMATOCRIT 26.3 % (32.4-45.2); HEMOGLOBIN 8.9 GM/dL (10.7-15.3); MCH 28.3 pg (25.7-33.7); MCHC 33.8 g/dl (32.0-36.0); MEAN CELL VOLUME 83.7 fl (80-96); PLATELET COUNT 337 10^3/uL (134-434); RBC 3.14 M/mm3 (3.60-5.2); RDW 16.3 % (11.6-15.6); WHITE BLOOD COUNT 9.7 K/mm3 (4.0-10.0)
[2022-01-18 12:42] LABS: ALBUMIN 1.8 g/dl (3.4-5.0); CALCIUM 8.1 mg/dL (8.5-10.1)
[2022-01-18 12:43] LABS: BLOOD UREA NITROGEN 3.4 mg/dL (7-18)
[2022-01-18 12:45] LABS: CREATININE 0.5 mg/dL (0.55-1.3)
[2022-01-18 12:47] LABS: BILIRUBIN,TOTAL 0.3 mg/dL (0.2-1); TOT PROT 4.8 g/dl (6.4-8.2)
[2022-01-18] MEDS: MULTIVIT-MINERALS ORAL LIQUID PO SCH (14:27)
[2022-01-18] MEDS ORDERED: POTASSIUM CHLORIDE TABS 10 MEQ TABLET.ER (FP) PO ONE (17:50)
[2022-01-18] MEDS: DOCUSATE SODIUM 100 MG CAPSULE (FP) PO SCH (21:30)
[2022-01-19] MEDS: GABAPENTIN 100 MG CAPSULE PO SCH ×3 (05:49→21:09)
[2022-01-19] MEDS: oxyCODONE HCL 5 MG TABLET PO PRN ×5 (07:55→22:57)
[2022-01-19] MEDS ORDERED: LIDOCAINE HCL/PF 2% SDV 5ML VIAL ONE (08:17)
[2022-01-19] MEDS ORDERED: PROPOFOL 20 ML ONE (08:17)
[2022-01-19] MEDS ORDERED: VANCOMYCIN 1,000 MG VIAL (RESTRICTED TO ID ONLY) ONE (08:40)
[2022-01-19] MEDS ORDERED: ROCURONIUM BROMIDE 50 MG/5 ML SYRINGE ONE (08:59)
[2022-01-19 09:19] LABS: CALCIUM 8.3 mg/dL (8.5-10.1)
[2022-01-19 09:20] LABS: MAGNESIUM 1.7 mg/dL (1.8-2.4)
[2022-01-19 09:22] LABS: HEMATOCRIT 29.3 % (32.4-45.2); HEMOGLOBIN 9.6 GM/dL (10.7-15.3); MCH 27.8 pg (25.7-33.7); MCHC 32.8 g/dl (32.0-36.0); MEAN CELL VOLUME 84.6 fl (80-96); MEAN PLT VOLUME 6.9 fl (7.5-11.1); PLATELET COUNT 366 10^3/uL (134-434); RBC 3.46 M/mm3 (3.60-5.2); RDW 16.8 % (11.6-15.6); WHITE BLOOD COUNT 10.3 K/mm3 (4.0-10.0)
[2022-01-19 09:23] LABS: CREATININE 0.5 mg/dL (0.55-1.3)
[2022-01-19] MEDS ORDERED: PHENYLEPHRINE HCL 10 MG/1 ML SINGLE DOSE VIAL ONE (09:33)
[2022-01-19] MEDS ORDERED: ceFAZolin SODIUM 1 GM VIAL IVPB ONE (09:50)
[2022-01-19] MEDS ORDERED: VANCOMYCIN 1 GM in D5W (PRE-DOCKED) 1,000 MG/250 ML IVPB ONE (09:54)
[2022-01-19] MEDS ORDERED: ONDANSETRON 4 MG/2 ML VIAL ONE (10:06)
[2022-01-19] MEDS ORDERED: SUGAMMADEX SODIUM 200 MG/2 ML VIAL ONE (10:09)
[2022-01-19] MEDS ORDERED: GLYCOPYRROLATE 0.2 MG/1 ML VIAL ONE (10:11)
[2022-01-19] MEDS ORDERED: NEOSTIGMINE METHYLSULFATE 0.5 MG/1 ML - 10 ML MDV ONE (10:11)
[2022-01-19] MEDS ORDERED: ONDANSETRON 4 MG/2 ML VIAL IVPUSH PRN (10:59)
[2022-01-19] MEDS ORDERED: MAGNESIUM SULF 50% (8.12 MEQ/2 ML-1 GM VIAL) ONE (11:17)
[2022-01-19] MEDS ORDERED: MAGNESIUM 1GM/D5W 100ML - 100 ML IVPB IVPB ONE (11:45)
[2022-01-19] MEDS ORDERED: DEXTROSE 5%-WATER 100 ML IVPB ONE (12:05)
[2022-01-19] MEDS: ASCORBIC ACID 250 MG TABLET (FP) PO SCH ×2 (12:12→21:09)
[2022-01-19] MEDS: VALSARTAN 160 MG TABLET PO SCH (12:13)
[2022-01-19] MEDS: MULTIVIT-MINERALS ORAL LIQUID PO SCH (12:13)
[2022-01-19] MEDS: LACTATED RINGERS SOLUTION 1,000 ML IV SCH (12:49)
[2022-01-19] MEDS: CEFTRIAXONE 2 GM in DEXTROSE 5%-WATER 2 GM/100 ML BAG IVPB SCH (12:49)
[2022-01-19] MEDS: DEXTROSE 5%-NORMAL SALINE 1,000 ML IV SCH (19:56)
[2022-01-19] MEDS: ACETAMINOPHEN 325 MG TABLET (FP) PO PRN (19:56)
[2022-01-19] MEDS: DOCUSATE SODIUM 100 MG CAPSULE (FP) PO SCH (21:09)
[2022-01-20] MEDS: GABAPENTIN 100 MG CAPSULE PO SCH ×3 (05:45→21:47)
[2022-01-20] MEDS: LACTATED RINGERS SOLUTION 1,000 ML IV SCH ×2 (05:46→14:07)
[2022-01-20] MEDS: oxyCODONE HCL 5 MG TABLET PO PRN ×4 (05:46→21:47)
[2022-01-20] MEDS ORDERED: DEXTROSE 5%-WATER 100 ML IVPB ONE (09:40)
[2022-01-20] MEDS: VALSARTAN 160 MG TABLET PO SCH (09:49)
[2022-01-20] MEDS: ASCORBIC ACID 250 MG TABLET (FP) PO SCH ×2 (09:49→22:00)
[2022-01-20] MEDS: MULTIVIT-MINERALS ORAL LIQUID PO SCH (09:49)
[2022-01-20] MEDS: CEFTRIAXONE 2 GM in DEXTROSE 5%-WATER 2 GM/100 ML BAG IVPB SCH (09:50)
[2022-01-20] MEDS: DEXTROSE 5%-NORMAL SALINE 1,000 ML IV SCH (20:00)
[2022-01-20] MEDS: ENOXAPARIN NA (PORCINE) 40 MG/0.4 ML DISP.SYRIN SQ SCH (21:46)
[2022-01-20] MEDS: DOCUSATE SODIUM 100 MG CAPSULE (FP) PO SCH ×2 (21:47→21:59)
[2022-01-21] MEDS: GABAPENTIN 100 MG CAPSULE PO SCH ×3 (05:59→21:50)
[2022-01-21] MEDS: oxyCODONE HCL 5 MG TABLET PO PRN ×3 (05:59→20:03)
[2022-01-21 09:56] LABS: HEMOGLOBIN 9.1 GM/dL (10.7-15.3); MCH 28.6 pg (25.7-33.7); MCHC 33.6 g/dl (32.0-36.0); MEAN CELL VOLUME 85.2 fl (80-96); MEAN PLT VOLUME 7.2 fl (7.5-11.1); PLATELET COUNT 333 10^3/uL (134-434); RBC 3.17 M/mm3 (3.60-5.2); WHITE BLOOD COUNT 10.8 K/mm3 (4.0-10.0)
[2022-01-21 10:10] LABS: CALCIUM 8.2 mg/dL (8.5-10.1)
[2022-01-21 10:11] LABS: BLOOD UREA NITROGEN 5.4 mg/dL (7-18); MAGNESIUM 1.8 mg/dL (1.8-2.4)
[2022-01-21] MEDS: CEFTRIAXONE 2 GM in DEXTROSE 5%-WATER 2 GM/100 ML BAG IVPB SCH (10:12)
[2022-01-21] MEDS: ACETAMINOPHEN 325 MG TABLET (FP) PO PRN (10:13)
[2022-01-21 10:14] LABS: CREATININE 0.5 mg/dL (0.55-1.3)
[2022-01-21] MEDS: ASCORBIC ACID 250 MG TABLET (FP) PO SCH ×2 (10:14→21:50)
[2022-01-21] MEDS: VALSARTAN 160 MG TABLET PO SCH (10:14)
[2022-01-21] MEDS: ENOXAPARIN NA (PORCINE) 40 MG/0.4 ML DISP.SYRIN SQ SCH ×2 (10:14→21:51)
[2022-01-21] MEDS: MULTIVIT-MINERALS ORAL LIQUID PO SCH (10:14)
[2022-01-21] MEDS: LACTATED RINGERS SOLUTION 1,000 ML IV SCH (13:09)
[2022-01-21] MEDS: DEXTROSE 5%-NORMAL SALINE 1,000 ML IV SCH (21:50)
[2022-01-21] MEDS: DOCUSATE SODIUM 100 MG CAPSULE (FP) PO SCH (21:51)
[2022-01-22] MEDS: oxyCODONE HCL 5 MG TABLET PO PRN ×2 (06:08→20:05)
[2022-01-22] MEDS: GABAPENTIN 100 MG CAPSULE PO SCH ×3 (06:09→21:33)
[2022-01-22] MEDS: VALSARTAN 160 MG TABLET PO SCH (09:39)
[2022-01-22] MEDS: ENOXAPARIN NA (PORCINE) 40 MG/0.4 ML DISP.SYRIN SQ SCH ×2 (09:40→21:34)
[2022-01-22] MEDS: MULTIVIT-MINERALS ORAL LIQUID PO SCH (09:40)
[2022-01-22] MEDS: ASCORBIC ACID 250 MG TABLET (FP) PO SCH ×2 (09:41→21:33)
[2022-01-22] MEDS: CEFTRIAXONE 2 GM in DEXTROSE 5%-WATER 2 GM/100 ML BAG IVPB SCH (10:42)
[2022-01-22] MEDS: LACTATED RINGERS SOLUTION 1,000 ML IV SCH (10:44)
[2022-01-22] MEDS ORDERED: CASPOFUNGIN ACETATE 70 MG in SODIUM CHLORIDE 250 ML IVPB ONE (13:00)
[2022-01-22] MEDS: DEXTROSE 5%-NORMAL SALINE 1,000 ML IV SCH (20:08)
[2022-01-22] MEDS: ACETAMINOPHEN 325 MG TABLET (FP) PO PRN (21:32)
[2022-01-22] MEDS: DOCUSATE SODIUM 100 MG CAPSULE (FP) PO SCH (21:33)
[2022-01-23] MEDS: LACTATED RINGERS SOLUTION 1,000 ML IV SCH ×2 (01:16→11:50)
[2022-01-23] MEDS: oxyCODONE HCL 5 MG TABLET PO PRN ×2 (05:50→15:30)
[2022-01-23] MEDS: GABAPENTIN 100 MG CAPSULE PO SCH ×3 (05:51→21:35)
[2022-01-23] MEDS ORDERED: DEXTROSE 5%-WATER 100 ML IVPB ONE (09:41)
[2022-01-23] MEDS: CEFTRIAXONE 2 GM in DEXTROSE 5%-WATER 2 GM/100 ML BAG IVPB SCH (10:03)
[2022-01-23] MEDS: MULTIVIT-MINERALS ORAL LIQUID PO SCH (10:04)
[2022-01-23] MEDS: VALSARTAN 160 MG TABLET PO SCH (10:04)
[2022-01-23] MEDS: ENOXAPARIN NA (PORCINE) 40 MG/0.4 ML DISP.SYRIN SQ SCH ×2 (10:04→21:36)
[2022-01-23] MEDS: ASCORBIC ACID 250 MG TABLET (FP) PO SCH ×2 (10:04→21:35)
[2022-01-23 11:03] LABS: HEMATOCRIT 24.4 % (32.4-45.2); HEMOGLOBIN 8.2 GM/dL (10.7-15.3); MCHC 33.6 g/dl (32.0-36.0); MEAN CELL VOLUME 83.3 fl (80-96); MEAN PLT VOLUME 7.3 fl (7.5-11.1); PLATELET COUNT 338 10^3/uL (134-434); RBC 2.92 M/mm3 (3.60-5.2); RDW 16.8 % (11.6-15.6)
[2022-01-23 11:18] LABS: CHLORIDE 107 mmol/L (98-107); SODIUM 141 mmol/L (136-145)
[2022-01-23 11:22] LABS: CALCIUM 8.2 mg/dL (8.5-10.1)
[2022-01-23 11:23] LABS: ANION GAP 6 MMOL/L (8-16); CO2 28 mmol/L (21-32); GLUCOSE,RANDOM 94 mg/dL (74-106)
[2022-01-23 11:26] LABS: CREATININE 0.4 mg/dL (0.55-1.3)
[2022-01-23 11:44] LABS: BLOOD UREA NITROGEN 2.9 mg/dL (7-18)
[2022-01-23] MEDS: CASPOFUNGIN ACETATE 50 MG in SODIUM CHLORIDE 250 ML IVPB SCH (11:51)
[2022-01-23] MEDS ORDERED: IRON SUCROSE INJECTION 200 MG in SODIUM CHLORIDE 90 ML IVPB ONE (21:00)
[2022-01-23] MEDS: DOCUSATE SODIUM 100 MG CAPSULE (FP) PO SCH (21:35)
[2022-01-23] MEDS: DEXTROSE 5%-NORMAL SALINE 1,000 ML IV SCH (21:37)
[2022-01-24] MEDS: oxyCODONE HCL 5 MG TABLET PO PRN ×3 (00:47→18:10)
[2022-01-24] MEDS: GABAPENTIN 100 MG CAPSULE PO SCH ×3 (06:02→21:04)
[2022-01-24] MEDS: LACTATED RINGERS SOLUTION 1,000 ML IV SCH ×2 (08:55→12:20)
[2022-01-24] MEDS ORDERED: DEXTROSE 5%-WATER 100 ML IVPB ONE (10:18)
[2022-01-24] MEDS: CEFTRIAXONE 2 GM in DEXTROSE 5%-WATER 100 ML IVPB SCH (10:21)
[2022-01-24] MEDS: MULTIVIT-MINERALS ORAL LIQUID PO SCH (10:22)
[2022-01-24] MEDS: ASCORBIC ACID 250 MG TABLET (FP) PO SCH ×2 (10:22→21:06)
[2022-01-24] MEDS: POLYETHYLENE GLYCOL (HEALTHYLAX) 3350 17 GM PACKET PO SCH (10:22)
[2022-01-24] MEDS: ENOXAPARIN NA (PORCINE) 40 MG/0.4 ML DISP.SYRIN SQ SCH ×2 (10:22→21:04)
[2022-01-24] MEDS: VALSARTAN 160 MG TABLET PO SCH (10:22)
[2022-01-24] MEDS: CASPOFUNGIN ACETATE 50 MG in SODIUM CHLORIDE 250 ML IVPB SCH (12:32)
[2022-01-24] MEDS: ACETAMINOPHEN 325 MG TABLET (FP) PO PRN (15:20)
[2022-01-24] MEDS: DEXTROSE 5%-NORMAL SALINE 1,000 ML IV SCH (20:26)
[2022-01-24] MEDS: DOCUSATE SODIUM 100 MG CAPSULE (FP) PO SCH (21:05)
[2022-01-25] MEDS: oxyCODONE HCL 5 MG TABLET PO PRN ×3 (00:13→20:48)
[2022-01-25] MEDS: LACTATED RINGERS SOLUTION 1,000 ML IV SCH ×3 (02:49→17:32)
[2022-01-25] MEDS: GABAPENTIN 100 MG CAPSULE PO SCH ×2 (05:50→17:26)
[2022-01-25] MEDS: ACETAMINOPHEN 325 MG TABLET (FP) PO PRN ×2 (05:50→20:49)
[2022-01-25] MEDS ORDERED: DEXTROSE 5%-WATER 100 ML IVPB ONE (09:50)
[2022-01-25] MEDS: ASCORBIC ACID 250 MG TABLET (FP) PO SCH ×2 (10:07→21:07)
[2022-01-25] MEDS: CEFTRIAXONE 2 GM in DEXTROSE 5%-WATER 100 ML IVPB SCH (10:07)
[2022-01-25] MEDS: MULTIVIT-MINERALS ORAL LIQUID PO SCH (10:07)
[2022-01-25] MEDS: VALSARTAN 160 MG TABLET PO SCH (10:07)
[2022-01-25] MEDS: POLYETHYLENE GLYCOL (HEALTHYLAX) 3350 17 GM PACKET PO SCH (10:08)
[2022-01-25] MEDS: ENOXAPARIN NA (PORCINE) 40 MG/0.4 ML DISP.SYRIN SQ SCH ×2 (10:08→21:06)
[2022-01-25] MEDS ORDERED: VANCOMYCIN 1,000 MG VIAL (RESTRICTED TO ID ONLY) ONE ×2 (10:49→12:46)
[2022-01-25] MEDS ORDERED: ROCURONIUM BROMIDE 100 MG/10 ML VIAL ONE (11:32)
[2022-01-25] MEDS ORDERED: MIDAZOLAM HCL 2 MG/2 ML SINGLE DOSE VIAL ONE (11:32)
[2022-01-25] MEDS ORDERED: PROPOFOL 20 ML ONE (11:32)
[2022-01-25] MEDS ORDERED: SEVOFLURANE 250 ML BTL ONE (11:38)
[2022-01-25] MEDS ORDERED: LIDOCAINE 1%/EPI 1:100000 (20 ML MULTI DOSE VIAL) ONE (12:16)
[2022-01-25] MEDS ORDERED: DEXAMETHASONE SOD PHOSPHATE 4 MG/1 ML VIAL ONE (12:33)
[2022-01-25] MEDS ORDERED: ONDANSETRON 4 MG/2 ML VIAL ONE (12:33)
[2022-01-25] MEDS ORDERED: VANCOMYCIN 1,000 MG VIAL (RESTRICTED TO ID ONLY) IVPB ONE ×2 (12:40→13:36)
[2022-01-25] MEDS ORDERED: NYSTATIN 100,000 UNIT/GM TOPICAL CREAM 15 GM TUBE TP ONE (13:32)
[2022-01-25] MEDS ORDERED: LIDOCAINE 1%/EPI 1:100000 (20 ML MULTI DOSE VIAL) PNB ONE (13:37)
[2022-01-25] MEDS ORDERED: BUPIVACAINE HCL/PF 0.25% (2.5MG/ML) 10 ML VIAL ONE (13:40)
[2022-01-25] MEDS ORDERED: BUPIVACAINE HCL/PF 0.25% (2.5MG/ML) 10 ML VIAL IJ ONE (13:42)
[2022-01-25] MEDS ORDERED: BACITRACIN 15 GM TUBE TOPICAL OINTMENT ONE (14:44)
[2022-01-25] MEDS ORDERED: NEOSTIGMINE METHYLSULFATE 0.5 MG/ML - 10 ML MDV ONE (14:45)
[2022-01-25] MEDS ORDERED: GLYCOPYRROLATE 0.2 MG/1 ML VIAL ONE (14:45)
[2022-01-25] MEDS ORDERED: ONDANSETRON 4 MG/2 ML VIAL IVPUSH PRN ×2 (15:17→16:29)
[2022-01-25] MEDS ORDERED: LACTATED RINGERS SOLUTION 1,000 ML IV SCH (15:30)
[2022-01-25] MEDS ORDERED: HYDROmorphone HCl 2 MG/ML VIAL ONE (15:42)
[2022-01-25] MEDS: HYDROmorphone HCl 2 MG/ML VIAL IVPUSH PRN ×3 (15:45→16:15)
[2022-01-25] MEDS ORDERED: traMADol HCL 50 MG TABLET PO PRN (16:29)
[2022-01-25] MEDS: CASPOFUNGIN ACETATE 50 MG in SODIUM CHLORIDE 250 ML IVPB SCH ×2 (17:26→18:11)
[2022-01-25] MEDS: DOCUSATE SODIUM 100 MG CAPSULE (FP) PO SCH (21:05)
[2022-01-25] MEDS: GABAPENTIN 300 MG CAPSULE PO SCH (21:06)
[2022-01-25] MEDS ORDERED: GABAPENTIN 100 MG CAPSULE PO SCH (22:00)
[2022-01-26] MEDS: GABAPENTIN 300 MG CAPSULE PO SCH ×3 (06:23→21:19)
[2022-01-26] MEDS: oxyCODONE HCL 5 MG TABLET PO PRN ×3 (06:23→17:54)
[2022-01-26] MEDS ORDERED: DEXTROSE 5%-WATER 100 ML IVPB ONE (09:46)
[2022-01-26] MEDS: CEFTRIAXONE 2 GM in DEXTROSE 5%-WATER 100 ML IVPB SCH (09:52)
[2022-01-26] MEDS: ASCORBIC ACID 250 MG TABLET (FP) PO SCH ×2 (09:52→21:19)
[2022-01-26] MEDS: MULTIVIT-MINERALS ORAL LIQUID PO SCH (09:52)
[2022-01-26] MEDS: VALSARTAN 160 MG TABLET PO SCH (09:52)
[2022-01-26] MEDS: ENOXAPARIN NA (PORCINE) 40 MG/0.4 ML DISP.SYRIN SQ SCH ×2 (09:53→21:19)
[2022-01-26] MEDS: POLYETHYLENE GLYCOL (HEALTHYLAX) 3350 17 GM PACKET PO SCH (09:53)
[2022-01-26] MEDS ORDERED: GABAPENTIN 300 MG CAPSULE PO SCH (10:00)
[2022-01-26] MEDS: ACETAMINOPHEN 325 MG TABLET (FP) PO PRN ×2 (10:12→21:21)
[2022-01-26] MEDS ORDERED: oxyCODONE HCL 5 MG TABLET PO PRN (13:39)
[2022-01-26] MEDS: traMADol HCL 50 MG TABLET PO PRN (13:51)
[2022-01-26] MEDS: CASPOFUNGIN ACETATE 50 MG in SODIUM CHLORIDE 250 ML IVPB SCH (14:31)
[2022-01-26] MEDS: LACTATED RINGERS SOLUTION 1,000 ML IV SCH (17:54)
[2022-01-26] MEDS: DOCUSATE SODIUM 100 MG CAPSULE (FP) PO SCH (21:19)
[2022-01-27] MEDS: oxyCODONE HCL 5 MG TABLET PO PRN ×3 (05:41→21:40)
[2022-01-27] MEDS: GABAPENTIN 300 MG CAPSULE PO SCH ×3 (05:41→21:31)
[2022-01-27] MEDS: MULTIVIT-MINERALS ORAL LIQUID PO SCH (10:19)
[2022-01-27] MEDS: ASCORBIC ACID 250 MG TABLET (FP) PO SCH ×2 (10:20→21:32)
[2022-01-27] MEDS: VALSARTAN 160 MG TABLET PO SCH (10:20)
[2022-01-27] MEDS: POLYETHYLENE GLYCOL (HEALTHYLAX) 3350 17 GM PACKET PO SCH (10:21)
[2022-01-27] MEDS: ENOXAPARIN NA (PORCINE) 40 MG/0.4 ML DISP.SYRIN SQ SCH ×2 (10:21→21:31)
[2022-01-27 11:52] LABS: HEMATOCRIT 23.1 % (32.4-45.2); HEMOGLOBIN 7.5 GM/dL (10.7-15.3); MCH 27.7 pg (25.7-33.7); MCHC 32.7 g/dl (32.0-36.0); MEAN CELL VOLUME 84.6 fl (80-96); MEAN PLT VOLUME 7.6 fl (7.5-11.1); PLATELET COUNT 407 10^3/uL (134-434); RBC 2.73 M/mm3 (3.60-5.2); RDW 17.3 % (11.6-15.6); WHITE BLOOD COUNT 12.3 K/mm3 (4.0-10.0)
[2022-01-27] MEDS: CEFTRIAXONE 2 GM in DEXTROSE 5%-WATER 100 ML IVPB SCH (12:39)
[2022-01-27] MEDS: traMADol HCL 50 MG TABLET PO PRN (12:44)
[2022-01-27] MEDS: ACETAMINOPHEN 325 MG TABLET (FP) PO PRN (14:33)
[2022-01-27] MEDS: CASPOFUNGIN ACETATE 50 MG in SODIUM CHLORIDE 250 ML IVPB SCH (14:33)
[2022-01-27] MEDS ORDERED: IRON SUCROSE INJECTION 300 MG in SODIUM CHLORIDE 235 ML IVPB ONE (16:53)
[2022-01-27] MEDS: LACTATED RINGERS SOLUTION 1,000 ML IV SCH (17:21)
[2022-01-27] MEDS: DOCUSATE SODIUM 100 MG CAPSULE (FP) PO SCH (21:31)
[2022-01-28] MEDS: GABAPENTIN 300 MG CAPSULE PO SCH ×3 (06:15→21:49)
[2022-01-28] MEDS: oxyCODONE HCL 5 MG TABLET PO PRN ×2 (08:52→18:10)
[2022-01-28] MEDS: FERROUS SO4 325 MG TABLET (FP) PO SCH (08:52)
[2022-01-28] MEDS: CEFTRIAXONE 2 GM in DEXTROSE 5%-WATER 100 ML IVPB SCH (10:14)
[2022-01-28] MEDS: ENOXAPARIN NA (PORCINE) 40 MG/0.4 ML DISP.SYRIN SQ SCH ×2 (10:16→21:51)
[2022-01-28] MEDS: MULTIVIT-MINERALS ORAL LIQUID PO SCH (10:17)
[2022-01-28] MEDS: ASCORBIC ACID 250 MG TABLET (FP) PO SCH ×2 (10:17→21:51)
[2022-01-28] MEDS: POLYETHYLENE GLYCOL (HEALTHYLAX) 3350 17 GM PACKET PO SCH (10:17)
[2022-01-28] MEDS: VALSARTAN 160 MG TABLET PO SCH (10:17)
[2022-01-28] MEDS: CASPOFUNGIN ACETATE 50 MG in SODIUM CHLORIDE 250 ML IVPB SCH (12:57)
[2022-01-28] MEDS: LACTATED RINGERS SOLUTION 1,000 ML IV SCH ×2 (13:00→18:04)
[2022-01-28] MEDS: traMADol HCL 50 MG TABLET PO PRN (21:49)
[2022-01-28] MEDS: DOCUSATE SODIUM 100 MG CAPSULE (FP) PO SCH (21:50)
[2022-01-29] MEDS: GABAPENTIN 300 MG CAPSULE PO SCH ×3 (06:14→22:43)
[2022-01-29] MEDS: LACTATED RINGERS SOLUTION 1,000 ML IV SCH (06:25)
[2022-01-29] MEDS ORDERED: DEXTROSE 5%-WATER 100 ML IVPB ONE (07:57)
[2022-01-29] MEDS: oxyCODONE HCL 5 MG TABLET PO PRN ×3 (08:09→22:44)
[2022-01-29] MEDS: FERROUS SO4 325 MG TABLET (FP) PO SCH (08:11)
[2022-01-29] MEDS: ASCORBIC ACID 250 MG TABLET (FP) PO SCH ×2 (09:13→22:43)
[2022-01-29] MEDS: MULTIVIT-MINERALS ORAL LIQUID PO SCH (09:13)
[2022-01-29] MEDS: ENOXAPARIN NA (PORCINE) 40 MG/0.4 ML DISP.SYRIN SQ SCH ×2 (09:14→22:43)
[2022-01-29] MEDS: POLYETHYLENE GLYCOL (HEALTHYLAX) 3350 17 GM PACKET PO SCH (09:14)
[2022-01-29] MEDS: VALSARTAN 160 MG TABLET PO SCH (09:14)
[2022-01-29] MEDS: CEFTRIAXONE 2 GM in DEXTROSE 5%-WATER 100 ML IVPB SCH (09:15)
[2022-01-29] MEDS: KCL 10 MEQ IVPB 10 MEQ/100 ML INFUS.BAG IVPB SCH ×3 (11:52→13:30)
[2022-01-29 12:14] LABS: BASO % 0.6 % (0-2.0); EOS % 4.1 % (0-4.5); HEMATOCRIT 22.1 % (32.4-45.2); HEMOGLOBIN 7.3 GM/dL (10.7-15.3); LYMPH % 19.9 % (8-40); MCH 27.5 pg (25.7-33.7); MCHC 33.1 g/dl (32.0-36.0); MEAN CELL VOLUME 83.2 fl (80-96); MEAN PLT VOLUME 7.2 fl (7.5-11.1); MONO % 5.7 % (3.8-10.2); NEUT % 69.7 % (42.8-82.8); PLATELET COUNT 406 10^3/uL (134-434); RBC 2.65 M/mm3 (3.60-5.2); RDW 17.3 % (11.6-15.6); WHITE BLOOD COUNT 8.4 K/mm3 (4.0-10.0)
[2022-01-29 12:40] LABS: ALBUMIN 1.5 g/dl (3.4-5.0); BLOOD UREA NITROGEN 3.1 mg/dL (7-18); CALCIUM 7.9 mg/dL (8.5-10.1)
[2022-01-29 12:43] LABS: CREATININE 0.4 mg/dL (0.55-1.3)
[2022-01-29 12:45] LABS: BILIRUBIN,TOTAL 0.2 mg/dL (0.2-1); TOT PROT 4.7 g/dl (6.4-8.2)
[2022-01-29] MEDS ORDERED: POTASSIUM CHLORIDE TABS 20 MEQ TABLET.ER (FP) PO ONE (13:54)
[2022-01-29] MEDS: CASPOFUNGIN ACETATE 50 MG in SODIUM CHLORIDE 250 ML IVPB SCH (14:52)
[2022-01-29] MEDS: DOCUSATE SODIUM 100 MG CAPSULE (FP) PO SCH (22:42)
[2022-01-30] MEDS: GABAPENTIN 300 MG CAPSULE PO SCH ×2 (06:22→14:31)
[2022-01-30] MEDS: FERROUS SO4 325 MG TABLET (FP) PO SCH (08:02)
[2022-01-30] MEDS ORDERED: DEXTROSE 5%-WATER 100 ML IVPB ONE (09:41)
[2022-01-30] MEDS: MULTIVIT-MINERALS ORAL LIQUID PO SCH (09:48)
[2022-01-30] MEDS: POLYETHYLENE GLYCOL (HEALTHYLAX) 3350 17 GM PACKET PO SCH (09:48)
[2022-01-30] MEDS: VALSARTAN 160 MG TABLET PO SCH (09:48)
[2022-01-30] MEDS: ASCORBIC ACID 250 MG TABLET (FP) PO SCH (09:48)
[2022-01-30] MEDS: ENOXAPARIN NA (PORCINE) 40 MG/0.4 ML DISP.SYRIN SQ SCH (09:48)
[2022-01-30] MEDS: CEFTRIAXONE 2 GM in DEXTROSE 5%-WATER 100 ML IVPB SCH (09:49)
[2022-01-30] MEDS: oxyCODONE HCL 5 MG TABLET PO PRN ×2 (10:57→20:17)
[2022-01-30] MEDS: CASPOFUNGIN ACETATE 50 MG in SODIUM CHLORIDE 250 ML IVPB SCH (13:31)
[2022-01-30] MEDS: ACETAMINOPHEN 325 MG TABLET (FP) PO PRN (16:06)
[2022-01-31] MEDS: ENOXAPARIN NA (PORCINE) 40 MG/0.4 ML DISP.SYRIN SQ SCH ×3 (00:40→21:01)
[2022-01-31] MEDS: DOCUSATE SODIUM 100 MG CAPSULE (FP) PO SCH ×2 (00:40→21:01)
[2022-01-31] MEDS: ACETAMINOPHEN 325 MG TABLET (FP) PO PRN (00:41)
[2022-01-31] MEDS: GABAPENTIN 300 MG CAPSULE PO SCH ×4 (00:42→21:01)
[2022-01-31] MEDS: ASCORBIC ACID 250 MG TABLET (FP) PO SCH ×3 (00:43→21:01)
[2022-01-31] MEDS: oxyCODONE HCL 5 MG TABLET PO PRN ×3 (02:51→20:48)
[2022-01-31] MEDS: CEFTRIAXONE 2 GM in DEXTROSE 5%-WATER 100 ML IVPB SCH ×2 (10:15→10:36)
[2022-01-31] MEDS ORDERED: DEXTROSE 5%-WATER 100 ML IVPB ONE (10:32)
[2022-01-31] MEDS: VALSARTAN 160 MG TABLET PO SCH (10:36)
[2022-01-31] MEDS: POLYETHYLENE GLYCOL (HEALTHYLAX) 3350 17 GM PACKET PO SCH (10:36)
[2022-01-31] MEDS: MULTIVIT-MINERALS ORAL LIQUID PO SCH (10:36)
[2022-01-31] MEDS: FERROUS SO4 325 MG TABLET (FP) PO SCH (10:37)
[2022-01-31] MEDS: CASPOFUNGIN ACETATE 50 MG in SODIUM CHLORIDE 250 ML IVPB SCH (12:55)
[2022-02-01] MEDS: oxyCODONE HCL 5 MG TABLET PO PRN ×2 (04:23→09:58)
[2022-02-01] MEDS: GABAPENTIN 300 MG CAPSULE PO SCH ×3 (05:03→21:42)
[2022-02-01] MEDS: FERROUS SO4 325 MG TABLET (FP) PO SCH (08:26)
[2022-02-01] MEDS: CEFTRIAXONE 2 GM in DEXTROSE 5%-WATER 100 ML IVPB SCH (09:53)
[2022-02-01] MEDS: MULTIVIT-MINERALS ORAL LIQUID PO SCH (09:54)
[2022-02-01] MEDS: ENOXAPARIN NA (PORCINE) 40 MG/0.4 ML DISP.SYRIN SQ SCH (09:54)
[2022-02-01] MEDS: ASCORBIC ACID 250 MG TABLET (FP) PO SCH ×2 (09:54→21:43)
[2022-02-01] MEDS: POLYETHYLENE GLYCOL (HEALTHYLAX) 3350 17 GM PACKET PO SCH (09:54)
[2022-02-01] MEDS: VALSARTAN 160 MG TABLET PO SCH (09:54)
[2022-02-01] MEDS: CASPOFUNGIN ACETATE 50 MG in SODIUM CHLORIDE 250 ML IVPB SCH (13:27)
[2022-02-01] MEDS: ACETAMINOPHEN 325 MG TABLET (FP) PO PRN ×2 (13:27→18:14)
[2022-02-01] MEDS: DOCUSATE SODIUM 100 MG CAPSULE (FP) PO SCH ×2 (21:42→21:46)
[2022-02-02] MEDS: ACETAMINOPHEN 325 MG TABLET (FP) PO PRN (00:30)
[2022-02-02] MEDS: GABAPENTIN 300 MG CAPSULE PO SCH ×3 (05:42→21:42)
[2022-02-02] MEDS: FERROUS SO4 325 MG TABLET (FP) PO SCH (08:03)
[2022-02-02] MEDS: POLYETHYLENE GLYCOL (HEALTHYLAX) 3350 17 GM PACKET PO SCH ×2 (10:19→10:25)
[2022-02-02] MEDS: MULTIVIT-MINERALS ORAL LIQUID PO SCH (10:19)
[2022-02-02] MEDS: VALSARTAN 160 MG TABLET PO SCH (10:19)
[2022-02-02] MEDS: CEFTRIAXONE 2 GM in DEXTROSE 5%-WATER 100 ML IVPB SCH (10:20)
[2022-02-02] MEDS: ASCORBIC ACID 250 MG TABLET (FP) PO SCH ×2 (10:20→21:42)
[2022-02-02 11:35] LABS: BASO % 0.5 % (0-2.0); EOS % 4.6 % (0-4.5); HEMATOCRIT 30.4 % (32.4-45.2); HEMOGLOBIN 10.3 GM/dL (10.7-15.3); LYMPH % 19.2 % (8-40); MCH 28.8 pg (25.7-33.7); MCHC 33.9 g/dl (32.0-36.0); MEAN CELL VOLUME 84.8 fl (80-96); MEAN PLT VOLUME 6.5 fl (7.5-11.1); MONO % 5.5 % (3.8-10.2); NEUT % 70.2 % (42.8-82.8); PLATELET COUNT 511 10^3/uL (134-434); RBC 3.58 M/mm3 (3.60-5.2); RDW 17.4 % (11.6-15.6)
[2022-02-02 11:56] LABS: CALCIUM 8.4 mg/dL (8.5-10.1)
[2022-02-02 11:57] LABS: ALBUMIN 1.8 g/dl (3.4-5.0); BLOOD UREA NITROGEN 3.7 mg/dL (7-18)
[2022-02-02 12:00] LABS: CREATININE 0.4 mg/dL (0.55-1.3)
[2022-02-02 12:01] LABS: BILIRUBIN,TOTAL 0.2 mg/dL (0.2-1); TOT PROT 5.6 g/dl (6.4-8.2)
[2022-02-02] MEDS: oxyCODONE HCL 5 MG TABLET PO PRN ×2 (12:15→21:41)
[2022-02-02] MEDS: CASPOFUNGIN ACETATE 50 MG in SODIUM CHLORIDE 250 ML IVPB SCH (14:11)
[2022-02-02] MEDS: AMINO ACIDS/PROTEIN HYDROLYS 30 ML LIQUID.PKT PO SCH (17:59)
[2022-02-02] MEDS: DOCUSATE SODIUM 100 MG CAPSULE (FP) PO SCH (21:43)
[2022-02-02 23:43] VITALS: RESP 18
[2022-02-03] MEDS: GABAPENTIN 300 MG CAPSULE PO SCH ×3 (05:34→21:30)
[2022-02-03] MEDS: FERROUS SO4 325 MG TABLET (FP) PO SCH (08:21)
[2022-02-03] MEDS: AMINO ACIDS/PROTEIN HYDROLYS 30 ML LIQUID.PKT PO SCH (08:21)
[2022-02-03] MEDS: MULTIVIT-MINERALS ORAL LIQUID PO SCH (10:10)
[2022-02-03] MEDS: VALSARTAN 160 MG TABLET PO SCH (10:10)
[2022-02-03] MEDS: POLYETHYLENE GLYCOL (HEALTHYLAX) 3350 17 GM PACKET PO SCH (10:11)
[2022-02-03] MEDS: ASCORBIC ACID 250 MG TABLET (FP) PO SCH ×2 (10:11→21:30)
[2022-02-03] MEDS: CEFTRIAXONE 2 GM in DEXTROSE 5%-WATER 100 ML IVPB SCH (10:11)
[2022-02-03] MEDS: CASPOFUNGIN ACETATE 50 MG in SODIUM CHLORIDE 250 ML IVPB SCH (13:59)
[2022-02-03] MEDS: oxyCODONE HCL 5 MG TABLET PO PRN ×2 (18:28→23:40)
[2022-02-03] MEDS: DOCUSATE SODIUM 100 MG CAPSULE (FP) PO SCH (21:30)
[2022-02-04] MEDS: oxyCODONE HCL 5 MG TABLET PO PRN (06:07)
[2022-02-04] MEDS: GABAPENTIN 300 MG CAPSULE PO SCH ×2 (06:07→13:25)
[2022-02-04] MEDS: AMINO ACIDS/PROTEIN HYDROLYS 30 ML LIQUID.PKT PO SCH (08:11)
[2022-02-04] MEDS: FERROUS SO4 325 MG TABLET (FP) PO SCH (08:11)
[2022-02-04] MEDS: MULTIVIT-MINERALS ORAL LIQUID PO SCH (09:13)
[2022-02-04] MEDS: VALSARTAN 160 MG TABLET PO SCH (09:13)
[2022-02-04] MEDS: CEFTRIAXONE 2 GM in DEXTROSE 5%-WATER 100 ML IVPB SCH (09:13)
[2022-02-04] MEDS: ASCORBIC ACID 250 MG TABLET (FP) PO SCH (09:13)
[2022-02-04] MEDS: POLYETHYLENE GLYCOL (HEALTHYLAX) 3350 17 GM PACKET PO SCH (09:14)
[2022-02-04] MEDS ORDERED: ZINC SULFATE 220 MG CAPSULE (FP) PO SCH (10:00)
[2022-02-04 11:02] VITALS: BP 140/80; PULSE 84; TEMP 97.8
[2022-02-04] MEDS: CASPOFUNGIN ACETATE 50 MG in SODIUM CHLORIDE 250 ML IVPB SCH (13:22)
== END 2022-02-04 17:14 | DRG 857 ==
LOC: JER 18:46 → JERBED 21:58 → J6S 01-12 14:39
PROVIDERS: ADMIT Hospitalist; ATTEND Family Medicine
PROC: 3E1038Z Irrigation of Skin and Mucous Membranes using Irrigating Substance, Percutaneous Approach (ICD-10-PCS; 2022-01-12)
PROC: 0JB70ZZ Excision of Back Subcutaneous Tissue and Fascia, Open Approach (ICD-10-PCS; principal; 2022-01-12 13:30)
PROC: 0JB70ZZ Excision of Back Subcutaneous Tissue and Fascia, Open Approach (ICD-10-PCS; 2022-01-24)
PROC: 3E1038Z Irrigation of Skin and Mucous Membranes using Irrigating Substance, Percutaneous Approach (ICD-10-PCS; 2022-01-24)
PROC: 0JB70ZZ Excision of Back Subcutaneous Tissue and Fascia, Open Approach (ICD-10-PCS; 2022-01-25)
PROC: 0KX Muscles, Transfer (ICD-10-PCS; 2022-01-25)
PROC: 0KX Muscles, Transfer (ICD-10-PCS; 2022-01-25)
PROC: 3E1038Z Irrigation of Skin and Mucous Membranes using Irrigating Substance, Percutaneous Approach (ICD-10-PCS; 2022-01-25)
PROC: 02HV33Z Insertion of Infusion Device into Superior Vena Cava, Percutaneous Approach (ICD-10-PCS; 2022-01-27)
PROC: B548ZZA Ultrasonography of Superior Vena Cava, Guidance (ICD-10-PCS; 2022-01-27)
PROC: B51MZZA Fluoroscopy of Right Upper Extremity Veins, Guidance (ICD-10-PCS; 2022-01-27)
DX: T81.49XA Infection following a procedure, other surgical site, initial encounter (principal); E87.1 Hypo-osmolality and hyponatremia; Z68.42 Body mass index [BMI] 45.0-49.9, adult; G82.20 Paraplegia, unspecified; T81.30XA Disruption of wound, unspecified, initial encounter; Y83.8 Other surgical procedures as the cause of abnormal reaction of the patient, or of later complication, without mention of misadventure at the time of the procedure; I10 Essential (primary) hypertension; M25.562 Pain in left knee; M25.561 Pain in right knee; M21.372 Foot drop, left foot; M21.371 Foot drop, right foot; D64.9 Anemia, unspecified; M51.9 Unspecified thoracic, thoracolumbar and lumbosacral intervertebral disc disorder; D75.839 Thrombocytosis, unspecified; Z85.43 Personal history of malignant neoplasm of ovary; E66.01 Morbid (severe) obesity due to excess calories
CPT/HCPCS: 0241U-QW; 36415; 36430; 36569; 71045-TC-FY; 75820-TC-FY; 80048; 80053; 82550; 82553; 82607; 82728; 82962; 83540; 83550; 83605; 83735; 84484; 85025; 85027; 85610; 85730; 86140; 86850; 86870; 86900; 86901; 86902; 86922; 87040; 87070; 87075; 87102; 87106; 87116; 87186; 87205; 87206; 87210; 93005; 93010; 94760; 95860-TC; 97116-GP; 97162-GP; 99285-25; C9803-CS; G0480; J0637; J1756; P9058; U0003; U0005